=== PATIENT | female | born 1950 | race Caucasian/White ===

== ENCOUNTER 2023-03-03 12:52 | Emergency (ER) | payer MEDICARE, MEDICAID, SELFPAY ==
[2023-03-03] VITALS (8 sets, daily range): BP systolic 105–122; BP diastolic 54–79; PULSE 85–100; RESP 14–18; TEMP 37.1–38.8; O2SAT 89–98; BMI 22.4
--- NOTE | 2023-03-03 14:30 | ED_ITS ---
HPI - Female Genitourinary General: Chief complaint: Urogenital-Female Stated complaint: uti, back pain, headache Time Seen by Provider: 03/03/23 14:21 History of Present Illness: Presents to the ER for complaints of UTI and allover pain. Patient finished a round of Bactrim for UTI that was resistant to Bactrim and by the time she was notified of this approximately 4-5 more days past she has been on the Macrobid which it was sensitive to only for 24 hours. Patient is complaining of stomachache, headache, back and bladder pain, she went to the doctor yesterday and got a shot of Toradol but she is having more pain today than yesterday. Review of Systems General: Reports: 10 or more systems reviewed and unremarkable except in HPI and below PFSH ED PFSH: Medical History (Updated 03/03/23 @ 17:03 by Venu Gaitan DO) Psychiatric care Social History Smoking and tobacco status: never smoked Physical Exam Const: COMMON NORMALS: no acute distress, average body habitus, patient oriented x3, no limitations, healthy appearing, alert and well nourished HENMT: COMMON NORMALS: normocephalic, atraumatic, hearing grossly normal bilaterally, external ears normal, Normal external nose present and moist oral mucous membranes HEAD & SCALP: normocephalic and atraumatic NOSE: Normal external nose present EXTERNAL EAR: Yes external ears normal Neck/C-Spine: COMMON NORMALS: full ROM, no lymphadenopathy, supple, no meningeal signs, no JVD and Thyroid normal THYROID: Thyroid normal Chest: COMMONS NORMALS: normal inspection of the chest and normal palpation of entire chest wall Resp: COMMON NORMALS: normal respiratory effort, No retractions, No use of accessory muscles and clear to auscultation bilaterally AUSCULTATION: clear to auscultation bilaterally Cardio: COMMON NORMALS: no JVD, regular rate, regular rhythm, S1 normal heart sound present, S2 normal heart sound present, No gallops present (Cardio), No clicks present (Cardio), No murmurs present (Cardio) and No rub (Cardio) RATE: regular rate RHYTHM: regular rhythm HEART SOUNDS: S1 normal heart sound present and S2 normal heart sound present GI: COMMON NORMALS: Normal to inspection, nondistended, normoactive bowel sounds present, Soft to palpation, non-tender, No hepatosplenomegaly present and no masses PALPATION: Yes Soft to palpation and Yes No hepatosplenomegaly present : COMMON NORMALS: Yes no CVA tenderness BLADDER/KIDNEY EXAM: Yes no CVA tenderness Back/Pelvis: COMMON NORMALS: no CVA tenderness Neuro: COMMON NORMALS: patient oriented x3 SENSORIUM/ORIENTATION: Yes alert MENINGEAL SIGNS: Yes no meningeal signs Course Vital Signs: Vital signs: Vital Signs Temperature 101.8 F H 03/03/23 14:43 Pulse Rate 100 03/03/23 14:43 Respiratory Rate 18 03/03/23 14:43 Blood Pressure 105/58 03/03/23 16:30 Pulse Oximetry 91 03/03/23 16:00 Oxygen Delivery Me thod Room Air 03/03/23 14:43 MDM - Female Medical Decision Making Patient presents to the ER with complaints of general malaise headache back pain bladder pain. Patient is currently on antibiotic for urinary tract infection was only been on it for 24 hours. Physical exam was performed lab work was obtained which revealed patient's liver enzymes elevated with the AST of 252 and ALT of 138, CT scan with contrast was obtained of the abdomen pelvis which carole wed nonspecific colonic edema otherwise negative. Patient was instructed of these findings and told to continue on her antibiotics as these were the right antibiotics from the culture and sensitivity of her urine from her doctor's office. And she was instructed to follow-up with her doctor in approximately 7 to 10 days for recheck of her liver enzymes. Differential Diagnosis Unlikely abdominal pain, acute appendicitis, calculus of kidney, constipation, diverticulitis, endometriosis, gastroenteritis, pancreatitis or small bowel obstruction Medical Records I reviewed the patient's medical records. Lab Data I reviewed the patient's lab results. 03/03/23 14:38 03/03/23 14:38 Radiology Impressions Abdomen/Pelvis CT 03/03/23 15:35 IMPRESSION: 1. Suggestion of small renal cortical cysts. 2. Mild colonic diverticulosis. Moderate stool content. 3. Suggestion of mild submucosal edema involving the proximal half colon and some mild small bowel thickening. Findings are nonspecific. Consider inflammation. No focal mesenteric stranding. No bowel obstruction. 4. No acute findings otherwise. COMMENTS: Consistent with the [employer]'s Incidental Findings Committee white paper (J Am Patti Radiol 2018): Any incidental renal lesion less than 1 cm or classified as too small to characterize, or any incidental cystic renal lesion characterized as simple-appearing, is likely benign. No follow-up imaging is recommended for these lesions per consensus recommendations based on imaging criteria. Laboratory Results WBC 2.6 10^3/uL (4.0-10.0) L 03/03/23 14:38 RBC 4.93 10^6/uL (4.1-5.3) 03/03/23 14:38 Hgb 14.0 g/dL (11.5-15.3) 03/03/23 14:38 Hct 41.9 % (37.0-47.0) 03/03/23 14:38 MCV 85.0 fl (81-99) 03/03/23 14:38 MCH 28.4 pg (28.0-34.0) 03/03/23 14:38 MCHC 33.4 g/dL (30.0-36.0) 03/03/23 14:38 RDW 12.7 % (12.1-15.1) 03/03/23 14:38 Plt Count 151 10^3/cmm (130-400) 03/03/23 14:38 MPV 9.3 fL (7.4-10.4) 03/03/23 14:38 Neut % (Auto) 80.5 % 03/03/23 14:38 Lymph % (Auto) 14.4 % 03/03/23 14:38 [place] % (Auto) 3.9 % 03/03/23 14:38 Eos % (Auto) 0.0 % 03/03/23 14:38 Baso % (Auto) 0.8 % 03/03/23 14:38 Neut # (Auto) 2.07 10^3/uL (1.8-7.7) 03/03/23 14:38 Lymph # (Auto) 0.4 10^3/uL (0.8-4.8) L 03/03/23 14:38 [place] # (Auto) 0.1 10^3/uL (0.2-0.9) L 03/03/23 14:38 Eos # (Auto) 0.0 10^3/uL (0.0-0.8) 03/03/23 14:38 Baso # (Auto) 0.0 10^3/uL (0.0-0.1) 03/03/23 14:38 Nucleated RBC % (auto) 0 % 03/03/23 14:38 Nucleated RBCs # 0.0 /100WBC 03/03/23 14:38 Sodium 130 mmol/L (136-145) L 03/03/23 14:38 Potassium 4.4 mmol/L (3.5-5.1) 03/03/23 14:38 Chloride 93 mmol/L (98-107) L 03/03/23 14:38 Carbon Dioxide 27 mmol/L (22-29) 03/03/23 14:38 Anion Gap 14.4 (5-19) 03/03/23 14:38 BUN 17 mg/dL (-23) 03/03/23 14:38 Creatinine 0.9 mg/dL (0.5-0.9) 03/03/23 14:38 GFR Calculation 61.9 mL/min (90-130) L 03/03/23 14:38 Glucose 116 mg/dL (65-115) H 03/03/23 14:38 Calculated Osmolality 273 mOsm/kg (285-295) L 03/03/23 14:38 Calcium 9.1 mg/dL (8.5-10.5) 03/03/23 14:38 Total Bilirubin 0.3 mg/dL (0.15-1.2) 03/03/23 14:38 AST 252 U/L (0-32) H 03/03/23 14:38 ALT 138 U/L (0-33) H 03/03/23 14:38 Alkaline Phosphatase 192 U/L (35-105) H 03/03/23 14:38 Total Protein 6.9 g/dL (6.6-8.7) 03/03/23 14:38 Albumin 3.7 g/dL (3.5-5.2) 03/03/23 14:38 Globulin 3.2 g/dL (1.3-4.6) 03/03/23 14:38 Urine Color [place] (Yellow) 03/03/23 15:44 Urine Appearance Cloudy (CLEAR) A 03/03/23 15:44 Urine pH 5 (5-7) 03/03/23 15:44 Ur Specific [place] 1.020 (1.005-1.030) 03/03/23 15:44 Urine Protein 3+ (Negative) H 03/03/23 15:44 Urine Glucose (UA) Norm (Normal) 03/03/23 15:44 Urine Ketones Negative (Negative) 03/03/23 15:44 Urine Blood Neg (Negative) 03/03/23 15:44 Urine Nitrate Positive (Negative) H 03/03/23 15:44 Urine Bilirubin 2+ (Negative) H 03/03/23 15:44 Urine Urobilinogen 8 mg/dL (Negative) H 03/03/23 15:44 Ur Leukocyte Esterase Negative (Negative) 03/03/23 15:44 Urine RBC 0-4 /hpf (0-2) H 03/03/23 15:44 Urine WBC 5-10 /hpf (0-5) H 03/03/23 15:44 Ur Squamous Epith Cells 0-4 /hpf (0-5) H 03/03/23 15:44 Amorphous Sediment 2+ /hpf 03/03/23 15:44 Urine Bacteria Trace /hpf (NONE) 03/03/23 15:44 Hyaline Casts 0-4 /lpf H 03/03/23 15:44 Urine Mucus 1+ /hpf 03/03/23 15:44 Discharge Plan Discharge Patient Disposition: Home Clinical Impression: Colitis, nonspecific, Elevated liver enzymes Urinary tract infection Qualifiers: Urinary tract infection type: acute cystitis Hematuria presence: without hematuria Qualified Code(s): N30.00 - Acute cystitis without hematuria Condition: Stable Prescriptions: No Action clonazepam 1 mg tablet 1 - 2 mg PO BEDTIME PRN (Reason: Sleep) venlafaxine 75 mg capsule,extended release 24hr 75 mg PO QAM sumatriptan succinate 50 mg Tablet 50 mg PO Q2H PRN (Reason: Migraine Headache) Rx Instructions: do not exceed 4 doses per 24 hrs Vitamin B-12 1,000 mcg Tablet 1,000 mcg PO DAILY ginkgo biloba 40 mg Tablet 40 mg PO DAILY Rx Instructions: give with meal/snack nitrofurantoin macrocrystal 100 mg capsule 100 mg PO BID Rx Instructions: for 5 days (rx filled 03/01/23) ondansetron 4 mg tablet,disintegrating 4 mg PO TID PRN (Reason: Nausea) melatonin 5 mg Tablet 10 mg PO BEDTIME ashwagandha root extract 500 mg Capsule 500 mg PO DAILY Discharge Orders: Discharge ED (Routine); Ordered 03/03/23 Ordered By: Venu Gaitan Referrals: Omid Pak DO [Primary Care Provider] - 7-10 days Patient Instructions: Abdominal Pain (ED), Urinary Tract Infection - Women Activity Restrictions/Additional Instructions: Please take all your antibiotics as previously prescribed for your urinary tract infection. Please push plenty of fluids. Please follow-up with your family practice physician in approximately 7 to 10 days or sooner as needed for follow- up for your elevated liver enzymes. Coding Level of Care Code ED Legal Services Professional for Stefany Raza
[2023-03-03] MEDS: ketorolac 30 mg/mL INJ IVP (14:53)
[2023-03-03] MEDS: sodium chloride 0.9% 1,000 ML 999 ML IV (14:54)
[2023-03-03 14:55] LABS: Basophils % 0.8 %; Hematocrit 41.9 % (37.0-47.0); Lymphocytes # 0.4 10^3/uL (0.8-4.8); Lymphocytes % 14.4 %; Mean Corpuscular HGB Conc 33.4 g/dL (30.0-36.0); Mean Corpuscular Hemoglobin 28.4 pg (28.0-34.0); Mean Platelet Volume 9.3 fL (7.4-10.4); Monocytes # 0.1 10^3/uL (0.2-0.9); Monocytes % 3.9 %; Neutrophils # 2.07 10^3/uL (1.8-7.7); Neutrophils % 80.5 %; Nucleated Red Blood Cells % 0 %; Platelet Count 151 10^3/cmm (130-400); Red Blood Count 4.93 10^6/uL (4.1-5.3); Red Cell Distribution Width 12.7 % (12.1-15.1); White Blood Count 2.6 10^3/uL (4.0-10.0)
--- NOTE | 2023-03-03 15:10 | PC.PHAR ---
pt states she takes care of her own medications-pt states she is only taking effexor er 75mg daily filled 02/09/23 90d/s ext also shows er 150mg daily filled 02/09/23 90d/s pt states only taking 75mg qam-pt states she finished her bactrim ds 1 tab q12h for 7 days filled 02/20/23 7d/s-ext shows abilify 2mg daily filled 02/11/23 30d/s pt states she has side effects from abilify pt states only took a few days-pt states she is not taking viibryd 20mg daily fillled 01/07/23 30d/s-pepcid 20mg daily filled 12/12/22 90d/s or protonix 20mg take 40mg daily filled 12/08/22 90d/s-notes are made in the pharmacy comment
[2023-03-03 15:12] LABS: Alanine Aminotransferase 138 U/L (0-33); Albumin Level 3.7 g/dL (3.5-5.2); Alkaline Phosphatase 192 U/L (35-105); Anion Gap 14.4 (5-19); Aspartate Amino Transferase 252 U/L (0-32); Blood Urea Nitrogen 17 mg/dL (8-23); Calcium 9.1 mg/dL (8.5-10.5); Carbon Dioxide 27 mmol/L (22-29); Chloride 93 mmol/L (98-107); Globulin 3.2 g/dL (1.3-4.6); Glomerular Filtration Rate 61.9 mL/min (90-130); Glucose 116 mg/dL (65-115); Osmolality Calculated 273 mOsm/kg (285-295); Potassium 4.4 mmol/L (3.5-5.1); Sodium 130 mmol/L (136-145); Total Bilirubin 0.3 mg/dL (0.15-1.2); Total Protein 6.9 g/dL (6.6-8.7)
--- NOTE | 2023-03-03 15:35 | CTR_ITS ---
PROCEDURE INFORMATION: Exam: CT Abdomen And Pelvis With Contrast Exam date and time: 03/03/2023 4:11 PM Age: 72 years old Clinical indication: Abdominal pain; Generalized; Additional info: Abd pain, n/v, elevated lfts TECHNIQUE: Imaging protocol: Computed tomography of the abdomen and pelvis with contrast. Radiation optimization: All CT scans at this facility use at least one of these dose optimization techniques: automated exposure control; mA and/or kV adjustment per patient size (includes targeted exams where dose is matched to clinical indication); or iterative reconstruction. Contrast material: OMNI 350; Contrast volume: 100 ml; Contrast route: INTRAVENOUS (IV); REPORTING DATA: Count of CT and Cardiac NM exams in prior 12 months: This patient has received 0 known CTs and 0 known cardiac nuclear medicine studies in the 12 months prior to the current study. COMPARISON: CR XR abdomen 1V* [id number] 04/08/2019 8:58 AM RADIATION DOSE METRICS: Total DLP (mGy-cm): 370.43 FINDINGS: Lungs: Mild vascular crowding and/or atelectasis within the dependent portion of the lung bases on the lung windows. No significant infiltrate or effusion. Coronary arteries: Partially visualized coronary artery calcification. Liver: Normal. No mass. Gallbladder and bile ducts: Normal. No calcified stones. No ductal dilation. Pancreas: Normal. No ductal dilation. Spleen: Normal. No splenomegaly. Adrenal glands: Normal. No mass. Kidneys and ureters: Several too small to characterize rounded hypodense foci within the cortex of the kidneys likely small renal cysts. Kidneys appear otherwise. Stomach and bowel: Mild colonic diverticulosis. Moderate stool content. Suggestion of mild submucosal edema and particularly involving proximal half colon. Some mild small bowel wall thickening. Findings are nonspecific and consider inflammation. No focal mesenteric stranding. No bowel obstruction. Appendix: No evidence of appendicitis. Intraperitoneal space: Unremarkable. No free air. No significant fluid collection. Vasculature: Small amount of vascular calcification with unremarkable caliber of the abdominal aorta. Lymph nodes: Unremarkable. No enlarged lymph nodes. Urinary bladder: Unremarkable as visualized. Reproductive: Unremarkable as visualized. Bones/joints: Degenerative changes within the spine. Soft tissues: Unremarkable. CT/CT abdomen pelvis w con* [id number] IMPRESSION: 1. Suggestion of small renal cortical cysts. 2. Mild colonic diverticulosis. Moderate stool content. 3. Suggestion of mild submucosal edema involving the proximal half colon and some mild small bowel thickening. Findings are nonspecific. Consider inflammation. No focal mesenteric stranding. No bowel obstruction. 4. No acute findings otherwise. COMMENTS: Consistent with the [employer]'s Incidental Findings Committee white paper (J Am Patti Radiol 2018): Any incidental renal lesion less than 1 cm or classified as too small to characterize, or any incidental cystic renal lesion characterized as simple-appearing, is likely benign. No follow-up imaging is recommended for these lesions per consensus recommendations based on imaging criteria.
[2023-03-03] MEDS: iohexol 350 mg/mL 500 mL Btl (per mL) IV (16:17)
[2023-03-03] MEDS: acetaminophen 1,000 MG/100 ML PIGGYBACK 400 MG IV (16:22)
[2023-03-03 16:30] LABS: Add Urine Microscopic? YES; Bilirubin Urine 2+ (Negative); Blood Urine Neg (Negative); Glucose Urine UA Norm (Normal); Ketones Urine Negative (Negative); Leukocyte Esterase Urine Negative (Negative); Protein Urine 3+ (Negative); Urine Appearance Cloudy (CLEAR); Urine Color Orange (Yellow); Urobilinogen Urine 8 mg/dL (Negative); pH Urine 5 (5-7)
[2023-03-03 16:31] LABS: Amorphous Sediment Urine 2+ /hpf; Bacteria Urine TRACE /hpf; Hyaline Casts Urine 0-4 /lpf; Mucus Urine 1+ /hpf; RBC Urine 0-4 /hpf (0-2); Squamous Epithelial Cell Urine 0-4 /hpf (0-5)
[2023-03-03 16:32] LABS: Add Urine Culture? Yes; Nitrate Urine Positive (Negative)
== END 2023-03-03 17:29 | disposition home or self-care (01) ==
PROVIDERS: Emergency Provider Emergency Medicine; PCP Internal Medicine
DX: K52.9 Noninfective gastroenteritis and colitis, unspecified (principal); R74.8 Abnormal levels of other serum enzymes; N30.00 Acute cystitis without hematuria
CPT/HCPCS: 36415; 74177; 80053; 81001; 85025; 87040; 87086; 96361; 96374; 96375; 99285; J0131; J1885; J7030; Q9967

== ENCOUNTER 2023-03-05 11:15 | Inpatient (IN) | payer MEDICARE, MEDICAID, SELFPAY ==
[2023-03-05 11:22] VITALS: BP 114/65; PULSE 87; RESP 16; TEMP 37.3; O2SAT 95
--- NOTE | 2023-03-05 11:41 | W.ED.FEMALGU ---
HPI - Female Genitourinary General: Chief complaint: Urogenital-Female Stated complaint: abd N/V/D Time Seen by Provider: 03/05/23 11:25 Source: patient Mode of arrival: ambulatory Limitations: no limitations History of Present Illness: 72-year-old female states she has been having generalized weakness over the last week she is currently on antibiotics for UTI she states she started the new antibiotic on Thursday. She states that she just feels very fatigued so a hard time walking due to her fatigue she denies any pain anywhere denies any fever states she has not had any improvement with her antibiotics no vomiting no diarrhea. Associated symptoms: Deny abdominal pain, headache(s) or nausea Review of Systems Const: Reports: fatigue and malaise; Denies: fever(s) or chills Eyes: Denies: blurry vision or eye discomfort ENMT: Denies: throat pain or dental pain Card: Denies: chest pain Resp: Denies: dyspnea GI: Denies: abdominal pain, nausea, vomiting or diarrhea : Reports: urinary frequency Musc: Denies: neck pain or back pain Skin/Breast: Denies: rash Neuro: Denies: headache(s) PFSH ED PFSH: Medical History Psychiatric care Social History Smoking and tobacco status: never smoked Physical Exam Const: COMMON NORMALS: no acute distress, patient oriented x3 and healthy appearing HENMT: COMMON NORMALS: normocephalic and atraumatic HEAD & SCALP: normocephalic and atraumatic Eye: COMMON NORMALS: Equal, round and reactive pupils present and EOMs intact bilaterally PUPIL: Yes Equal, round and reactive pupils present Neck/C-Spine: COMMON NORMALS: full ROM and supple Chest: COMMONS NORMALS: normal inspection of the chest and normal palpation of entire chest wall Resp: COMMON NORMALS: normal respiratory effort, No retractions, No use of accessory muscles and clear to auscultation bilaterally AUSCULTATION: clear to auscultation bilaterally Cardio: COMMON NORMALS: regular rate, regular rhythm and No murmurs present (Cardio) RATE: regular rate RHYTHM: regular rhythm GI: COMMON NORMALS: Normal to inspection, nondistended, normoactive bowel sounds present, Soft to palpation, non-tender and no masses PALPATION: Yes Soft to palpation Extremity: COMMON NORMALS: normal to inspection and full ROM Neuro: COMMON NORMALS: patient oriented x3, moves all extremities and no focal motor deficits Psych: COMMON NORMALS: mental status grossly normal, Normal thought process present and cooperative THOUGHT PROCESS: Normal thought process present Skin: COMMON NORMALS: no rashes or lesions noted and no wounds GENERAL SKIN EXAM: no rashes or lesions noted Course Vital Signs: Vital signs: Vital Signs Temperature 99.1 F 03/05/23 11:22 Pulse Rate 84 03/05/23 12:37 Respiratory Rate 16 03/05/23 11:22 Blood Pressure 111/67 03/05/23 12:37 Pulse Oximetry 90 03/05/23 12:37 Oxygen Delivery Me thod Room Air 03/05/23 12:37 MDM - Female Medical Decision Making Patient presents with generalized weakness she is recently diagnosed UTI patient is hyponatremic here sodium is 124 she also has a slight pancytopenia we will send off a tick panel we will start her on doxycycline I spoke to the hospitalist who is going to admit for her hyponatremia and weakness. Lab Data 03/05/23 11:49 03/05/23 11:49 Laboratory Results WBC 2.8 10^3/uL (4.0-10.0) L 03/05/23 11:49 RBC 3.68 10^6/uL (4.1-5.3) L 03/05/23 11:49 Hgb 10.5 g/dL (11.5-15.3) L 03/05/23 11:49 Hct 31.9 % (37.0-47.0) L 03/05/23 11:49 MCV 86.7 fl (81-99) 03/05/23 11:49 MCH 28.5 pg (28.0-34.0) 03/05/23 11:49 MCHC 32.9 g/dL (30.0-36.0) 03/05/23 11:49 RDW 12.7 % (12.1-15.1) 03/05/23 11:49 Plt Count 74 10^3/cmm (130-400) L 03/05/23 11:49 MPV 10.7 fL (7.4-10.4) H 03/05/23 11:49 Neut % (Auto) 77.9 % 03/05/23 11:49 Lymph % (Auto) 13.9 % 03/05/23 11:49 [place] % (Auto) 7.8 % 03/05/23 11:49 Eos % (Auto) 0.0 % 03/05/23 11:49 Baso % (Auto) 0.4 % 03/05/23 11:49 Neut # (Auto) 2.19 10^3/uL (1.8-7.7) 03/05/23 11:49 Lymph # (Auto) 0.4 10^3/uL (0.8-4.8) L 03/05/23 11:49 [place] # (Auto) 0.2 10^3/uL (0.2-0.9) 03/05/23 11:49 Eos # (Auto) 0.0 10^3/uL (0.0-0.8) 03/05/23 11:49 Baso # (Auto) 0.0 10^3/uL (0.0-0.1) 03/05/23 11:49 Nucleated RBC % (auto) 0 % 03/05/23 11:49 Nucleated RBCs # 0.0 /100WBC 03/05/23 11:49 Sodium 124 mmol/L (136-145) L 03/05/23 11:49 Potassium 3.7 mmol/L (3.5-5.1) 03/05/23 11:49 Chloride 91 mmol/L (98-107) L 03/05/23 11:49 Carbon Dioxide 23 mmol/L (22-29) 03/05/23 11:49 Anion Gap 13.7 (5-19) 03/05/23 11:49 BUN 14 mg/dL (8-23) 03/05/23 11:49 Creatinine 0.9 mg/dL (0.5-0.9) 03/05/23 11:49 GFR Calculation 61.9 mL/min (90-130) L 03/05/23 11:49 Glucose 125 mg/dL (65-115) H 03/05/23 11:49 Calculated Osmolality 260 mOsm/kg (285-295) L 03/05/23 11:49 Calcium 7.4 mg/dL (8.5-10.5) L 03/05/23 11:49 Total Bilirubin 0.4 mg/dL (0.15-1.2) 03/05/23 11:49 AST 129 U/L (0-32) H 03/05/23 11:49 ALT 102 U/L (0-33) H 03/05/23 11:49 Alkaline Phosphatase 232 U/L (35-105) H 03/05/23 11:49 Total Protein 5.4 g/dL (6.6-8.7) L 03/05/23 11:49 Albumin 2.9 g/dL (3.5-5.2) L 03/05/23 11:49 Globulin 2.5 g/dL (1.3-4.6) 03/05/23 11:49 Lipase 28 U/L (13-60) 03/05/23 11:49 Discharge Plan Discharge Patient Disposition: Admitted As Inpatient Clinical Impression: Urinary tract infection, Hyponatremia, Weakness Condition: Stable Prescriptions: No Action clonazepam 1 mg tablet 1 - 2 mg PO BEDTIME PRN (Reason: Sleep) venlafaxine 75 mg capsule,extended release 24hr 75 mg PO QAM sumatriptan succinate 50 mg Tablet 50 mg PO Q2H PRN (Reason: Migraine Headache) Rx Instructions: do not exceed 4 doses per 24 hrs cyanocobalamin (vitamin B-12) [Vitamin B-12] 1,000 mcg Tablet 1,000 mcg PO DAILY ginkgo biloba 40 mg Tablet 40 mg PO DAILY Rx Instructions: give with meal/snack melatonin 5 mg Tablet 10 mg PO BEDTIME famotidine 20 mg tablet 20 mg PO DAILY betamethasone valerate 0.1 % cream 1 applic TOPICAL BID Referrals: Omid Pak DO [Primary Care Provider] - Coding Level of Care Code ED Support Group Manager for [facility]
[2023-03-05 12:00] LABS: Basophils % 0.4 %; Hematocrit 31.9 % (37.0-47.0); Hemoglobin 10.5 g/dL (11.5-15.3); Lymphocytes # 0.4 10^3/uL (0.8-4.8); Lymphocytes % 13.9 %; Mean Corpuscular HGB Conc 32.9 g/dL (30.0-36.0); Mean Corpuscular Hemoglobin 28.5 pg (28.0-34.0); Mean Corpuscular Volume 86.7 fl (81-99); Mean Platelet Volume 10.7 fL (7.4-10.4); Monocytes # 0.2 10^3/uL (0.2-0.9); Monocytes % 7.8 %; Neutrophils # 2.19 10^3/uL (1.8-7.7); Neutrophils % 77.9 %; Nucleated Red Blood Cells % 0 %; Platelet Count 74 10^3/cmm (130-400); Red Blood Count 3.68 10^6/uL (4.1-5.3); Red Cell Distribution Width 12.7 % (12.1-15.1); White Blood Count 2.8 10^3/uL (4.0-10.0)
[2023-03-05 12:17] LABS: Slide Review Slide Review Perform
[2023-03-05 12:25] LABS: Alanine Aminotransferase 102 U/L (0-33); Albumin Level 2.9 g/dL (3.5-5.2); Alkaline Phosphatase 232 U/L (35-105); Anion Gap 13.7 (5-19); Aspartate Amino Transferase 129 U/L (0-32); Blood Urea Nitrogen 14 mg/dL (8-23); Calcium 7.4 mg/dL (8.5-10.5); Carbon Dioxide 23 mmol/L (22-29); Chloride 91 mmol/L (98-107); Globulin 2.5 g/dL (1.3-4.6); Glomerular Filtration Rate 61.9 mL/min (90-130); Glucose 125 mg/dL (65-115); Lipase 28 U/L (13-60); Osmolality Calculated 260 mOsm/kg (285-295); Potassium 3.7 mmol/L (3.5-5.1); Sodium 124 mmol/L (136-145); Total Bilirubin 0.4 mg/dL (0.15-1.2); Total Protein 5.4 g/dL (6.6-8.7)
[2023-03-05] MEDS: meclizine 25 mg tablet PO (12:33)
[2023-03-05] MEDS: sodium chloride 0.9% 1,000 ML 999 ML IV (12:33)
[2023-03-05 12:37] VITALS: BP 111/67; PULSE 84; O2SAT 90
[2023-03-05 14:34] LABS: Lactate Dehydrogenase 442 U/L (135-214)
[2023-03-05 14:36] LABS: Reticulocyte % 0.5 % (0.5-2.0)
--- NOTE | 2023-03-05 14:38 | PC.NURSE ---
Patient arrived to med/surg 271, pt appears to be very weak when transfering from wheelchair to bed. Patient is alert and oriented x4.
[2023-03-05 14:46] LABS: Hepatitis A Antibody IgM Non-Reactive (Nonreactive); Hepatitis B Core IgM Non-Reactive (Nonreactive); Hepatitis B Surface Antigen Non-Reactive (Nonreactive); Hepatitis C Virus Antibody Non-Reactive (Nonreactive)
--- NOTE | 2023-03-05 14:48 | PM.HP ---
Providers/Chief Complaint Admitting Physician: Brandon Monroy Primary Care Provider: Omid Pak DO Chief Complaint: abd N/V/D History of Present Illness 72-year-old lady has had generalized weakness for close to about a week, prior to that additionally complains of UTI, pain all over, completed a course of Bactrim, although reportedly organism was resistant to Bactrim, was started additionally on Macrobid, states has 2 pills left. Received short of Toradol for her aches. On assessment in ER on 03/03 noted with transaminitis, AST 252, ALT 138, contrast CT with nonspecific colonic edema otherwise unremarkable. She was continued on antibiotic and requested to follow-up for reassessment. She returns to ER today due to continued generalized weakness, also has had few episodes of diarrhea, mild headache. Temp noted 99.1. Noted pancytopenia, WBC 2.8, hemoglobin 10.5, platelets 74. Also noted acute hyponatremia, sodium 124. Received a bolus of fluid 1000 mL. Still transaminitis, although slightly better, AST 129, ALT 102. Alk phos 232. T. bili normal. Tick panel is requested, received a dose of doxycycline. She has not noticed a tick bite, but has been going outdoors. Review of Systems Const: Reports: fatigue and malaise ENMT: Denies: throat pain Card: Denies: chest pain, edema, pre-syncope or dyspnea on exertion Resp: Denies: dyspnea, productive cough, change in phlegm color or hemoptysis GI: Reports: diarrhea; Denies: abdominal pain, nausea, vomiting, constipation, hematochezia or melena : Denies: flank pain, urinary frequency or hematuria Musc: Denies: back pain, joint swelling or joint redness Skin/Breast: Denies: rash or new lesions Neuro: Reports: headache(s) (Mild); Denies: numbness in extremities, weakness in extremities, dizziness, confusion or seizure-like activity Medications/Allergies Home Medications Medication Instructions Recorded Confirmed Last Taken Type clonazepam 1 mg tablet 1 - 2 mg PO BEDTIME PRN Sleep 03/10/20 03/05/23 Unknown History cyanocobalamin (vitamin B-12) 1,000 mcg PO DAILY 03/03/23 03/05/23 Unknown History 1,000 mcg tablet (Vitamin B-12) ginkgo biloba 40 mg tablet 40 mg PO DAILY 03/03/23 03/05/23 03/03/23 History melatonin 5 mg tablet 10 mg PO BEDTIME 03/03/23 03/05/23 03/04/23 History sumatriptan succinate 50 mg tablet 50 mg PO Q2H PRN Migraine Headache 03/03/23 03/05/23 Unknown History venlafaxine 75 mg capsule,extended 75 mg PO QAM 03/03/23 03/05/23 03/05/23 History release 24 hr betamethasone valerate 0.1 % 1 applic topical BID 03/05/23 03/05/23 Unknown History topical cream famotidine 20 mg tablet 20 mg PO DAILY 03/05/23 03/05/23 03/05/23 History Allergies Allergy/AdvReac Type Severity Reaction Status Date / Time aripiprazole [From Abilify] Allergy ADR-Irritab Verified 03/05/23 11:28 le lithium Allergy Unknown Verified 03/05/23 11:28 vilazodone [From Viibryd] Allergy Unknown Verified 03/05/23 11:28 PFSH Acute PFSH: Medical History Psychiatric care Social History Smoking and tobacco status: never smoked Alcohol intake: never Substance/Drug Use: never Lives independently: Yes Household members: significant other Vitals/I&O/Wt Last Vital Signs Temp 99.1 F 03/05/23 11:22 Pulse 84 03/05/23 12:37 Resp 16 03/05/23 11:22 BP 111/67 03/05/23 12:37 Pulse Ox 90 03/05/23 12:37 O2 Del Method Room Air 03/05/23 12:37 Weight last 48 hrs Weight 53.524 kg Physical Exam Const: COMMON NORMALS: patient oriented x3 and alert GENERAL APPEARANCE: cooperative ORIENTATION/CONSCIOUSNESS: Yes awake OTHER: Appears uncomfortable. HENMT: COMMON NORMALS: oropharynx normal OTHER: Dentures. Neck/C-Spine: COMMON NORMALS: no JVD Resp: COMMON NORMALS: normal respiratory effort and clear to auscultation bilaterally AUSCULTATION: clear to auscultation bilaterally Cardio: COMMON NORMALS: no JVD, regular rhythm, S1 normal heart sound present, S2 normal heart sound present and No murmurs present (Cardio) RHYTHM: regular rhythm HEART SOUNDS: S1 normal heart sound present and S2 normal heart sound present GI: COMMON NORMALS: Normal to inspection, nondistended, normoactive bowel sounds present, Soft to palpation and non-tender PALPATION: Yes Soft to palpation Extremity: COMMON NORMALS: no joint enlargement and no pedal edema Neuro: COMMON NORMALS: patient oriented x3 and moves all extremities SENSORIUM/ORIENTATION: Yes alert Skin: COMMON NORMALS: no rashes or lesions noted GENERAL SKIN EXAM: no rashes or lesions noted Data 03/05/23 11:49 03/05/23 11:49 A&P Assessment and plan (1) Hyponatremia: Acute hyponatremia, sodium at 124, on 03/03 was 130. Generalized weakness. Possibly symptomatic hyponatremia. Received a fluid challenge in ER, 1 L NS. Recheck sodium. Continue gentle hydration with LR. Possibly related to Bactrim. Function appears intact. Recheck chemistry. Check urine sodium, osmolality. (2) Generalized weakness: Discussed with her, unclear etiology. Some nonspecific symptoms with generalized weakness, mild headache, for episodes of nonbloody, nonmelanotic diarrhea, noted hyponatremia, transaminitis, pancytopenia, has been going outdoors. Discussed with her possible tickborne illness. Check tick panel, empiric doxycycline started in ER. Continue. Other etiologies possible. Recently UTI. Has been taking Macrobid. Hold further Macrobid. Prior to that completed a course of Bactrim. Hyponatremia possibly contributing. Check COVID PCR, possible COVID. Isolation for now. TSH noted normal. Check stool studies including C. difficile with recent antibiotics, bacterial panel, WBC. Gentle IV rehydration for dehydration. Check B12. Additional blood tests including LDH, haptoglobin, peripheral smear. Check CK (3) Pancytopenia: Not a clear cause, but does have several possibilities, including Bactrim, ginkgo, possible tickborne illness given recent fever, with pancytopenia, thrombocytopenia, transaminitis. Has been going outdoors. Tick panel requested. Started empirically and doxycycline, continue. (4) Elevated liver enzymes: Hold Macrobid. Hold ginkgo. Possibly related to Bactrim. Improving. Possibly tickborne illness as above. Noted recent CT unremarkable hepatobiliary system. Recheck liver parameters. Check viral hepatitis panel, discussed with her. (5) Diarrhea: Check stool studies as above. Plan Recent UTI: No suggestion of obstructive uropathy or pyelonephritis on CT. Request records from PCPs office with regards to her resistant urine organism. We will recheck UA. Attestations Medical Necessity Statement*: Place in observation for additional assessment management of generalized weakness, possibly symptomatic hyponatremia, pancytopenia, transaminitis, unresponsive to outpatient treatment. Diagnoses Hyponatremia E87.1 Generalized weakness R53.1 Pancytopenia D61.818 Elevated liver enzymes R74.8 Diarrhea R19.7
[2023-03-05] MEDS: doxycycline 100 MG in sodium chloride 0.9% (plus) 100 ML IV (15:30)
[2023-03-05 15:46] LABS: Vitamin B12 > 2000 pg/mL (232-1245)
[2023-03-05 15:54] LABS: Creatine Phosphokinase 106 U/L (26-192); LAB Peripheral Smear Sent for Review
[2023-03-05 16:19] VITALS: BP 125/68; PULSE 91; RESP 15; TEMP 36.6; O2SAT 92
[2023-03-05] MEDS: acetaminophen 325 mg Tablet 650 MG PO (17:50)
[2023-03-05] MEDS: lactated ringers 1,000 ML 75 ML IV (17:52)
[2023-03-05 19:04] VITALS: BP 101/53; PULSE 106; RESP 20; TEMP 39.2; O2SAT 87
--- NOTE | 2023-03-05 20:00 | PC.NURSE ---
WASTE EXAMINER reported pt having temp of 102.5 orally, pt had tylenol @ 1750, pt washed down, covers removed and cool compress applied to head and neck, pt no s/s of distress at this time
[2023-03-05 20:20] VITALS: O2SAT 91
[2023-03-05 20:30] VITALS: TEMP 36.7
[2023-03-05 21:29] LABS: Adenovirus Not Detected (NOT DETECT); Chlamydia Pneumoniae Not Detected (NOT DETECT); Coronavirus 229E,HKU1,NL63,OC4 Not Detected (NOT DETECT); Human Metapneumovirus Not Detected (NOT DETECT); Human Rhinovirus/Enterovirus Not Detected (NOT DETECT); Influenza A Not Detected (NOT DETECT); Influenza A H1 Not Detected (NOT DETECT); Influenza A H1-2009 Not Detected (NOT DETECT); Influenza A H3 Not Detected (NOT DETECT); Influenza B Not Detected (NOT DETECT); Mycoplasma Pneumoniae Not Detected (NOT DETECT); Parainfluenza Virus Type 1 Not Detected (NOT DETECT); Parainfluenza Virus Type 2 Not Detected (NOT DETECT); Parainfluenza Virus Type 3 Not Detected (NOT DETECT); Parainfluenza Virus Type 4 Not Detected (NOT DETECT); Respiratory Syncytial Virus A Not Detected (NOT DETECT); Respiratory Syncytial Virus B Not Detected (NOT DETECT); SARS-COV-2 Not Detected (NOT DETECT)
[2023-03-06] VITALS (8 sets, daily range): BP systolic 95–137; BP diastolic 57–73; PULSE 77–99; RESP 14–20; TEMP 36.7–38.6; O2SAT 88–92
[2023-03-06 01:03] LABS: Bilirubin Urine Neg (Negative); Blood Urine Neg (Negative); Glucose Urine UA Norm (Normal); Ketones Urine Negative (Negative); Nitrate Urine Negative (Negative); Protein Urine 1+ (Negative); Specific Gravity, Urine 1.015 (1.005-1.030); Urine Appearance Clear (CLEAR); Urine Color Yellow (Yellow); pH Urine 6 (5-7)
[2023-03-06 01:04] LABS: Add Urine Culture? No; Add Urine Microscopic? YES; Amorphous Sediment Urine 1+ /hpf; Bacteria Urine 1+ /hpf; Leukocyte Esterase Urine Negative (Negative); Mucus Urine 2+ /hpf; Squamous Epithelial Cell Urine 0-4 /hpf (0-5); Urobilinogen Urine Neg (Negative)
[2023-03-06 01:08] LABS: Urine Random Sodium 14 mmol/L
[2023-03-06] MEDS: doxycycline 100 MG in sodium chloride 0.9% (plus) 100 ML IV ×2 (02:31→15:21)
[2023-03-06] MEDS: acetaminophen 325 mg Tablet 650 MG PO (02:32)
[2023-03-06] MEDS: venlafaxine ER (24HR) 75 mg Capsule PO (05:07)
[2023-03-06 05:08] LABS: Hematocrit 28.7 % (37.0-47.0); Hemoglobin 9.8 g/dL (11.5-15.3); Lymphocytes # 0.2 10^3/uL (0.8-4.8); Mean Corpuscular HGB Conc 34.1 g/dL (30.0-36.0); Mean Corpuscular Hemoglobin 28.7 pg (28.0-34.0); Mean Corpuscular Volume 84.2 fl (81-99); Mean Platelet Volume 10.6 fL (7.4-10.4); Monocytes # 0.1 10^3/uL (0.2-0.9); Monocytes % 3.8 %; Neutrophils # 1.79 10^3/uL (1.8-7.7); Neutrophils % 85.7 %; Nucleated Red Blood Cells % 0 %; Platelet Count 68 10^3/cmm (130-400); Red Blood Count 3.41 10^6/uL (4.1-5.3); White Blood Count 2.1 10^3/uL (4.0-10.0)
[2023-03-06 05:27] LABS: Alanine Aminotransferase 105 U/L (0-33); Albumin Level 2.7 g/dL (3.5-5.2); Alkaline Phosphatase 213 U/L (35-105); Anion Gap 12.1 (5-19); Aspartate Amino Transferase 155 U/L (0-32); Blood Urea Nitrogen 12 mg/dL (8-23); Carbon Dioxide 21 mmol/L (22-29); Chloride 95 mmol/L (98-107); Glomerular Filtration Rate 70.9 mL/min (90-130); Glucose 142 mg/dL (65-115); Osmolality Calculated 262 mOsm/kg (285-295); Potassium 3.1 mmol/L (3.5-5.1); Sodium 125 mmol/L (136-145); Total Bilirubin 0.3 mg/dL (0.15-1.2); Total Protein 4.7 g/dL (6.6-8.7)
[2023-03-06 05:31] LABS: Slide Review Slide Review Perform
[2023-03-06] MEDS: lactated ringers 1,000 ML 75 ML IV ×2 (07:09→22:14)
[2023-03-06] MEDS: cyanocobalamin 1,000 mcg Tablet 1000 MCG PO (07:50)
--- NOTE | 2023-03-06 09:23 | PC.CHAP ---
Pastoral Care Encounter/Spiritual Assessment Type of Contact [] Declined materials scientist visit [] Patient/Family/Request visit [] Outpatient visit [] Follow-up visit [] Physician referral [] Code/Alert [] Routine visit [] Staff referral [] Actively dying [x] Patient sleeping [] Family support [] [] Out of room [] Palliative care [] [] Receiving care in room [] Pre-surgical visit [] Trauma [] Long length of stay [] ICU visit [] Other: Relational/Emotional Strength [] Patient feels connected with others/family/visitors/staff [] Distress [] Loneliness/isolation [] Abandonment Spirituality of Patient [] Person of Jada [] Attends Holiness of their Jada [] Believes in Prayer [] Reads Bible or Judaism materials [] There are Spiritual issues to be addressed Blocker Hand Interventions [] Prayer [] Active listening [] Non-anxious presence [] Spiritual/emotional support [] Crisis/trauma care [] Spiritual counseling [] Bereavement support [] Provided bereavement packet [] Provided Bible/devotional materials [] Provided toy/stuffed animal, coloring book to patient or family member [] Provided Communion [] Anointing/[place] [] Salvation [] Completed spiritual assessment [] Other: Impact on Illness or Injury [] Angry [] Fearful [] Anxious [] Often cries [] Exhaustion [] Unable to work [] Unable to attend scientology [] Unable to walk/stand [] Unable to read [] Unable to drive [] Unable to eat/drink [] Unable to sleep [] Unable to be with family [] Patient intubated [] Other: Summary Time spent with patient
[2023-03-06] MEDS: potassium chloride ER 20 mEq Tablet 40 MEQ PO (11:13)
[2023-03-06] MEDS: ciprofloxacin 400 MG/200 ML PREMIX 200 MG IV ×2 (11:14→22:14)
[2023-03-06] MEDS: metroNIDAZOLE IV 500 MG/100 ML PREMIX 100 MG IV ×2 (12:13→17:50)
[2023-03-06] MEDS: SUMAtriptan 25 mg Tablet 50 MG PO (12:19)
[2023-03-06] MEDS: ondansetron 2 mg/ML SDV 2 mL 4 MG IVP (12:49)
[2023-03-06] MEDS: ALPRAZolam 0.5 mg Tablet PO (15:21)
[2023-03-06 17:55] LABS: Lyme AB Screen <0.90 index
--- NOTE | 2023-03-06 20:30 | PM.PN ---
Subjective Subjective: Earlier this morning some tenderness in the abdomen reported by her nurse. Diarrhea appears slightly better. No vomiting. Still malaise. Poor appetite. Vitals/I&O/Wt Last Vital Signs Temp 98.7 F 03/06/23 16:00 Pulse 94 03/06/23 16:00 Resp 16 03/06/23 16:00 BP 137/73 03/06/23 16:00 Pulse Ox 90 03/06/23 16:00 O2 Del Method Nasal Cannula 03/06/23 16:00 O2 Flow Rate 2 03/05/23 20:20 03/06/23 03/06/23 03/06/23 06:59 14:59 22:59 Intake Total 100 / 1300 1536.25 / 1536.25 1040 / 2576.25 Balance 100 / 1300 1536.25 / 1536.25 1040 / 2576.25 Weight last 48 hrs Weight 53.524 kg Physical Exam Const: COMMON NORMALS: patient oriented x3 and alert GENERAL APPEARANCE: cooperative ORIENTATION/CONSCIOUSNESS: Yes awake OTHER: Malaise, but does not appear as uncomfortable as yesterday. HENMT: COMMON NORMALS: oropharynx normal OTHER: Dentures. Neck/C-Spine: COMMON NORMALS: no JVD Resp: COMMON NORMALS: normal respiratory effort and clear to auscultation bilaterally AUSCULTATION: clear to auscultation bilaterally Cardio: COMMON NORMALS: no JVD, regular rhythm, S1 normal heart sound present, S2 normal heart sound present and No murmurs present (Cardio) RHYTHM: regular rhythm HEART SOUNDS: S1 normal heart sound present and S2 normal heart sound present GI: COMMON NORMALS: Normal to inspection, nondistended, normoactive bowel sounds present, Soft to palpation and non-tender PALPATION: Yes Soft to palpation Extremity: COMMON NORMALS: no joint enlargement and no pedal edema Neuro: COMMON NORMALS: patient oriented x3 and moves all extremities SENSORIUM/ORIENTATION: Yes alert Skin: COMMON NORMALS: no rashes or lesions noted GENERAL SKIN EXAM: no rashes or lesions noted Data 03/06/23 04:20 03/06/23 04:20 Micro: Microbiology 03/06/23 03:15 Enteric Pathogens (PCR) - Final Stool Routine Collection 03/06/23 03:15 C.difficile Toxin B Gene (PCR) - Final Stool Routine Collection 03/06/23 03:15 Occult Blood (FIT) - Final Stool Routine Collection 03/06/23 03:15 Stool Lactoferrin - Final Stool A&P Assessment and plan (1) Fever: Pancytopenia, but ANCneutrophils 1790. recent UTI, but does not appear to have residual UTI, although appears with possible colitis with some abdominal tenderness, diarrhea, suggestion of possible colitis on recent abdominal CT. discussed with her broadening antibiotic coverage with ciprofloxacin and Flagyl. Started. Reassess condition. Concerned that she is progressing to neutropenic fever with severe neutropenia. With pancytopenia, at risk of severe life-threatening deterioration, sepsis. Possible tickborne illness suspected. She does state that she likes to walk out in the grass Although has not specifically found a tick. Continue doxycycline. Follow-up tick panel. (2) Hyponatremia: sodium only minimally better up to 125. Has had poor appetite. We will add some nutritional supplements, otherwise continue urea. Recheck sodium level.?Continue with gentle hydration with LR for now as well With poor oral intake at risk of dehydration. Continue treatment of possible tickborne illness. Possibly related to Bactrim. RenalFunction appears intact. Recheck chemistry. Urine sodium noted 14. Pending osmolality. UA unremarkable. (3) Generalized weakness: Assessed by PT. Ambulated with a walker with some minimal assistance to the restroom and back. Discussed with physical therapy. Continue treatment of suspected underlying conditions. Mobilize as tolerating.Add protein shakes. COVID PCR noted negative. Discussed with her, unclear etiology. Some nonspecific symptoms with generalized weakness, mild headache, for episodes of nonbloody, nonmelanotic diarrhea, noted hyponatremia, transaminitis, pancytopenia, has been going outdoors. Discussed with her possible tickborne illness. Check tick panel, empiric doxycycline started in ER. Continue. Other etiologies possible. Recently UTI. Has been taking Macrobid. Hold further Macrobid. Prior to that completed a course of Bactrim. Hyponatremia possibly contributing. TSH noted normal. Noted normal CK (4) Pancytopenia: Again noted WBC 2.1, hemoglobin 9.8, platelet 68. ANC 1790, lymphopenia 0.2, monocytopenia, 0.1. B12 noted not low. Discontinue supplement. TSH WNL. Peripheral smear pending. Haptoglobin not low. LDH with some elevation up to 442. Reticulocyte index with some hypoproliferation. We will Check ferritin. Check TIBC. Not a clear cause, but does have several possibilities, including Bactrim, ginkgo, possible tickborne illness given recent fever, with pancytopenia, thrombocytopenia, transaminitis. Has been going outdoors. Tick panel requested. Started empirically and doxycycline, continue. (5) Elevated liver enzymes: Noted AST 155, ALT 105, alk phos 213. T. bili is normal. Hold Macrobid. Hold ginkgo. Possibly related to Bactrim. Improving. Possibly tickborne illness as above. Noted recent CT unremarkable hepatobiliary system. Recheck liver parameters. Check viral hepatitis panel, discussed with her. (6) Diarrhea: Check stool studies as above. Plan Hypokalemia: given additional replacement. Recheck potassium. Recent UTI: No suggestion of obstructive uropathy or pyelonephritis on CT. Request records from PCPs office with regards to her resistant urine organism. We will recheck UA. Case management note reviewed. Attestations Medical Necessity Statement*: Continue admission for assessment and management of possible tickborne illness, with fever, pancytopenia, transaminitis, hyponatremia, Generalized weakness, recent UTI, possible colitis. Diagnoses Fever R50.9 Hyponatremia E87.1 Generalized weakness R53.1 Pancytopenia D61.818 Elevated liver enzymes R74.8 Diarrhea R19.7
[2023-03-06] MEDS: CLONazepam 1 mg Tablet PO (23:48)
[2023-03-07] VITALS (8 sets, daily range): BP systolic 99–127; BP diastolic 55–71; PULSE 59–85; RESP 15–20; TEMP 36.6–38.6; O2SAT 85–92
[2023-03-07] MEDS: metroNIDAZOLE IV 500 MG/100 ML PREMIX 100 MG IV ×3 (01:55→17:49)
[2023-03-07] MEDS: doxycycline 100 MG in sodium chloride 0.9% (plus) 100 ML IV ×2 (02:58→14:44)
[2023-03-07] MEDS: acetaminophen 325 mg Tablet 650 MG PO ×2 (03:54→21:11)
[2023-03-07] MEDS: venlafaxine ER (24HR) 75 mg Capsule PO (05:08)
[2023-03-07 05:43] LABS: Basophils % 0.4 %; Hemoglobin 10.2 g/dL (11.5-15.3); Lymphocytes # 0.6 10^3/uL (0.8-4.8); Lymphocytes % 24.4 %; Mean Corpuscular Hemoglobin 28.6 pg (28.0-34.0); Mean Platelet Volume 11.3 fL (7.4-10.4); Monocytes # 0.2 10^3/uL (0.2-0.9); Monocytes % 8.8 %; Neutrophils # 1.64 10^3/uL (1.8-7.7); Neutrophils % 65.6 %; Nucleated Red Blood Cells % 0 %; Platelet Count 78 10^3/cmm (130-400); Red Blood Count 3.57 10^6/uL (4.1-5.3); Red Cell Distribution Width 13.1 % (12.1-15.1); White Blood Count 2.5 10^3/uL (4.0-10.0)
[2023-03-07 06:02] LABS: Alanine Aminotransferase 71 U/L (0-33); Albumin Level 2.6 g/dL (3.5-5.2); Alkaline Phosphatase 192 U/L (35-105); Anion Gap 12.5 (5-19); Aspartate Amino Transferase 109 U/L (0-32); Blood Urea Nitrogen 8 mg/dL (8-23); Calcium 6.9 mg/dL (8.5-10.5); Carbon Dioxide 22 mmol/L (22-29); Chloride 96 mmol/L (98-107); Glomerular Filtration Rate 82.7 mL/min (90-130); Glucose 101 mg/dL (65-115); Osmolality Calculated 262 mOsm/kg (285-295); Potassium 3.5 mmol/L (3.5-5.1); Sodium 127 mmol/L (136-145); Total Bilirubin 0.3 mg/dL (0.15-1.2); Total Protein 4.6 g/dL (6.6-8.7)
[2023-03-07 06:07] LABS: Iron 19 ug/dL (37-145); Percent Saturation 13.7 % (20-50); Total Iron Binding Capacity 138 mcg/dl; Unsaturated Iron Binding 119 ug/dL (112-347)
[2023-03-07 06:20] LABS: Slide Review Slide Review Perform
[2023-03-07] MEDS: ciprofloxacin 400 MG/200 ML PREMIX 200 MG IV ×2 (09:45→21:06)
[2023-03-07] MEDS: lactated ringers 1,000 ML 75 ML IV (11:51)
[2023-03-07] MEDS: SUMAtriptan 25 mg Tablet 50 MG PO (14:19)
--- NOTE | 2023-03-07 20:55 | P.PN_ITS ---
Subjective Subjective: She is feeling slightly better today. Diarrhea perhaps a touch better. Vitals/I&O/Wt Last Vital Signs Temp 98.7 F 03/07/23 20:00 Pulse 69 03/07/23 20:00 Resp 17 03/07/23 20:00 BP 102/55 03/07/23 20:00 Pulse Ox 85 L 03/07/23 20:00 O2 Del Method Room Air 03/07/23 20:00 O2 Flow Rate 2 03/06/23 20:00 03/07/23 03/07/23 03/07/23 06:59 14:59 22:59 Intake Total 900 / 3976.25 1757.5 / 1757.5 200 / 1957.5 Output Total 1400 / 1401 Balance -500 / 2575.25 1757.5 / 1757.5 200 / 1957.5 Physical Exam Const: COMMON NORMALS: patient oriented x3 and alert GENERAL APPEARANCE: cooperative ORIENTATION/CONSCIOUSNESS: Yes awake OTHER: Appears more comfortable. HENMT: COMMON NORMALS: oropharynx normal OTHER: Dentures. Neck/C-Spine: COMMON NORMALS: no JVD Resp: COMMON NORMALS: normal respiratory effort and clear to auscultation bilaterally AUSCULTATION: clear to auscultation bilaterally Cardio: COMMON NORMALS: no JVD, regular rhythm, S1 normal heart sound present, S2 normal heart sound present and No murmurs present (Cardio) RHYTHM: regular rhythm HEART SOUNDS: S1 normal heart sound present and S2 normal heart sound present GI: COMMON NORMALS: Normal to inspection, nondistended, normoactive bowel sounds present, Soft to palpation and non-tender PALPATION: Yes Soft to palpation Extremity: COMMON NORMALS: no joint enlargement and no pedal edema Neuro: COMMON NORMALS: patient oriented x3 and moves all extremities SENSORIUM/ORIENTATION: Yes alert Skin: COMMON NORMALS: no rashes or lesions noted GENERAL SKIN EXAM: no rashes or lesions noted Data 03/07/23 04:52 03/07/23 04:52 A&P Assessment and plan (1) Fever: So far fevers subsided since early this morning. She is feeling somewhat better subjectively. Mild improvement in pancytopenia, WBC 2.5, neutrophils 1640, 6, lymphocytes, hemoglobin 10.2, platelet count 78. Noted iron deficiency. Very high ferritin, 9251. Cell counts do not otherwise suggest HLH. No hepatosplenomegaly. But will check triglycerides. Liver not appearing cirrhotic on recent CT abdomen pelvis. Does not drink alcohol. Continue treatment of suspected tickborne illness in the meantime, continue empiric coverage for possible colitis. Noted stool studies, negative C. difficile, negative enteric bacterial panel. Negative stool WBC and Hemoccult. Concerned that she is progressing to neutropenic fever with severe neutropenia. With pancytopenia, at risk of severe life-threatening deterioration, sepsis. Possible tickborne illness suspected. She does state that she likes to walk out in the grass Although has not specifically found a tick. Continue doxycycline. Follow-up tick panel. (2) Hyponatremia: Slightly better today, 127. Chloride 96. Continue urea. Continue regular diet. Has not had a very good appetite. Add nutritional supplements. Reassess sodium. Continue treatment of possible tickborne illness. Possibly related to Bactrim. RenalFunction appears intact. Recheck chemistry. Urine sodium noted 14. Pending osmolality. UA unremarkable. (3) Generalized weakness: Slight improvement. Assessed by PT. Ambulated with a walker with some minimal assistance to the restroom and back. Discussed with physical therapy. Continue treatment of suspected underlying conditions. Mobilize as tolerating.Add protein shakes. COVID PCR noted negative. Discussed with her, unclear etiology. Some nonspecific symptoms with generalized weakness, mild headache, for episodes of nonbloody, nonmelanotic diarrhea, noted hyponatremia, transaminitis, pancytopenia, has been going outdoors. Discussed with her possible tickborne illness. Check tick panel, empiric doxycycline started in ER. Continue. Other etiologies possible. Recently UTI. Has been taking Macrobid. Hold further Macrobid. Prior to that completed a course of Bactrim. Hyponatremia possibly contributing. TSH noted normal. Noted normal CK (4) Pancytopenia: Slightly better cell counts as above. Reassess blood counts. B12 noted not low. Discontinue supplement. TSH WNL. Peripheral smear pending. Haptoglobin not low. LDH with some elevation up to 442. Reticulocyte index with some hypoproliferation. We will Check ferritin. Check TIBC. Not a clear cause, but does have several possibilities, including Bactrim, ginkgo, possible tickborne illness given recent fever, with pancytopenia, thrombocytopenia, transaminitis. Has been going outdoors. Tick panel requested. Started empirically and doxycycline, continue. (5) Elevated liver enzymes: Noted improving. AST down to 109, ALT down to 71. Alk phos down to 192. T. bili normal. Hold Macrobid. Hold ginkgo. Possibly related to Bactrim. Improving. Possibly tickborne illness as above. Noted recent CT unremarkable hepatobiliary system. Recheck liver parameters. Check viral hepatitis panel, discussed with her. (6) Diarrhea: Noted stool studies as above. Plan Hypokalemia: Potassium noted 3.5. Recheck chemistry. Iron deficiency anemia: Noted negative Hemoccult. Recent UTI: No suggestion of obstructive uropathy or pyelonephritis on CT. Req uest records from PCPs office with regards to her resistant urine organism. We will recheck UA. Discussed with case management. Attestations Medical Necessity Statement*: Continue admission for assessment management of pancytopenia, hyponatremia, transaminitis, suspected tickborne illness, suspected colitis, and assessment for possible additional causes of generalized weakness. Diagnoses Fever R50.9 Hyponatremia E87.1 Generalized weakness R53.1 Pancytopenia D61.818 Elevated liver enzymes R74.8 Diarrhea R19.7
[2023-03-07] MEDS: ALPRAZolam 0.5 mg Tablet PO (22:24)
[2023-03-08] MEDS: lactated ringers 1,000 ML 75 ML IV (01:09)
[2023-03-08] MEDS: metroNIDAZOLE IV 500 MG/100 ML PREMIX 100 MG IV ×3 (01:09→17:16)
[2023-03-08] MEDS: doxycycline 100 MG in sodium chloride 0.9% (plus) 100 ML IV ×2 (03:00→15:07)
[2023-03-08 04:00] VITALS: BP 114/70; PULSE 53; RESP 17; TEMP 36.2; O2SAT 90
[2023-03-08 05:15] LABS: Basophils % 0.7 %; Eosinophils % 0.3 %; Hematocrit 31.7 % (37.0-47.0); Hemoglobin 10.6 g/dL (11.5-15.3); Lymphocytes # 1.5 10^3/uL (0.8-4.8); Lymphocytes % 48.5 %; Mean Corpuscular HGB Conc 33.4 g/dL (30.0-36.0); Mean Corpuscular Volume 83.9 fl (81-99); Mean Platelet Volume 11.3 fL (7.4-10.4); Monocytes # 0.3 10^3/uL (0.2-0.9); Monocytes % 10.5 %; Neutrophils # 1.21 10^3/uL (1.8-7.7); Neutrophils % 39.7 %; Nucleated Red Blood Cells % 0 %; Platelet Count 102 10^3/cmm (130-400); Red Blood Count 3.78 10^6/uL (4.1-5.3); Red Cell Distribution Width 13.4 % (12.1-15.1); White Blood Count 3.1 10^3/uL (4.0-10.0)
[2023-03-08 05:31] LABS: Alanine Aminotransferase 58 U/L (0-33); Albumin Level 2.5 g/dL (3.5-5.2); Alkaline Phosphatase 175 U/L (35-105); Anion Gap 10.5 (5-19); Aspartate Amino Transferase 83 U/L (0-32); Blood Urea Nitrogen 6 mg/dL (8-23); Calcium 7.3 mg/dL (8.5-10.5); Carbon Dioxide 24 mmol/L (22-29); Chloride 104 mmol/L (98-107); Globulin 2.1 g/dL (1.3-4.6); Glomerular Filtration Rate 82.7 mL/min (90-130); Glucose 109 mg/dL (65-115); Osmolality Calculated 278 mOsm/kg (285-295); Potassium 3.5 mmol/L (3.5-5.1); Sodium 135 mmol/L (136-145); Total Bilirubin 0.3 mg/dL (0.15-1.2); Total Protein 4.6 g/dL (6.6-8.7)
[2023-03-08 05:51] LABS: Slide Review Slide Review Perform
[2023-03-08] MEDS: venlafaxine ER (24HR) 75 mg Capsule PO (06:00)
[2023-03-08 07:41] VITALS: BP 130/73; PULSE 61; RESP 16; TEMP 36.9; O2SAT 90
[2023-03-08 08:02] LABS: Chol HDL Ratio 9.07 mg/dL (0.0-4.40); Cholesterol 136 mg/dL (0-200); HDL Cholesterol 15 mg/dL (60-100); LDL Cholesterol Calculated 56 mg/dL (50-129); LDL HDL Ratio 3.73 RATIO (0.00-3.22); Triglycerides 325 mg/dL (0-150)
[2023-03-08] MEDS: ciprofloxacin 400 MG/200 ML PREMIX 200 MG IV ×2 (10:34→22:13)
[2023-03-08 11:16] VITALS: BP 112/68; PULSE 57; RESP 16; TEMP 36.8; O2SAT 94
[2023-03-08 16:00] VITALS: BP 153/90; PULSE 70; RESP 16; TEMP 36.4; O2SAT 95
--- NOTE | 2023-03-08 16:14 | P.PN_ITS ---
Subjective Subjective: She is feeling better today. She has been ambulating more. So far no further diarrhea. So far fever has subsided. When she was standing in the shower, felt that her feet got somewhat swollen and appeared slightly purplish, but neither me or her nurse could appreciate that when she was lying in her bed afterward. Vitals/I&O/Wt Last Vital Signs Temp 98.2 F 03/08/23 11:16 Pulse 57 L 03/08/23 11:16 Resp 16 03/08/23 11:16 BP 112/68 03/08/23 11:16 Pulse Ox 94 03/08/23 11:16 O2 Del Method Room Air 03/08/23 11:16 O2 Flow Rate 2 03/06/23 20:00 03/08/23 03/08/23 03/08/23 06:59 14:59 22:59 Intake Total 1097.5 / 3175.0 838.75 / 838.75 Output Total 2 / 2 Balance 1095.5 / 3173.0 838.75 / 838.75 Physical Exam Const: COMMON NORMALS: patient oriented x3 and alert GENERAL APPEARANCE: cooperative ORIENTATION/CONSCIOUSNESS: Yes awake OTHER: Appears more comfortable. HENMT: COMMON NORMALS: oropharynx normal OTHER: Dentures. Neck/C-Spine: COMMON NORMALS: no JVD Resp: COMMON NORMALS: normal respiratory effort and clear to auscultation bilaterally AUSCULTATION: clear to auscultation bilaterally Cardio: COMMON NORMALS: no JVD, regular rhythm, S1 normal heart sound present, S2 normal heart sound present and No murmurs present (Cardio) RHYTHM: regular rhythm HEART SOUNDS: S1 normal heart sound present and S2 normal heart sound present GI: COMMON NORMALS: Normal to inspection, nondistended, normoactive bowel sounds present, Soft to palpation and non-tender PALPATION: Yes Soft to palpation Extremity: COMMON NORMALS: no joint enlargement and no pedal edema Neuro: COMMON NORMALS: patient oriented x3 and moves all extremities SENSORIUM/ORIENTATION: Yes alert Skin: COMMON NORMALS: no rashes or lesions noted GENERAL SKIN EXAM: no rashes or lesions noted Data 03/08/23 04:50 03/08/23 04:50 A&P Assessment and plan (1) Fever: So far has resolved. Subjectively she is feeling better. Blood counts noted to be improving. Still unidentified source of pancytopenia and fever. Possible tickborne illness. However, also noted very high ferritin. Triglycerides checked and elevated as well. Some possibility of HLH may have to be considered, although she is improving, no hepatosplenomegaly, cell counts not suggestive of HLH, but very high ferritin is unexplained. Reassess condition, consider follow-up with tertiary care center, in case of worsening condition discussed with her consideration of transfer. Otherwise consider still follow-up on the outpatient side as she does state that she gets similar episodes yearly. I do see some prior episodes of neutropenia mostly, not so much anemia or thrombocytopenia going back in 2014, additional episodes around 2005 and 2006. Consider follow- up with hematology. Noted iron deficiency. Very high ferritin, 9251. Noted elevated triglycerides. Liver not appearing cirrhotic on recent CT abdomen pelvis. Does not drink alcohol. Peripheral smear pending. Continue treatment of suspected tickborne illness in the meantime, continue empiric coverage for possible colitis. Noted stool studies, negative C. difficile, negative enteric bacterial panel. Negative stool WBC and Hemoccult. Noted lower neutrophils at 1200. Concern of possible improving neutropenic fever. Possible tickborne illness suspected. She does state that she likes to walk out in the grass Although has not specifically found a tick. Continue doxycycline. Follow-up tick panel. (2) Pancytopenia: Noted now gradually improving, WBC up to 3.1, but neutrophils are still lower at 1200. We will add neutropenic precautions. Neutropenic diet. Reassess blood counts and condition, consider if may need transfer to higher level care facility. Peripheral smear pending. Slightly better cell counts as above. Reassess blood counts. B12 noted not low. Discontinue supplement. TSH WNL. Peripheral smear pending. Haptoglobin not low. LDH with some elevation up to 442. Reticulocyte index with some hypoproliferation. We will Check ferritin. Check TIBC. Not a clear cause, but does have several possibilities, including Bactrim, ginkgo, possible tickborne illness given recent fever, with pancytopenia, thrombocytopenia, transaminitis. Has been going outdoors. Tick panel r equested. Started empirically and doxycycline, continue. (3) Hyponatremia: Hyponatremia better, 135. Diarrhea resolving. Stop LR, stop urea to avoid sodium rising too quickly, reassess chemistry. Chloride 104. Continue regular diet. Nutritional supplements. Reassess sodium. Continue treatment of possible tickborne illness. Possibly related to Bactrim. RenalFunction appears intact. Recheck chemistry. Urine sodium noted 14. Pending osmolality. UA unremarkable. (4) Generalized weakness: Gradually improving. Continue treatment of suspected underlying conditions. Mobilize as tolerating. Add protein shakes. COVID PCR noted negative. Discussed with her, unclear etiology. Some nonspecific symptoms with generalized weakness, mild headache, for episodes of nonbloody, nonmelanotic diarrhea, noted hyponatremia, transaminitis, pancytopenia, has been going outdoors. Discussed with her possible tickborne illness. Check tick panel, empiric doxycycline started in ER. Continue. Other etiologies possible. Recently UTI. Has been taking Macrobid. Hold further Macrobid. Prior to that completed a course of Bactrim. Hyponatremia possibly contributing. TSH noted normal. Noted normal CK (5) Elevated liver enzymes: Noted continue to improve. AST down to 83, ALT down to 58, alk phos down to 175. T. bili is normal. Hold Macrobid. Hold ginkgo. Possibly related to Bactrim. Improving. Possibly tickborne illness as above. Noted recent CT unremarkable hepatobiliary system. Recheck liver parameters. Check viral hepatitis panel, discussed with her. (6) Diarrhea: Noted stool studies as above. Plan Hypokalemia: Potassium noted 3.5. Recheck chemistry. Iron deficiency anemia: Noted negative Hemoccult. Recent UTI: No suggestion of obstructive uropathy or pyelonephritis on CT. Request records from PCPs office with regards to her resistant urine organism. We will recheck UA. Subjective foot swelling: Reports that her feet are swollen and purple, however, both myself and one of the nurses at bedside could not appreciate any swelling or purple discoloration. Feet appear normal, however, she noticed that earlier in the shower, possibly due to standing up, warm shower, could be some venous stasis, discussed with her to monitor, let us know in case there is any persistence. Discussed consideration of venous insufficiency, consideration of compression stockings, although cannot exactly at this time tell the etiology. She will let us know in case she notices changes again. Discussed with discharge planning. Attestations Medical Necessity Statement*: Continue admission for assessment management of fever, pancytopenia, neutropenia, possible tickborne illness, consideration of additional etiologies, improving hyponatremia, generalized weakness, transaminitis, possible colitis. Diagnoses Fever R50.9 Pancytopenia D61.818 Hyponatremia E87.1 Generalized weakness R53.1 Elevated liver enzymes R74.8 Diarrhea R19.7
[2023-03-08 20:00] VITALS: BP 136/69; PULSE 72; RESP 18; TEMP 36.4; O2SAT 93
[2023-03-08] MEDS: CLONazepam 1 mg Tablet PO (20:05)
[2023-03-08] MEDS: ALPRAZolam 0.5 mg Tablet PO (22:13)
[2023-03-08 23:20] VITALS: BP 144/76; PULSE 57; RESP 16; TEMP 36.9; O2SAT 92
[2023-03-08] MEDS: acetaminophen 325 mg Tablet 650 MG PO (23:20)
[2023-03-09] MEDS: metroNIDAZOLE IV 500 MG/100 ML PREMIX 100 MG IV ×2 (02:03→11:16)
[2023-03-09] MEDS: doxycycline 100 MG in sodium chloride 0.9% (plus) 100 ML IV (03:08)
[2023-03-09 04:00] VITALS: BP 130/70; PULSE 55; RESP 16; TEMP 36.8; O2SAT 90
[2023-03-09] MEDS: venlafaxine ER (24HR) 75 mg Capsule PO (05:25)
[2023-03-09 05:44] LABS: Basophils # 0.1 10^3/uL (0.0-0.1); Eosinophils % 0.5 %; Hematocrit 33.9 % (37.0-47.0); Hemoglobin 11.2 g/dL (11.5-15.3); Lymphocytes # 4.5 10^3/uL (0.8-4.8); Lymphocytes % 73.7 %; Mean Corpuscular Hemoglobin 27.9 pg (28.0-34.0); Mean Corpuscular Volume 84.3 fl (81-99); Monocytes # 0.6 10^3/uL (0.2-0.9); Monocytes % 9.3 %; Neutrophils % 14.5 %; Nucleated Red Blood Cells % 0 %; Platelet Count 135 10^3/cmm (130-400); Red Blood Count 4.02 10^6/uL (4.1-5.3); Red Cell Distribution Width 13.7 % (12.1-15.1); White Blood Count 6.2 10^3/uL (4.0-10.0)
[2023-03-09 06:00] LABS: Alanine Aminotransferase 52 U/L (0-33); Albumin Level 2.6 g/dL (3.5-5.2); Alkaline Phosphatase 162 U/L (35-105); Anion Gap 12.4 (5-19); Aspartate Amino Transferase 78 U/L (0-32); Blood Urea Nitrogen 4 mg/dL (8-23); Calcium 7.6 mg/dL (8.5-10.5); Carbon Dioxide 24 mmol/L (22-29); Chloride 103 mmol/L (98-107); Globulin 2.3 g/dL (1.3-4.6); Glomerular Filtration Rate 98.8 mL/min (90-130); Glucose 106 mg/dL (65-115); Osmolality Calculated 279 mOsm/kg (285-295); Potassium 3.4 mmol/L (3.5-5.1); Sodium 136 mmol/L (136-145); Total Bilirubin 0.3 mg/dL (0.15-1.2); Total Protein 4.9 g/dL (6.6-8.7)
[2023-03-09 06:19] LABS: Slide Review Slide Review Perform
[2023-03-09 07:08] VITALS: BP 134/74; PULSE 59; RESP 16; TEMP 36.7; O2SAT 91
[2023-03-09 11:23] VITALS: BP 156/81; PULSE 68; RESP 15; TEMP 36.6; O2SAT 92
[2023-03-09] MEDS: ciprofloxacin 400 MG/200 ML PREMIX 200 MG IV (12:57)
--- NOTE | 2023-03-09 15:13 | PM.PN ---
Subjective Subjective: WBC count improved to 6.3 today. ANC is 0.9. Diarrhea has resolved. States that she is feeling better. Remains hemodynamically stable and afebrile. Medications: Reviewed: Yes Vitals/I&O/Wt Last Vital Signs Temp 97.8 F 03/09/23 11:23 Pulse 68 03/09/23 11:23 Resp 15 03/09/23 11:23 BP 156/81 03/09/23 11:23 Pulse Ox 92 03/09/23 11:23 O2 Del Method Room Air 03/09/23 11:23 O2 Flow Rate 2 03/09/23 08:00 03/09/23 03/09/23 03/09/23 06:59 14:59 22:59 Intake Total 1000 / 8.75 580 / 580 Balance 999 / 2087.75 580 / 580 Physical Exam Narrative: General: No acute distress, AO x3 HEENT: PERRLA, pupils bilaterally equal and reactive, pallors not present Chest: Normal vesicular breath sounds, no added sounds, equal good air entry bilaterally CVS: S1-S2 regular, no murmurs, no tachycardia, no gallops, no rubs Abdomen: Soft, nontender, no organomegaly, bowel sounds present Neuro: No focal deficits, no facial deformity, AO x3, power 5/5 in all limbs Data 03/09/23 05:03 03/09/23 05:03 A&P Assessment and plan (1) Fever: So far has resolved. Subjectively she is feeling much better. Blood counts noted to be improving. D/c neutropenic precautions at ANC at 900. We will resume only if ANC drops to less than 500. Cause of her symptoms currently unknown possible tickborne illness. Noted high ferritin, likely to be acute phase reactant. Less likely HLH given that patient is nontoxic-appearing, improved without any directed treatment for HLH with antibiotics. Discussed with her that would be appropriate to check ferritin approximately a month after interval resolution of acute illness. If persistently elevated may consider undergoing bone marrow aspiration and evaluation for other underlying inflammatory or autoimmune conditions. No evidence of splenomegaly. Fever has resolved. Peripheral smear remains pending. Continue treatment of suspected tickborne illness with doxycycline Negative Lyme serology. Pending ehrlichia serology. (2) Pancytopenia: Noted now gradually improving, d/c isolation precautions ANC 900 (3) Hyponatremia: Hyponatremia better, 135. Diarrhea resolving. D/c iv cipro and flagyl- change to augmentin (4) Generalized weakness: Improving COVID PCR noted negative. (5) Elevated liver enzymes: Likely tick borne illness No liver or bilairy abnormalities on CT (6) Diarrhea: Noted stool studies as above. Attestations Medical Necessity Statement*: D/c iv abx monitor counts in 24 hrs, anticipate discharge if continued improving trend Coding Level of Care Code Acute Code for [facility] Fwd Diagnoses Fever R50.9 Pancytopenia D61.818 Hyponatremia E87.1 Generalized weakness R53.1 Elevated liver enzymes R74.8 Diarrhea R19.7
[2023-03-09 15:47] VITALS: BP 163/80; PULSE 57; RESP 15; TEMP 36.4; O2SAT 93
[2023-03-09 16:09] LABS: Osmolality Urine 390 mOsm/kg (50-1200)
[2023-03-09] MEDS: doxycycline 100 mg Tablet PO (17:25)
[2023-03-09] MEDS: amoxicillin-clav 875-125 mg Tablet 1 TAB PO (17:26)
[2023-03-09] MEDS: ondansetron 2 mg/ML SDV 2 mL 4 MG IVP (18:31)
[2023-03-09 20:00] VITALS: BP 154/74; PULSE 60; RESP 17; TEMP 36.2; O2SAT 93
[2023-03-10] VITALS: BP 158/79; PULSE 58; RESP 17; TEMP 36.4; O2SAT 93
[2023-03-10] MEDS: CLONazepam 1 mg Tablet PO (02:59)
[2023-03-10] MEDS: acetaminophen 325 mg Tablet 650 MG PO (03:03)
[2023-03-10 04:00] VITALS: BP 151/66; PULSE 55; RESP 17; TEMP 36.1; O2SAT 93
[2023-03-10] MEDS: venlafaxine ER (24HR) 75 mg Capsule PO (05:19)
[2023-03-10 05:22] LABS: Basophils # 0.1 10^3/uL (0.0-0.1); Basophils % 0.8 %; Eosinophils # 0.1 10^3/uL (0.0-0.8); Eosinophils % 0.6 %; Hemoglobin 11.4 g/dL (11.5-15.3); Lymphocytes % 81.3 %; Mean Corpuscular HGB Conc 33.5 g/dL (30.0-36.0); Mean Corpuscular Hemoglobin 28.1 pg (28.0-34.0); Mean Corpuscular Volume 83.7 fl (81-99); Monocytes % 8.4 %; Neutrophils % 7.8 %; Nucleated Red Blood Cells % 0 %; Platelet Count 182 10^3/cmm (130-400); Red Blood Count 4.06 10^6/uL (4.1-5.3); Red Cell Distribution Width 13.9 % (12.1-15.1); White Blood Count 12.3 10^3/uL (4.0-10.0)
[2023-03-10 05:42] LABS: Alanine Aminotransferase 61 U/L (0-33); Albumin Level 2.9 g/dL (3.5-5.2); Alkaline Phosphatase 168 U/L (35-105); Anion Gap 12.3 (5-19); Aspartate Amino Transferase 114 U/L (0-32); Blood Urea Nitrogen 5 mg/dL (8-23); Calcium 7.5 mg/dL (8.5-10.5); Carbon Dioxide 25 mmol/L (22-29); Chloride 101 mmol/L (98-107); Globulin 2.3 g/dL (1.3-4.6); Glomerular Filtration Rate 98.8 mL/min (90-130); Glucose 104 mg/dL (65-115); Osmolality Calculated 278 mOsm/kg (285-295); Potassium 3.3 mmol/L (3.5-5.1); Sodium 135 mmol/L (136-145); Total Bilirubin 0.3 mg/dL (0.15-1.2); Total Protein 5.2 g/dL (6.6-8.7)
[2023-03-10 05:54] LABS: Slide Review Slide Review Perform
[2023-03-10 05:55] LABS: Neutrophils # 0.95 10^3/uL (1.8-7.7)
[2023-03-10 07:23] VITALS: BP 156/76; PULSE 56; RESP 20; TEMP 36.7; O2SAT 91
[2023-03-10] MEDS: amoxicillin-clav 875-125 mg Tablet 1 TAB PO (08:20)
[2023-03-10] MEDS: doxycycline 100 mg Tablet PO (08:20)
--- NOTE | 2023-03-10 10:07 | PC.CHAP ---
Pastoral Care Encounter/Spiritual Assessment Type of Contact [] Declined battery installer visit [] Patient/Family/Request visit [] Outpatient visit [] Follow-up visit [] Physician referral [] Code/Alert [x] Routine visit [] Staff referral [] Actively dying [] Patient sleeping [] Family support [] [] Out of room [] Palliative care [] [] Receiving care in room [] Pre-surgical visit [] Trauma [] Long length of stay [] ICU visit [] Other: Relational/Emotional Strength [x] Patient feels connected with others/family/visitors/staff [] Distress [] Loneliness/isolation [] Abandonment Spirituality of Patient [x] Person of Jada [x] Attends Nondenominational of their Jada [x] Believes in Prayer [x] Reads Bible or Zoroastrian materials [] There are Spiritual issues to be addressed Fitness Centre Manager Interventions [x] Prayer [x] Active listening [] Non-anxious presence [x] Spiritual/emotional support [] Crisis/trauma care [] Spiritual counseling [] Bereavement support [] Provided bereavement packet [] Provided Bible/devotional materials [] Provided toy/stuffed animal, coloring book to patient or family member [] Provided Communion [] Anointing/Winger [] Salvation [x] Completed spiritual assessment [] Other: Impact on Illness or Injury [] Angry [] Fearful [] Anxious [] Often cries [] Exhaustion [] Unable to work [] Unable to attend scientology [] Unable to walk/stand [] Unable to read [] Unable to drive [] Unable to eat/drink [] Unable to sleep [] Unable to be with family [] Patient intubated [] Other: Summary Time spent with patient 10 min
--- NOTE | 2023-03-10 10:26 | PC.SOCIAL ---
Imm update Imm updated with patient at bedside. Copy of page 2 provided, patient verbalized understanding. Copy of chart initialed, dated and timed.
[2023-03-10 11:22] VITALS: BP 166/70; PULSE 48; RESP 19; TEMP 36.7; O2SAT 96
--- NOTE | 2023-03-10 11:40 | ECG_ITS ---
[facility] Test Date: 2023-03-10 Pat Name: Kisha Villalobos Department: Room: 271 Gender: Female Supervisor Machining: : 1950 Requested By: Temi Reza Order Number: [id number] Marybel MD: Sandie Martínez M.D. Measurements Intervals [place] Rate: 53 P: 58 PA: 153 QRS: -3 QRSD: 128 T: 32 QT: 470 QTc: 441 Interpretive Statements SINUS BRADYCARDIA RIGHT BUNDLE BRANCH BLOCK [120+ ms QRS DURATION, UPRIGHT V1, 40+ ms S IN I/aVL/V4/V5/V6] No previous ECG available for comparison Electronically Signed On 03-11-2023 19:57:04 CDT by Sandie Martínez M.D. [id number]
--- NOTE | 2023-03-10 12:12 | P.DS_ITS ---
Discharge Providers Date of Admission: 03/07/23 09:22 Date of Discharge: March 10, 2023 Attending Provider at Admission: Brandon Monroy Attending Provider at Discharge: Temi Reza MD Primary Care Provider: Omid Pak DO Diagnoses at Discharge Discharge Diagnosis (1) Fever: Status: Acute (2) Pancytopenia: Status: Acute (3) Hyponatremia: Status: Acute (4) Generalized weakness: Status: Acute (5) Elevated liver enzymes: Status: Acute (6) Diarrhea: Status: Acute Reason for Visit Reason for Visit: abd N/V/D Hospital Course Hospital Course 72-year-old lady has had generalized weakness for close to about a week, On assessment in ER on 03/03 noted with transaminitis, AST 252, ALT 138, contrast CT with nonspecific colonic edema otherwise unremarkable. She returned to ER today due to continued generalized weakness, also has had few episodes of diarrhea, mild headache.? Temp noted 99.1.? Noted pancytopenia, WBC 2.8, hemoglobin 10.5, platelets 74.? Also noted acute hyponatremia, sodium 124.? Received a bolus of fluid 1000 mL.? Still transaminitis, although slightly better, AST 129, ALT 102.? Alk phos 232.? T. bili normal.?? Hospital course as follows: (1) Fever Resolved since 03/07 .? Subjectively she is feeling much better.? Blood counts noted to be improving. WBC improved from 2.6 to 12.3 at discharge. ANC continues to be at 950, Hb stabilized at 11.4 Platelets improved from 68 to 182 Cause of her symptoms currently not precisly known but suspected to be possible tickborne illness.? She received empiric treatment with doxycycline 100mg BID Noted high ferritin ~9000, unknown chronicity, likely to be acute phase reactant. Less likely HLH given that patient is nontoxic-appearing, improved without any directed treatment for HLH with antibiotics. Discussed with her that would be appropriate to check ferritin approximately a month after interval resolution of acute illness.? If persistently elevated may consider undergoing bone marrow aspiration and evaluation for other underlying inflammatory or autoimmune conditions. No evidence of splenomegaly.? Fever has resolved. Peripheral smear as follows: Mild to moderate pancytopenia with normochromic, normocytic red blood cell indices.? No tear drop cells, schistocytes or nucleated red blood cells seen.? No overt dyspoietic or megaloblastic features.? No organisms seen.? Blasts are not present.? No platelet clumping is seen.? Drug effect, infection, or other reactive/secondary etiology is favored Continued treatment of suspected tickborne illness with doxycycline at discharge Negative Lyme serology.? Pending ehrlichia serology. follow up in 2 days with repeat CMP and CBC (2) Pancytopenia: Noted now gradually improving (3) Hyponatremia: resolved (4) Suggestion of mild submucosal edema involving the proximal half colon and some mild small bowel thickening.? Findings are nonspecific.? Received empiric ciprofloxacin and metronidazole in the hospital, transition to oral Augmentin at the time of discharge COVID PCR noted negative. Physical Exam Narrative: General: No acute distress, AO x3 HEENT: PERRLA, pupils bilaterally equal and reactive, pallors not present Chest: Normal vesicular breath sounds, no added sounds, equal good air entry bilaterally CVS: S1-S2 regular, no murmurs, no tachycardia, no gallops, no rubs Abdomen: Soft, nontender, no organomegaly, bowel sounds present Neuro: No focal deficits, no facial deformity, AO x3, power 5/5 in all limbs Discharge Data Studies Completed and Pending Pending at discharge Category Date Time Status Complete Blood Count w/Auto AM LABS Lab 03/11/23 04:00 Ordered Comprehensive Metabolic Panel AM LABS Lab 03/11/23 04:00 Ordered Tick Panel Stat Lab 03/05/23 11:49 Results Laboratory Results WBC 12.3 10^3/uL (4.0-10.0) H 03/10/23 04:35 RBC 4.06 10^6/uL (4.1-5.3) L 03/10/23 04:35 Hgb 11.4 g/dL (11.5-15.3) L 03/10/23 04:35 Hct 34.0 % (37.0-47.0) L 03/10/23 04:35 MCV 83.7 fl (81-99) 03/10/23 04:35 MCH 28.1 pg (28.0-34.0) 03/10/23 04:35 MCHC 33.5 g/dL (30.0-36.0) 03/10/23 04:35 RDW 13.9 % (12.1-15.1) 03/10/23 04:35 Plt Count 182 10^3/cmm (130-400) D 03/10/23 04:35 MPV 11.0 fL (7.4-10.4) H 03/10/23 04:35 Neut % (Auto) 7.8 % 03/10/23 04:35 Lymph % (Auto) 81.3 % 03/10/23 04:35 [place] % (Auto) 8.4 % 03/10/23 04:35 Eos % (Auto) 0.6 % 03/10/23 04:35 Baso % (Auto) 0.8 % 03/10/23 04:35 Reticulocyte % (Auto) 0.5 % (0.5-2.0) 03/05/23 11:49 Neut # (Auto) 0.95 10^3/uL (1.8-7.7) L* 03/10/23 04:35 Lymph # (Auto) 10.0 10^3/uL (0.8-4.8) H 03/10/23 04:35 [place] # (Auto) 1.0 10^3/uL (0.2-0.9) H 03/10/23 04:35 Eos # (Auto) 0.1 10^3/uL (0.0-0.8) 03/10/23 04:35 Baso # (Auto) 0.1 10^3/uL (0.0-0.1) 03/10/23 04:35 Nucleated RBC % (auto) 0 % 03/10/23 04:35 Nucleated RBCs # 0.0 /100WBC 03/10/23 04:35 Peripher Smr Path Cons Sent for review 03/05/23 11:49 Retic Production Index 0.40 03/05/23 11:49 Haptoglobin 123.0 mg/L (30-200) 03/05/23 11:49 Sodium 135 mmol/L (136-145) L 03/10/23 04:35 Potassium 3.3 mmol/L (3.5-5.1) L 03/10/23 04:35 Chloride 101 mmol/L (98-107) 03/10/23 04:35 Carbon Dioxide 25 mmol/L (22-29) 03/10/23 04:35 Anion Gap 12.3 (5-19) 03/10/23 04:35 BUN 5 mg/dL (8-23) L 03/10/23 04:35 Creatinine 0.6 mg/dL (0.5-0.9) 03/10/23 04:35 GFR Calculation 98.8 mL/min (90-130) 03/10/23 04:35 Glucose 104 mg/dL (65-115) 03/10/23 04:35 Calculated Osmolality 278 mOsm/kg (285-295) L 03/10/23 04:35 Calcium 7.5 mg/dL (8.5-10.5) L 03/10/23 04:35 Iron 19 ug/dL (37-145) L 03/07/23 04:52 Iron Cancelled 03/07/23 04:52 TIBC 138 mcg/dl 03/07/23 04:52 TIBC Cancelled 03/07/23 04:52 % Saturation 13.7 % (20-50) L 03/07/23 04:52 % Saturation Cancelled 03/07/23 04:52 Unsat Iron Binding 119 ug/dL (112-347) 03/07/23 04:52 Unsat Iron Binding Cancelled 03/07/23 04:52 Ferritin > 9251 ng/mL (15-150) H 03/07/23 04:52 Total Bilirubin 0.3 mg/dL (0.15-1.2) 03/10/23 04:35 AST 114 U/L (0-32) H 03/10/23 04:35 ALT 61 U/L (0-33) H 03/10/23 04:35 Alkaline Phosphatase 168 U/L (35-105) H 03/10/23 04:35 Lactate Dehydrogenase 442 U/L (135-214) H 03/05/23 11:49 Creatine Kinase 106 U/L (26-192) 03/05/23 11:49 Total Protein 5.2 g/dL (6.6-8.7) L 03/10/23 04:35 Albumin 2.9 g/dL (3.5-5.2) L 03/10/23 04:35 Globulin 2.3 g/dL (1.3-4.6) 03/10/23 04:35 Triglycerides 325 mg/dL (0-150) H 03/08/23 04:50 Triglycerides Cancelled 03/08/23 04:50 Cholesterol 136 mg/dL (0-200) 03/08/23 04:50 Cholesterol Cancelled 03/08/23 04:50 LDL Cholesterol, Calc 56 mg/dL (50-129) 03/08/23 04:50 LDL Cholesterol, Calc Cancelled 03/08/23 04:50 Total VLDL Cholesterol Cancelled 03/08/23 04:50 HDL Cholesterol 15 mg/dL (60-100) L 03/08/23 04:50 HDL Cholesterol Cancelled 03/08/23 04:50 LDL/HDL Ratio 3.73 RATIO (0.00-3.22) H 03/08/23 04:50 Cholesterol/HDL Ratio 9.07 mg/dL (0.0-4.40) H 03/08/23 04:50 Cholesterol/HDL Ratio Cancelled 03/08/23 04:50 Lipase 28 U/L (13-60) 03/05/23 11:49 Vitamin B12 > 2000 pg/mL (232-1245) H 03/05/23 11:49 Urine Color Yellow (Yellow) 03/06/23 00:04 Urine Appearance Clear (CLEAR) 03/06/23 00:04 Urine pH 6 (5-7) 03/06/23 00:04 Ur Specific [place] 1.015 (1.005-1.030) 03/06/23 00:04 Urine Protein 1+ (Negative) H 03/06/23 00:04 Urine Glucose (UA) Norm (Normal) 03/06/23 00:04 Urine Ketones Negative (Negative) 03/06/23 00:04 Urine Blood Neg (Negative) 03/06/23 00:04 Urine Nitrate Negative (Negative) 03/06/23 00:04 Urine Bilirubin Neg (Negative) 03/06/23 00:04 Urine Urobilinogen Neg mg/dL (Negative) 03/06/23 00:04 Ur Leukocyte Esterase Negative (Negative) 03/06/23 00:04 Urine RBC None /hpf (0-2) 03/06/23 00:04 Urine WBC None /hpf (0-5) 03/06/23 00:04 Ur Squamous Epith Cells 0-4 /hpf (0-5) H 03/06/23 00:04 Amorphous Sediment 1+ /hpf 03/06/23 00:04 Urine Bacteria 1+ /hpf (NONE) H 03/06/23 00:04 Urine Mucus 2+ /hpf 03/06/23 00:04 Urine Osmolality 390 mOsm/kg (50-1200) 03/06/23 00:04 Ur Random Sodium 14 mmol/L 03/06/23 00:04 Lyme Ab (Western Blot) <0.90 index 03/05/23 11:49 Coronavirus 229E (PCR) Not detected (NOT DETECT) 03/05/23 14:04 Hepatitis A IgM Ab Non-reactive (Nonreactive) 03/05/23 11:49 Hep Bs Antigen Non-reactive (Nonreactive) 03/05/23 11:49 Hep B Core IgM Ab Non-reactive (Nonreactive) 03/05/23 11:49 Hepatitis C Antibody Non-reactive (Nonreactive) 03/05/23 11:49 SARS-CoV-2 (PCR) Not detected (NOT DETECT) 03/05/23 14:04 Vitals Last Vital Signs Temp 98.0 F 03/10/23 11:22 Pulse 48 L 03/10/23 11:22 Resp 19 H 03/10/23 11:22 BP 166/70 03/10/23 11:22 Pulse Ox 96 03/10/23 11:22 O2 Del Method Room Air 03/10/23 11:22 O2 Flow Rate 2 03/09/23 20:00 Discharge Plan Discharge Patient Disposition: Home Condition: Stable Prescriptions: New doxycycline monohydrate 100 mg Tablet 100 mg PO BID 5 Days Qty: 10 0RF amoxicillin-pot clavulanate 875-125 mg Tablet 1 tab PO BID 5 Days Qty: 10 0RF Continued clonazepam 1 mg tablet 1 - 2 mg PO BEDTIME PRN (Reason: Sleep) venlafaxine 75 mg capsule,extended release 24hr 75 mg PO QAM sumatriptan succinate 50 mg Tablet 50 mg PO Q2H PRN (Reason: Migraine Headache) Rx Instructions: do not exceed 4 doses per 24 hrs cyanocobalamin (vitamin B-12) [Vitamin B-12] 1,000 mcg Tablet 1,000 mcg PO DAILY melatonin 5 mg Tablet 10 mg PO BEDTIME famotidine 20 mg tablet 20 mg PO DAILY betamethasone valerate 0.1 % cream 1 applic TOPICAL BID Discontinued ginkgo biloba 40 mg Tablet 40 mg PO DAILY Rx Instructions: give with meal/snack Discharge Orders: Discharge Order (Routine); Ordered 03/10/23 Ordered By: Temi Reza Other Ambulatory Orders: Complete Blood Count w/Auto (Routine) Timeframe: 2 Days Location: Determined by Patient Ordered By: Temi Reza Comprehensive Metabolic Panel (Routine) Timeframe: 2 Days Facility: [facility] - Location: Lab - Main Lab Ordered By: Temi Reza Referrals: Omid Pak DO [Primary Care Provider] - 03/16/23 8:10 am () Discharge Diet: Usual diet Discharge Activity: Resume usual activity Patient Instructions: Doxycycline (By mouth), Amoxicillin/Clavulanate Potassium (By mouth) (Augmentin, Augmentin..., Urinary Tract Infection in Women (DC), Colitis (ED), Pancytopenia (DC), Opioid Safety Discharge Attestations Time Spent in Discharge Care*: greater than 30 min Quality Metrics Clinical Quality Measures [ No reported AMI, CVA or VTE this stay] Coding Level of Care Code Acute Code for [facility] Fwd Diagnoses Fever R50.9 Pancytopenia D61.818 Hyponatremia E87.1 Generalized weakness R53.1 Elevated liver enzymes R74.8 Diarrhea R19.7
[2023-03-10 17:03] LABS: E. Chaffeensis AB IGG <1:64; E. Chaffeensis AB IGM <1:20
[2023-03-11 16:10] LABS: RMSF IGG DETECTED; RMSF IGM NOT DETECTED
== END 2023-03-10 13:04 | disposition home or self-care (01) | DRG 809 ==
LOC: ER 13:34 → MEDSURG 13:39
PROVIDERS: Admitting Provider Internal Medicine; Emergency Provider Emergency Medicine; PCP Internal Medicine; Visit Provider Student in an Organized Health Care Education/Training Program
DX: D61.818 Other pancytopenia (principal); E87.1 Hypo-osmolality and hyponatremia; R19.7 Diarrhea, unspecified; Z87.440 Personal history of urinary (tract) infections; R74.01 Elevation of levels of liver transaminase levels; E87.6 Hypokalemia; D50.9 Iron deficiency anemia, unspecified; D70.9 Neutropenia, unspecified
CPT/HCPCS: 36415; 80053; 80061; 80074; 80503; 81001; 82274; 82550; 82607; 82728; 83010; 83540; 83550; 83615; 83630; 83690; 83935; 84300; 85014; 85025; 85045; 86618; 86666; 86757; 87493; 87506; 87635; 93005; 96365; 97110; 97116; 97161; 99285; G0378; J0744; J2405; J3490; J7030; J7120; J8597

== ENCOUNTER 2023-03-12 11:30 | Outpatient (CLI) | payer MEDICARE, MEDICAID, SELFPAY ==
[2023-03-12 12:51] LABS: Basophils # 0.1 10^3/uL (0.0-0.1); Basophils % 0.6 %; Eosinophils # 0.1 10^3/uL (0.0-0.8); Eosinophils % 0.8 %; Hematocrit 39.5 % (36-47); Lymphocytes # 9.4 10^3/uL (0.8-4.8); Lymphocytes % 66.4 %; Mean Corpuscular HGB Conc 32.4 g/dL (30-55); Mean Corpuscular Hemoglobin 28.3 pg (27-33); Mean Corpuscular Volume 87.4 fl (85-98); Mean Platelet Volume 9.8 fL (7.4-10.4); Monocytes # 1.7 10^3/uL (0.2-0.9); Monocytes % 11.9 %; Neutrophils % 18.3 %; Nucleated Red Blood Cells % 0 %; Platelet Count 363 10^3/cmm (157-399); Red Blood Count 4.52 10^6/uL (3.85-5.65); Red Cell Distribution Width 14.6 % (12.1-15.1); White Blood Count 14.18 10^3/uL (3.29-11.43)
[2023-03-12 13:12] LABS: Alanine Aminotransferase 50 U/L (0-33); Albumin Level 3.5 g/dL (3.5-5.2); Alkaline Phosphatase 165 U/L (35-105); Anion Gap 11.8 (5-19); Aspartate Amino Transferase 59 U/L (0-32); Blood Urea Nitrogen 6 mg/dL (8-23); Calcium 8.2 mg/dL (8.5-10.5); Carbon Dioxide 30 mmol/L (22-29); Chloride 102 mmol/L (98-107); Globulin 2.7 g/dL (1.3-4.6); Glomerular Filtration Rate 98.8 mL/min (90-130); Glucose 103 mg/dL (65-115); Osmolality Calculated 288 mOsm/kg (285-295); Potassium 3.8 mmol/L (3.5-5.1); Sodium 140 mmol/L (136-145); Total Bilirubin 0.4 mg/dL (0.15-1.2); Total Protein 6.2 g/dL (6.6-8.7)
[2023-03-12 13:21] LABS: Slide Review Slide Review Perform
== END 2023-03-12 11:31 | disposition home or self-care (01) ==
LOC: LAB 11:39
PROVIDERS: PCP Internal Medicine; Visit Provider Student in an Organized Health Care Education/Training Program
DX: D61.818 Other pancytopenia (principal); R50.9 Fever, unspecified
CPT/HCPCS: 80053; 85025

== ENCOUNTER 2023-06-09 12:15 | Emergency (ER) | payer MEDICARE, MEDICAID, SELFPAY ==
[2023-06-09] VITALS (15 sets, daily range): BP systolic 98–179; BP diastolic 58–108; PULSE 81–105; RESP 16–29; O2SAT 93–99
--- NOTE | 2023-06-09 12:18 | CTR_ITS ---
PROCEDURE INFORMATION: Exam: CT Head Without Contrast Exam date and time: 06/09/2023 12:17 PM Age: 73 years old Clinical indication: Stroke-like symptoms; Altered mental status/memory loss and other: RT side weakness; Additional info: Symptoms of acute stroke TECHNIQUE: Imaging protocol: Computed tomography of the head without contrast. Radiation optimization: All CT scans at this facility use at least one of these dose optimization techniques: automated exposure control; mA and/or kV adjustment per patient size (includes targeted exams where dose is matched to clinical indication); or iterative reconstruction. Other technique: STROKE PROTOCOL was implemented. REPORTING DATA: Count of CT and Cardiac NM exams in prior 12 months: This patient has received [address] and 0 known cardiac nuclear medicine studies in the 12 months prior to the current study. COMPARISON: No relevant prior studies available. RADIATION DOSE METRICS: Total DLP (mGy-cm): 1074 FINDINGS: Brain: 4.2 cm by 3.5 cm by 4.7 cm acute hemorrhage near the frontoparietal junction of the left cerebral hemisphere. Small amount of surrounding edema. This is causing local mass effect with effacement of adjacent cerebral sulci. Mass effect is causing 4 mm midline shift to the right. No other intracranial hemorrhage. No other acute infarct. Moderate atrophy of the remainder of the brain.There is ill-defined, fairly symmetric low-density within the cerebral deep white matter bilaterally which is likely the sequela of chronic ischemic change due to small vessel disease. Cerebral ventricles: Mild ventriculomegaly due to brain atrophy. Paranasal sinuses: Visualized sinuses are unremarkable. No fluid levels. Mastoid air cells: Visualized mastoid air cells are well aerated. Bones/joints: Unremarkable. No acute fracture. Soft tissues: Unremarkable. CT/CT head thrombolytic [id number] IMPRESSION: 4.2 cm x 3.5 cm x 4.7 cm acute hemorrhage in the left frontoparietal region with associated mass effect as above. ASSESSMENT: ASPECTS (Marcie Stroke Program Early CT Score) is 10.
--- NOTE | 2023-06-09 12:20 | W.ED.NEUROSD ---
HPI - Neuro Symptoms/Deficit General: Chief Complaint: Neuro Symptoms/Deficit Stated Complaint: Stroke Time Seen by Provider: 06/09/23 12:15 Source: patient, family and EMS Mode of arrival: EMS History of Present Illness: 73-year-old female presents emergency room via EMS she was in her usual state of health morning doing her routine normal activities when suddenly she was unable to stand she was completely flaccid on her right side with a forced left deviated gaze. She is not on any anticoagulants no recent head trauma she is significantly hypertensive in the field of blood pressures in the 250 systolic range. I escorted the patient from the ambulance bay to the CT suite of their did a brief NIH scale which showed significant deficits total stroke score came to 26. CT shows a left frontotemporal bleed patient return to the emergency room confirmed last known well time of 1015 with family which correlated to what EMS had reported. Time: 12:15 Last Observed Normal: 10:15 Associated symptoms: Deny chest pain Review of Systems Const: Denies: fever(s) or chills Card: Denies: chest pain Resp: Denies: dyspnea GI: Denies: abdominal pain : Denies: dysuria, urinary frequency or urinary urgency PFSH ED PFSH: Medical History Psychiatric care Family History Mother Heart disease Stroke Hypertension Hyperlipidemia Denies family history of Colon cancer Ovarian cancer Breast cancer Uterine cancer Thyroid condition Social History Smoking and tobacco/nicotine status: never used tobacco/nicotine Alcohol intake: never Substance/Drug Use: never Lives independently: Yes Household members: significant other NIH stroke score NIHSS: Level Of Consciousness - 1a: 2 Level Of Consciousness Questions - 1b: Neither Correct Level Of Consciousness Commands - 1c: Neither Correct Best Gaze - 2: Forced Deviation Visual [place] - 3: Complete Hemianopia Facial Palsy - 4: Partial Paralysis Motor Arm Right - 5: No Effort Against [place] Motor Arm Left - 5: No Drift Motor Leg Right - 6: No Effort Against [place] Motor Leg Left - 6: No Drift Limb Ataxia - 7: Present In Two Limbs Sensory - 8: Mild To Moderate Loss Best Language - 9: Mild/Moderate Aphasia Dysarthia - 10: Severe Dysarthia Extinction And Inattention - 11: 2 Score: Total Score: 26 Physical Exam Const: COMMON NORMALS: no acute distress GENERAL APPEARANCE: cooperative and comfortable ORIENTATION/CONSCIOUSNESS: Yes awake HENMT: COMMON NORMALS: normocephalic, atraumatic and hearing grossly normal bilaterally HEAD & SCALP: normocephalic and atraumatic Resp: COMMON NORMALS: normal respiratory effort, No retractions, No use of accessory muscles and clear to auscultation bilaterally AUSCULTATION: clear to auscultation bilaterally Cardio: COMMON NORMALS: regular rate, regular rhythm and No murmurs present (Cardio) RATE: regular rate RHYTHM: regular rhythm GI: COMMON NORMALS: Soft to palpation and No hepatosplenomegaly present AUSCULTATION: Yes normoactive bowel sounds PALPATION: Yes Soft to palpation, No Tenderness to palpation present (GI), No Guarding due to palpation present (GI) and Yes No hepatosplenomegaly present Extremity: COMMON NORMALS: normal to inspection, capillary refill normal, no clubbing, cyanosis or edema, no calf tenderness and no pedal edema Course Vital Signs: Vital signs: Vital Signs Pulse Rate 94 06/09/23 14:05 Respiratory Rate 26 H 06/09/23 14:05 Blood Pressure 105/62 06/09/23 14:10 Pulse Oximetry 93 06/09/23 14:05 Oxygen Delivery Me thod Room Air 06/09/23 13:30 MDM - Neuro Symptoms/Deficit Medical Decision Making NIH score of [address] shows acute i patient given labetalol and titrated up on nicardipine Intraparenchymal bleed. To control blood pressure. Discussed with neurology in [place] they will except on any ER to ER transfer Dr. Naidu at [facility] ER will accept on transfer transferred via [facility] ambulance patient stable with blood pressure well controlled on nicardipine. He is also given TXA in the emergency room. Differential Diagnosis Likely subarachnoid hemorrhage and cerebrovascular accident Medical Records I reviewed the patient's medical records. Lab Data I reviewed the patient's lab results. 06/09/23 12:25 06/09/23 12:[address] 06/09/23 12:18 IMPRESSION: 4.2 cm x 3.5 cm x 4.7 cm acute hemorrhage in the left frontoparietal region with associated mass effect as above. ASSESSMENT: ASPECTS (Marcie Stroke Program Early CT Score) is 10. ADDENDUM: 06/09/23 3434 ADDENDUM: Dr. Jack has read this report according to the [facility] operations center, so is aware of the critical findings, and does not desire to have a conversation with me at this time (12:40 p.m. on June 09, 2023). Laboratory Results WBC 8.63 10^3/uL (3.29-11.43) 06/09/23 12:25 RBC 5.28 10^6/uL (3.85-5.65) 06/09/23 12:25 Hgb 14.90 g/dL (11.27-16.99) 06/09/23 12:25 Hct 45.6 % (36-47) 06/09/23 12:25 MCV 86.4 fl (85-98) 06/09/23 12:25 MCH 28.2 pg (27-33) 06/09/23 12:25 MCHC 32.7 g/dL (30-55) 06/09/23 12:25 RDW 13.7 % (12.1-15.1) 06/09/23 12:25 Plt Count 277 10^3/cmm (157-399) 06/09/23 12:25 MPV 10.0 fL (7.4-10.4) 06/09/23 12:25 Neut % (Auto) 27.5 % 06/09/23 12:25 Lymph % (Auto) 66.3 % 06/09/23 12:25 Citrus % (Auto) 4.9 % 06/09/23 12:25 Eos % (Auto) 0.6 % 06/09/23 12:25 Baso % (Auto) 0.6 % 06/09/23 12:25 Neut # (Auto) 2.38 10^3/uL (1.8-7.7) 06/09/23 12:25 Lymph # (Auto) 5.7 10^3/uL (0.8-4.8) H 06/09/23 12:25 Citrus # (Auto) 0.4 10^3/uL (0.2-0.9) 06/09/23 12:25 Eos # (Auto) 0.1 10^3/uL (0.0-0.8) 06/09/23 12:25 Baso # (Auto) 0.1 10^3/uL (0.0-0.1) 06/09/23 12:25 Nucleated RBC % (auto) 0 % 06/09/23 12:25 Nucleated RBCs # 0.0 /100WBC 06/09/23 12:25 PT 12.10 SECONDS (12.1-14.9) 06/09/23 12:25 INR 0.87 (0.8-1.2) 06/09/23 12:25 APTT 23.2 SECONDS (23.9-36.7) L 06/09/23 12:25 Sodium 141 mmol/L (136-145) 06/09/23 12:25 Potassium 4.1 mmol/L (3.5-5.1) 06/09/23 12:25 Chloride 103 mmol/L (98-107) 06/09/23 12:25 Carbon Dioxide 22 mmol/L (22-29) 06/09/23 12:25 Anion Gap 20.1 (5-19) H 06/09/23 12:25 BUN 11 mg/dL (8-23) 06/09/23 12:25 Creatinine 0.7 mg/dL (0.5-0.9) 06/09/23 12:25 GFR Calculation Not Reportable 06/09/23 12:25 Glucose 173 mg/dL (65-115) H 06/09/23 12:25 POC Glucose 152 mg/dL (70-110) H 06/09/23 12:23 Calculated Osmolality 296 mOsm/kg (285-295) H 06/09/23 12:25 Calcium 9.4 mg/dL (8.5-10.5) 06/09/23 12:25 Total Bilirubin 0.4 mg/dL (0.15-1.2) 06/09/23 12:25 AST 22 U/L (0-32) 06/09/23 12:25 ALT 16 U/L (0-33) 06/09/23 12:25 Alkaline Phosphatase 90 U/L (35-105) 06/09/23 12:25 Total Protein 8.0 g/dL (6.6-8.7) 06/09/23 12:25 Albumin 4.5 g/dL (3.5-5.2) 06/09/23 12:25 Globulin 3.5 g/dL (1.3-4.6) 06/09/23 12:25 Urine Color Light yellow (Yellow) 06/09/23 13:26 Urine Appearance Sl hazy (CLEAR) A 06/09/23 13:26 Urine pH 8 (5-7) H 06/09/23 13:26 Ur Specific Colton 1.020 (1.005-1.030) 06/09/23 13:26 Urine Protein Neg (Negative) 06/09/23 13:26 Urine Glucose (UA) Norm (Normal) 06/09/23 13:26 Urine Ketones 1+ (Negative) H 06/09/23 13:26 Urine Blood Neg (Negative) 06/09/23 13:26 Urine Nitrate Negative (Negative) 06/09/23 13:26 Urine Bilirubin Neg (Negative) 06/09/23 13:26 Prot Sulfosalicylic Acd Positive (Negative) 06/09/23 13:26 Urine Urobilinogen Norm mg/dL (Negative) 06/09/23 13:26 Ur Leukocyte Esterase Negative (Negative) 06/09/23 13:26 Urine Opiates Screen Negative ng/mL (Negative) 06/09/23 13:26 Ur Barbiturates Screen Negative ng/mL (Negative) 06/09/23 13:26 Ur Phencyclidine Scrn Negative ng/mL (Negative) 06/09/23 13:26 Ur Amphetamines Screen Negative ng/mL (Negative) 06/09/23 13:26 U Benzodiazepines Scrn Negative ng/mL (Negative) 06/09/23 13:26 Urine Cocaine Screen Negative ng/mL (Negative) 06/09/23 13:26 U Marijuana (THC) Screen Negative ng/mL (Negative) 06/09/23 13:26 All radiology interpretation(s) finalized by discharge Discharge Plan Discharge Patient Disposition: Transfer to ED Clinical Impression: Hemorrhagic stroke, Accelerated hypertension Condition: Stable Prescriptions: No Action magnesium 250 mg tablet 250 mg PO DAILY venlafaxine 150 mg capsule,extended release 24hr 150 mg PO DAILY Qty: 30 1RF Rexulti 2 mg tablet 2 mg PO DAILY Qty: 30 1RF sumatriptan succinate 50 mg Tablet 50 mg PO Q2H PRN (Reason: Migraine Headache) Rx Instructions: do not exceed 4 doses per 24 hrs melatonin 5 mg tablet 5 mg PO BEDTIME clonazepam 1 mg tablet 1 mg PO BID PRN (Reason: Anxiety) famotidine 20 mg tablet 20 mg PO DAILY betamethasone valerate 0.1 % cream 1 applic TOPICAL BID PRN (Reason: rash) Referrals: Omid Pak DO [Primary Care Provider] - Coding Level of Care Code ED Unix Administrator for Stefany Raza
--- NOTE | 2023-06-09 12:24 | ECG_ITS ---
[facility] Test Date: 2023-06-09 Pat Name: Kisha Villalobos Department: Room: Gender: Female Makeup Editor: : 1950 Requested By: Ras Adame Order Number: [id number] Marybel MD: Judson Martinez M.D. Measurements Intervals [place] Rate: 95 P: 74 AK: 146 QRS: 58 QRSD: 113 T: 53 QT: 396 QTc: 498 Interpretive Statements SINUS RHYTHM POSSIBLE LEFT ATRIAL ENLARGEMENT [-0.1mV P-WAVE IN V1/V2] INCOMPLETE RIGHT BUNDLE BRANCH BLOCK [90+ ms QRS DURATION, TERMINAL R IN V1/V2, 40+ ms Borderline ECG Electronically Signed On 06-09-2023 14:23:13 FINANCE MGR by Judson Martinez M.D. [id number]
[2023-06-09 12:30] LABS: Basophils # 0.1 10^3/uL (0.0-0.1); Basophils % 0.6 %; Eosinophils # 0.1 10^3/uL (0.0-0.8); Eosinophils % 0.6 %; Hematocrit 45.6 % (36-47); Lymphocytes # 5.7 10^3/uL (0.8-4.8); Lymphocytes % 66.3 %; Mean Corpuscular HGB Conc 32.7 g/dL (30-55); Mean Corpuscular Hemoglobin 28.2 pg (27-33); Mean Corpuscular Volume 86.4 fl (85-98); Monocytes # 0.4 10^3/uL (0.2-0.9); Monocytes % 4.9 %; Neutrophils # 2.38 10^3/uL (1.8-7.7); Neutrophils % 27.5 %; Nucleated Red Blood Cells % 0 %; Platelet Count 277 10^3/cmm (157-399); Red Blood Count 5.28 10^6/uL (3.85-5.65); Red Cell Distribution Width 13.7 % (12.1-15.1); White Blood Count 8.63 10^3/uL (3.29-11.43)
[2023-06-09] MEDS: labetalol 5 mg/mL SDV 20mL 10 MG IVP (12:32)
[2023-06-09] MEDS: nicardipine 20 MG/200 ML PREMIX 100 MG IV (12:32)
[2023-06-09 12:41] LABS: INR 0.87 (0.8-1.2)
[2023-06-09 12:42] LABS: Partial Thromboplastin Time 23.2 SECONDS (23.9-36.7)
--- NOTE | 2023-06-09 12:45 | PC.PHAR ---
medications entered are from what ext med history shows-waiting for family to verify meds
[2023-06-09 12:52] LABS: Alanine Aminotransferase 16 U/L (0-33); Albumin Level 4.5 g/dL (3.5-5.2); Alkaline Phosphatase 90 U/L (35-105); Anion Gap 20.1 (5-19); Aspartate Amino Transferase 22 U/L (0-32); Blood Urea Nitrogen 11 mg/dL (8-23); Calcium 9.4 mg/dL (8.5-10.5); Carbon Dioxide 22 mmol/L (22-29); Chloride 103 mmol/L (98-107); Creatinine Clr Calc Pharmacy 49.5246; Globulin 3.5 g/dL (1.3-4.6); Glucose 173 mg/dL (65-115); Osmolality Calculated 296 mOsm/kg (285-295); Potassium 4.1 mmol/L (3.5-5.1); Sodium 141 mmol/L (136-145); Total Bilirubin 0.4 mg/dL (0.15-1.2)
--- NOTE | 2023-06-09 12:52 | PC.NURSE ---
CARDENE STARTED AT 10MG/ML PER DR. THORNTON. NO FURTHER ORDERS AT THIS TIME
[2023-06-09] MEDS: tranexamic acid 1,000 MG/100 ML PREMIX 600 MG IV (13:03)
[2023-06-09 13:04] LABS: Slide Review Slide Review Perform
[2023-06-09] MEDS: LORazepam 2 mg/mL INJ 1 mL IVP (13:12)
[2023-06-09] MEDS: ondansetron 2 mg/ML SDV 2 mL 4 MG IVP (13:12)
[2023-06-09 13:35] LABS: Add Urine Microscopic? NO; Charge for UA Resulting for Rev
[2023-06-09 13:48] LABS: Amphetamines Screen Urine Negative (Negative); Barbiturates Screen Urine Negative (Negative); Benzodiazepines Screen Urine Negative (Negative); Cocaine Screen Urine Negative (Negative); Opiate Screen Urine Negative (Negative); PCP Screen Urine Negative (Negative); THC Screen Urine Negative (Negative)
[2023-06-09 14:03] LABS: Bilirubin Urine Neg (Negative); Blood Urine Neg (Negative); Glucose Urine UA Norm (Normal); Ketones Urine 1+ (Negative); Leukocyte Esterase Urine Negative (Negative); Nitrate Urine Negative (Negative); Protein Urine Neg (Negative); Sulfosalicylic Acid Urine Positive (Negative); Urine Appearance SL Hazy (CLEAR); Urine Color Light yellow (Yellow); Urobilinogen Urine Norm (Negative); pH Urine 8 (5-7)
[2023-06-09 14:15] LABS: Glucose Point of Care 152 mg/dL (70-110)
== END 2023-06-09 14:20 ==
PROVIDERS: Emergency Provider Family Medicine; PCP Internal Medicine
DX: I62.9 Nontraumatic intracranial hemorrhage, unspecified (principal); I10 Essential (primary) hypertension
CPT/HCPCS: 36416; 51702; 70450; 80053; 80306; 81003; 82962; 85025; 85610; 85730; 93005; 93010; 96365; 96375; 99291; J2060; J2405; J3490

== ENCOUNTER 2023-07-19 11:25 | Emergency (ER) | payer MEDICARE, MEDICAID, SELFPAY ==
[2023-07-19 12:04] VITALS: BP 150/88; PULSE 122; RESP 22; TEMP 36.4; O2SAT 94
[2023-07-19] MEDS: hyDROXYzine 25 mg Capsule PO (14:38)
--- NOTE | 2023-07-19 14:58 | W.ED.ANXIETY ---
HPI - Anxiety General: Chief Complaint: Anxiety Stated Complaint: stressed Time Seen by Provider: 07/19/23 13:26 History of Present Illness: Kisha morgan is a 73-year-old female that presents to the emergency department with reports of anxiety. Patient reports that she has had chronic anxiety and has been treated for 20 years with clonazepam. Patient recently had a hypertensive hemorrhagic stroke. Was treated at [facility] in [place] and transferred to a fdc facility/rehab for ongoing management. She was discharged yesterday from that facility without an updated clonazepam prescription. When she contacted that office today she tried to get a renewal but they did not have anybody in house that would/could write for it. Patient is also taking venlafaxine and Seroquel. Patient denies any thoughts of harming herself or others Patient denies any chest pain, shortness of breath, headache/migraine, fevers, chills. Review of Systems General: Reports: 10 or more systems reviewed and unremarkable except in HPI and below PFSH ED PFSH: Medical History Psychiatric care Family History Mother Heart disease Stroke Hypertension Hyperlipidemia Denies family history of Colon cancer Ovarian cancer Breast cancer Uterine cancer Thyroid condition Social History Smoking and tobacco/nicotine status: never used tobacco/nicotine Alcohol intake: never Substance/Drug Use: never Lives independently: Yes Household members: significant other Physical Exam Const: COMMON NORMALS: no acute distress and patient oriented x3 GENERAL APPEARANCE: cooperative and comfortable ORIENTATION/CONSCIOUSNESS: Yes awake HENMT: COMMON NORMALS: normocephalic, atraumatic and hearing grossly normal bilaterally HEAD & SCALP: normocephalic and atraumatic Resp: COMMON NORMALS: normal respiratory effort, No retractions, No use of accessory muscles and clear to auscultation bilaterally AUSCULTATION: clear to auscultation bilaterally Cardio: COMMON NORMALS: regular rate, regular rhythm and No murmurs present (Cardio) RATE: regular rate RHYTHM: regular rhythm GI: COMMON NORMALS: Soft to palpation and No hepatosplenomegaly present AUSCULTATION: Yes normoactive bowel sounds PALPATION: Yes Soft to palpation, No Tenderness to palpation present (GI), No Guarding due to palpation present (GI) and Yes No hepatosplenomegaly present Extremity: COMMON NORMALS: normal to inspection, capillary refill normal, no clubbing, cyanosis or edema, no calf tenderness and no pedal edema Neuro: COMMON NORMALS: patient oriented x3 and CN's II-XII intact bilaterally Course Vital Signs: Vital signs: Vital Signs Temperature 97.5 F L 07/19/23 12:04 Pulse Rate 122 H 07/19/23 12:04 Respiratory Rate 22 H 07/19/23 12:04 Blood Pressure 150/88 07/19/23 12:04 Pulse Oximetry 94 07/19/23 12:04 Oxygen Delivery Me thod Room Air 07/19/23 12:04 MDM - Anxiety Medical Decision Making Patient was evaluated in the emergency department for prescription refill. Patient is out of her clonazepam and was discharged without a prescription from the recent admission. We were able to confirm that she was to be discharged from [facility] on clonazepam, her home medication but was discharged without it. I have reviewed case with Dr. Gaitan who is agreed to write a short course prescription until she can make it to her follow-up appointment with a new PCP on August 05. All questions answered No radiology studies performed this visit Discharge Plan Discharge Patient Disposition: Home Clinical Impression: Anxiety Condition: Stable Prescriptions: New clonazepam 1 mg tablet 1 mg PO BID Qty: 35 0RF No Action venlafaxine 150 mg capsule,extended release 24hr 150 mg PO DAILY Qty: 30 1RF sumatriptan succinate 50 mg Tablet 50 mg PO Q2H PRN (Reason: Migraine Headache) Rx Instructions: do not exceed 4 doses per 24 hrs melatonin 5 mg tablet 5 mg PO BEDTIME clonazepam 1 mg tablet 1 mg PO BID PRN (Reason: Anxiety) quetiapine 25 mg tablet 37.5 mg PO DAILY tizanidine 2 mg tablet 2 mg PO TID amlodipine 10 mg tablet 10 mg PO DAILY lisinopril 40 mg tablet 40 mg PO DAILY betamethasone valerate 0.1 % cream 1 applic TOPICAL BID PRN (Reason: rash) Discharge Orders: Discharge ED (Routine); Ordered 07/19/23 Ordered By: Robby Browne Discharge Diet: Advance as tolerated Discharge Activity: Resume usual activity Patient Instructions: Opioid Safety, Anxiety (ED), Clonazepam (By mouth) Activity Restrictions/Additional Instructions: Please follow-up with your primary care doctor as planned Return to the emergency department for new concerning or worsening symptoms Coding Level of Care Code ED Lead Tank Mechanic for Stefany Raza
== END 2023-07-19 15:27 | disposition home or self-care (01) ==
PROVIDERS: Emergency Provider Nurse Practitioner
DX: F41.9 Anxiety disorder, unspecified (principal)
CPT/HCPCS: 99283

== ENCOUNTER 2023-09-18 12:36 | Outpatient (CLI) | payer MEDICARE, MEDICAID, SELFPAY ==
--- NOTE | 2023-09-18 12:44 | XR_ITS ---
WS: [id number] Exam: XR chest 2V* [id number] Date/Time of Exam: 09/18/2023 1:13 PM Reason For Exam: POSTVIRAL COUGH Comparison 09/17/2011. Lungs are clear and fully expanded. Normal cardiomediastinal silhouette and regional bony elements. N o pleural effusions. Mild spondylosis of the T-spine. IMPRESSION: 1. No acute cardiopulmonary finding.
== END 2023-09-18 12:37 | disposition home or self-care (01) ==
LOC: RAD 12:40
PROVIDERS: PCP Family Medicine; Visit Provider Nurse Practitioner Family
DX: R05.8 Other specified cough (principal)
CPT/HCPCS: 71046

== ENCOUNTER → 2023-10-14 15:07 | Outpatient (BNVA) | payer MEDICARE, MEDICAID, SELFPAY | PROVIDERS: PCP Family Medicine; Visit Provider Internal Medicine Cardiovascular Disease | DX: R07.9 Chest pain, unspecified (principal) | CPT/HCPCS: 93005; 99204 ==

== ENCOUNTER 2023-11-04 08:44 | Outpatient (CLI) | payer MEDICARE, MEDICAID, SELFPAY ==
[2023-11-04 09:26] VITALS: BMI 23.8
--- NOTE | 2023-11-04 09:27 | ECG_ITS ---
[facility] Test Date: 2023-11-04 Pat Name: Kisha Villalobos Department: Room: Gender: Female Acid Conditioning Worker: Myrna Saleem : 1950 Requested By: Sandei Martínez Order Number: [id number] Reading MD: Sandie Martínez M.D. Interpretive Statements NAME OF STUDY: LEXISCAN SESTAMIBI STRESS TEST INDICATION: Abnormal EKG , PROCEDURE: At the baseline, the EKG revealed normal sinus rhythm with a right bundle branch block pattern. Some nonspecific T wave changes.. The baseline heart was 120/68 bpm with a blood pressue of 80 mm of Hg Lexiscan was infused over a period of 20 seconds. A total of 0.4 milligrams of Lexiscan was infused. The stress phase was continued for a total of 5 minutes. Heart rate at the end of the stress phase was 105 bpm with a blood pressure 130/72 mm of Hg. The EKG at the peak infusion revealed no significant changes. Sestamibi was injected 20 seconds after the Lexiscan infusion. Heart rate at the end of the recovery phase was 96 bpm with a blood pressure of 119/80 mm of Hg. CONCLUSION: 1. No significant EKG changes with the LexiScan infusion 2. No LexiScan induced chest pain or cardiac arrhythmia 3. Normal blood pressure and heart rate response 4. Sestamibi/sestamibi perfusion scan pending; see separate report. Electronically Signed On 11-16-2023 13:26:59 CDT by Sandie Martínez M.D. [id number]
--- NOTE | 2023-11-04 09:27 | NMCV_ITS ---
NM robby perf SPECT r/s* [id number] Kisha Villalobos Age: 73 Gender: F : 1950 Exam Date: 11/04/2023 10:06 Ordering Phys: Sandie Martínez MD ([email or web address]) Technologist: DANDRE Monsivais Exam Location: [facility] Indications: CORONARY ANGIOPLASTY STATUS STRESS TEST Please see separate stress test report in [facility] for full findings IMAGE PROTOCOL Rest/Stress 1 Lexiscan Day Radiopharmaceutical Dose (mCi) Administration Site Administered by Rest: Tc-99m 10.3 IV DANDRE Wilkins Sestamibi Stress:Tc-99m 32.4 IV DANDRE Wilkins Sestamibi Rest: 04-Nov-2023 60 Discovery 630 Stress: 04-Nov-2023 30 Discovery 630 0.4mg Lexiscan. Images obtained in supine and prone position. SPECT RESULTS Technical Quality: Excellent Raw Data Analysis: Normal Image Corrections: No attenuation or motion correction applied Summed Stress Score: 2 Summed Rest Score: 3 Summed Difference Score: 1 PERFUSION FINDINGS Small area of slightly decreased tracer uptake was noted in the apical inferior and apical lateral regions. Subtle area of reversibility was noted of the apical lateral region FUNCTIONAL RESULTS (calculated via Gated SPECT) Stress Image LV EF (%): 85 Stress EDV (mL):54 TID: 0.84 Stress ESV (mL):8 FUNCTIONAL FINDINGS: LV wall motion analysis revealing no gross wall motion abnormalities. IMPRESSIONS 1. Myocardial perfusion imaging revealing small area of slightly decreased tracer uptake in the apical inferior and apical lateral region, with a subtle reversibility with the supine imaging. Because of the inconsistency with the prone imaging, most likely this is artifactual. 2. Normal LV ejection fraction of 85%. 3. LV wall motion analysis revealing no gross wall motion abnormalities. 4. Normal LV volume No similar previous studies are available for comparison Dr Sandie Martínez MD [facility] (Electronically Signed) Final Date: 04 November 2023 14:03 S
[2023-11-04] MEDS: regadenoson 0.4 Mg/5 ml Syringe 0.400000000000000022 MG IVP (10:58)
[2023-11-04 11:06] VITALS: BP 119/80; PULSE 96
== END 2023-11-04 08:45 | disposition home or self-care (01) ==
LOC: CDL 08:47
PROVIDERS: PCP Family Medicine; Visit Provider Internal Medicine Cardiovascular Disease
DX: R94.31 Abnormal electrocardiogram [ECG] [EKG] (principal)
CPT/HCPCS: 36415; 78452; 93017; 96374; A9500; J2785

== ENCOUNTER 2023-11-16 09:23 | Outpatient (CLI) | payer MEDICARE, MEDICAID, SELFPAY ==
--- NOTE | 2023-11-16 09:30 | MR_ITS ---
WS: [id number] MRI BRAIN WITH AND WITHOUT CONTRAST HISTORY: I63.9 - Cerebral infarction, unspecified COMPARISON: 05/07/2007, CT head 06/09/2023 TECHNIQUE: Multiplanar imaging performed through the brain with MultiHance 11 ml's IV. No acute diffusion abnormalities. Remote hemorrhagic infarct in the posterior LEFT frontal lobe is id entified. Acute infarct was described in 06/09/2023 in this location. There is extensive susceptibility artifact throughout the brain. Greatest involving the RIGHT brain i n a subcortical distribution. These findings are new since 2006. Otherwise moderate small vessel ischemic disease throughout the periventricular and supraventricular white matter. Mild prior ischemia LEFT marychuy. Clivus and pituitary gland are normal. Visualized posterior fossa and brainstem are also normal. Small amount of increased T1 signal in the region of the posterior LEFT frontal infarct. Questionable small amount of enhancement. There is slightly greater increased signal on the postcontrast images a s compared to the noncontrast T1 sequence. [id number] and probably related to the prior infarct. Dural venous sinuses are normal. Paranasal sinuses: Well aerated with no significant disease. Mastoid air cells: Normal. Calvarium and scalp: Normal. MR/MR head wo/w con [id number] IMPRESSION: 1. Resolving hemorrhagic infarct in the posterior LEFT frontal lobe as compare d to 06/09/2023. There is slight enhancement in the central infarct but non-mas s-like. Additional 3-month postcontrast CT follow-up of the brain with would be beneficial to exclude an underlying mass. Expect the subtle area of enhancemen t to continue to resolve. 2. Additional numerous susceptibility infarcts consistent with hemosiderin not ed bilaterally but greatest throughout the RIGHT brain. Consider amyloid angiop athy. 3. Moderate small vessel ischemic disease.
[2023-11-16] MEDS: gadobenate dimeglumine 20 mL vial IV (10:14)
== END 2023-11-16 09:24 | disposition home or self-care (01) ==
LOC: RAD 09:25
PROVIDERS: PCP Family Medicine; Visit Provider Psychiatry & Neurology Neurology
DX: I63.9 Cerebral infarction, unspecified (principal); I67.89 Other cerebrovascular disease
CPT/HCPCS: 70553; A9577

== ENCOUNTER 2023-11-19 12:49 | Outpatient (RCR) | payer MEDICARE, MEDICAID, SELFPAY | END 2023-12-18 23:59 | disposition home or self-care (01) | LOC: SOT 12:49 | PROVIDERS: PCP Family Medicine; Visit Provider Family Medicine | DX: I69.331 Monoplegia of upper limb following cerebral infarction affecting right dominant side (principal) | CPT/HCPCS: 97110; 97112; 97167; 97530 ==

== ENCOUNTER 2023-12-03 14:06 | Outpatient (CLI) | payer MEDICARE, MEDICAID, SELFPAY ==
[2023-12-03] MEDS: gadobenate dimeglumine 20 mL vial IV (15:29)
--- NOTE | 2023-12-03 16:00 | MR_ITS ---
WS: [id number] MRA CAROTID ARTERIES HISTORY: I63.9 - Cerebral infarction, unspecified COMPARISON: None available. TECHNIQUE: MRA is performed with intravenous gadolinium. MIP and source images are reviewed. Right: Normal caliber cervical carotid artery. No stenosis or significant plaque at the bifurcation. Left: Normal caliber cervical carotid artery. No plaque or significant stenosis at the bifurcation. B ovine arch. Subclavian Arteries: Normal caliber with no obstruction. Vertebral Arteries: Both vertebral arteries are patent. Very small caliber distal RIGHT vertebral art kimmy. MR/MR angio neck w con* [id number] IMPRESSION: No significant carotid atherosclerosis or occlusion.
--- NOTE | 2023-12-03 16:45 | MR_ITS ---
WS: [id number] MRA ANGIOGRAPHY [place] HISTORY: I63.9 - Cerebral infarction, unspecified COMPARISON: None available. TECHNIQUE: 3-D MR angiography is performed of the [place]. All images are reviewed including source images. Small caliber distal RIGHT vertebral artery. Both arteries are patent. Basilar artery is normal. Both posterior cerebral arteries are identified. Hypoplastic LEFT P1 segment. Dominant LEFT posterior com municating artery. Intracranial portion of the internal carotid arteries are normal course and caliber. No significant a therosclerosis, stenosis or aneurysm identified. Middle and anterior cerebral arteries are both paten t with no significant disease. Anterior communicating artery is also normal. MR/MR angio head wo con [id number] IMPRESSION: No significant stenosis within the [place]. No occlusions. No aneurysm in the [place]. Mildly hypoplastic distal RIGHT vertebral artery and the RIGHT P1 segment.
== END 2023-12-03 14:07 | disposition home or self-care (01) ==
LOC: RAD 14:06
PROVIDERS: PCP Family Medicine; Visit Provider Psychiatry & Neurology Neurology
DX: I63.9 Cerebral infarction, unspecified (principal); I61.9 Nontraumatic intracerebral hemorrhage, unspecified
CPT/HCPCS: 70544; 70548; A9577

== ENCOUNTER 2023-12-19 06:00 | Outpatient (RCR) | payer MEDICARE, MEDICAID, SELFPAY | END 2024-01-17 23:59 | disposition home or self-care (01) | LOC: SOT 06:00 | PROVIDERS: PCP Nurse Practitioner Family; Visit Provider Family Medicine | DX: I63.9 Cerebral infarction, unspecified (principal) | CPT/HCPCS: 97110; 97112; 97530; L3924 ==

== ENCOUNTER 2023-12-23 15:07 | Outpatient (CLI) | payer MEDICARE, OTHER, SELFPAY ==
--- NOTE | 2023-12-23 15:25 | XR_ITS ---
WS: [id number] XR knee RT 4V [id number] REASON FOR EXAM: R KNEE PAIN FINDINGS: No fracture or focal bone lesion. Medial and lateral knee joint space are intact and relatively well maintained. There is minimal subch ondral sclerosis in both medial and lateral joint spaces with small osteophytosis in the medial knee joint space. The patellofemoral joint space is well-maintained. There is mild subchondral sclerosis and minimal os teophytosis of the patella. XR/XR knee RT 4V 00620 IMPRESSION: Minimal change of osteoarthritis.
== END 2023-12-23 15:08 | disposition home or self-care (01) ==
LOC: RAD 15:09
PROVIDERS: PCP Nurse Practitioner Family; Visit Provider Nurse Practitioner Family
DX: M25.861 Other specified joint disorders, right knee (principal); M25.761 Osteophyte, right knee
CPT/HCPCS: 73564

== ENCOUNTER 2024-01-05 09:48 | Outpatient (RCR) | payer MEDICARE, MEDICAID, SELFPAY | END 2024-01-17 23:59 | disposition home or self-care (01) | LOC: SPT 09:48 | PROVIDERS: PCP Nurse Practitioner Family; Visit Provider Family Medicine | DX: I63.9 Cerebral infarction, unspecified (principal) | CPT/HCPCS: 97112; 97162 ==

== ENCOUNTER 2024-01-06 12:02 | Emergency (ER) | payer MEDICARE, MEDICAID, SELFPAY ==
[2024-01-06] VITALS (7 sets, daily range): BP systolic 104–129; BP diastolic 69–77; PULSE 70–97; RESP 16–22; TEMP 37.1; O2SAT 93–99
[2024-01-06 12:52] LABS: Basophils # 0.1 10^3/uL (0.0-0.1); Basophils % 0.9 %; Eosinophils # 0.1 10^3/uL (0.0-0.8); Eosinophils % 1.2 %; Hematocrit 40.9 % (36-47); Lymphocytes # 3.4 10^3/uL (0.8-4.8); Lymphocytes % 58.4 %; Mean Corpuscular Volume 87.8 fl (85-98); Mean Platelet Volume 9.3 fL (7.4-10.4); Monocytes # 0.4 10^3/uL (0.2-0.9); Neutrophils # 1.93 10^3/uL (1.8-7.7); Neutrophils % 33.3 %; Nucleated Red Blood Cells % 0 %; Platelet Count 287 10^3/cmm (157-399); Red Blood Count 4.66 10^6/uL (3.85-5.65); Red Cell Distribution Width 13.8 % (12.1-15.1)
[2024-01-06 13:07] LABS: Alanine Aminotransferase 19 U/L (0-33); Albumin Level 4.1 g/dL (3.5-5.2); Alkaline Phosphatase 94 U/L (35-105); Anion Gap 15.9 (5-19); Aspartate Amino Transferase 23 U/L (0-32); Blood Urea Nitrogen 12 mg/dL (8-23); Calcium 8.8 mg/dL (8.5-10.5); Carbon Dioxide 26 mmol/L (22-29); Chloride 102 mmol/L (98-107); Creatinine Clr Calc Pharmacy 53.0347; Glucose 126 mg/dL (65-115); Lipase 31 U/L (13-60); Osmolality Calculated 291 mOsm/kg (285-295); Potassium 3.9 mmol/L (3.5-5.1); Sodium 140 mmol/L (136-145); Total Bilirubin 0.3 mg/dL (0.15-1.2); Total Protein 7.1 g/dL (6.6-8.7)
--- NOTE | 2024-01-06 14:19 | W.ED.GENADLT ---
HPI - General Adult General: Chief complaint: Urogenital-Female Stated complaint: pelvic pain, weakness Time Seen by Provider: 01/06/24 13:58 Source: patient Mode of arrival: ambulatory Limitations: no limitations History of Present Illness: Patient is a 73-year-old female presents to ED today with 2 separate complaints. First of all she has a complaint of some minor lower pelvic discomfort that she has had over the past week or so. She states she was seen at [facility] and had a UA ran and was told it was slightly suspicious for infection but they were going to hold off on antibiotics and await culture. She states she has never heard from them. Patient is not having any dysuria, frequency, or urgency. She is not having any vaginal bleeding or vaginal discharge. She actually states that at time of arrival her pain has improved. Her other complaint is possible medication side effects. Patient states through [facility] she has recently tapered off of her venlafaxine and has been started on desvenlafaxine. She states since then she has had some intermittent dizziness. She is planning to talk to her [facility] provider in regards to this symptom. Dizziness seems to come and go. She is ambulatory here without difficulty or assistance. Onset (ago): day(s) Relieving factors: none Exacerbating factors: none Associated symptoms: Deny chest pain, confusion, dyspnea, headache(s), malaise, nausea, rash or vomiting Treatments prior to arrival: none Review of Systems Const: Denies: fever(s), chills, body aches, fatigue or malaise Card: Denies: chest pain Resp: Denies: dyspnea GI: Denies: nausea, vomiting, diarrhea, change in bowel habits, hematochezia or melena : Reports: pelvic pain; Denies: flank pain, difficulty voiding, dysuria, urinary frequency, urinary urgency, urinary hesitancy, hematuria, vaginal odor, vaginal bleeding or vaginal discharge Musc: Denies: neck pain, back pain, extremity pain or joint pain Skin/Breast: Denies: rash Neuro: Reports: dizziness; Denies: headache(s), numbness in extremities, weakness in extremities, sensory changes, lack of coordination, difficulty walking, frequent falls, confusion, behavioral changes, Slurred speech present, difficulty communicating thoughts or seizure-like activity [facility] ED PFSH: Medical History Psychiatric care Family History Mother Heart disease Stroke Hypertension Hyperlipidemia Denies family history of Colon cancer Ovarian cancer Breast cancer Uterine cancer Thyroid disease Social History Smoking and tobacco/nicotine status: never used tobacco/nicotine Alcohol intake: never Substance/Drug Use: never Lives independently: Yes Household members: significant other Physical Exam Const: COMMON NORMALS: no acute distress, average body habitus, patient oriented x3, no limitations, healthy appearing, alert and well nourished GENERAL APPEARANCE: cooperative ORIENTATION/CONSCIOUSNESS: Yes awake, Yes oriented to person, Yes oriented to place and Yes oriented to time HENMT: COMMON NORMALS: normocephalic, atraumatic and TM's normal bilaterally HEAD & SCALP: normal to inspection, normocephalic and atraumatic FACE & SINUS: normal facial exam and face symmetric TYMPANIC MEMBRANE: TM's normal bilaterally Eye: COMMON NORMALS: Equal, round and reactive pupils present and EOMs intact bilaterally GENERAL EYE: appearance normal, both eyes and all related structures and normal light reflex PUPIL: Yes Equal, round and reactive pupils present DIRECT OPHTHALMOSCOPY: Yes normal light reflex Neck/C-Spine: COMMON NORMALS: full ROM, no lymphadenopathy and no meningeal signs Resp: COMMON NORMALS: normal respiratory effort and clear to auscultation bilaterally AUSCULTATION: clear to auscultation bilaterally Cardio: COMMON NORMALS: regular rate and regular rhythm RATE: regular rate RHYTHM: regular rhythm GI: COMMON NORMALS: Normal to inspection, nondistended, normoactive bowel sounds present, Soft to palpation, non-tender, No hepatosplenomegaly present and no masses INSPECTION: Yes normal to inspection AUSCULTATION: Yes normoactive bowel sounds PALPATION: Yes Soft to palpation and Yes No hepatosplenomegaly present : COMMON NORMALS: Yes no CVA tenderness BLADDER/KIDNEY EXAM: Yes no CVA tenderness Back/Pelvis: COMMON NORMALS: no CVA tenderness Extremity: GENERAL: Yes normal exam except as noted Neuro: DRAGAN COMA SCALE: document GCS findings Dragan coma scale eye opening: Spontaneous Dragan coma scale verbal response: Orientated Dragan coma scale motor response: Obey commands [place] coma scale total score: 15 COMMON NORMALS: patient oriented x3, CN's II-XII intact bilaterally, moves all extremities, no focal motor deficits, no sensory deficits noted and gait normal SENSORIUM/ORIENTATION: Yes alert, Yes oriented to person, Yes oriented to place and Yes oriented to time MENINGEAL SIGNS: Yes no meningeal signs Skin: COMMON NORMALS: no rashes or lesions noted GENERAL SKIN EXAM: no rashes or lesions noted Course Vital Signs: Vital signs: Vital Signs Temperature 98.7 F 01/06/24 12:10 Pulse Rate 73 01/06/24 15:20 Respiratory Rate 16 01/06/24 15:20 Blood Pressure 108/73 01/06/24 15:20 Pulse Oximetry 94 01/06/24 15:20 Oxygen Delivery Me thod Room Air 01/06/24 15:20 MDM - General Adult Medical Decision Making Patient states at time of presentation her pelvic pain is pretty well subsided. She defers pelvic exam today. She states she will follow-up with her OB provider Dr. Lam through [facility]. Her blood work and UA today are completely unremarkable. Common side effects of desvenlafaxine is vertigo and dizziness. She has no focal deficits. Nothing to suggest posterior circulation involvement. Patient is cleared from an emergency standpoint. Medical Records I reviewed the patient's medical records. Lab Data I reviewed the patient's lab results. 01/06/24 12:42 01/06/24 12:42 Laboratory Results WBC 5.80 10^3/uL (3.29-11.43) 01/06/24 12:42 RBC 4.66 10^6/uL (3.85-5.65) 01/06/24 12:42 Hgb 13.50 g/dL (11.27-16.99) 01/06/24 12:42 Hct 40.9 % (36-47) 01/06/24 12:42 MCV 87.8 fl (85-98) 01/06/24 12:42 MCH 29.0 pg (27-33) 01/06/24 12:42 MCHC 33.0 g/dL (30-55) 01/06/24 12:42 RDW 13.8 % (12.1-15.1) 01/06/24 12:42 Plt Count 287 10^3/cmm (157-399) 01/06/24 12:42 MPV 9.3 fL (7.4-10.4) 01/06/24 12:42 Neut % (Auto) 33.3 % 01/06/24 12:42 Lymph % (Auto) 58.4 % 01/06/24 12:42 [place] % (Auto) 6.0 % 01/06/24 12:42 Eos % (Auto) 1.2 % 01/06/24 12:42 Baso % (Auto) 0.9 % 01/06/24 12:42 Neut # (Auto) 1.93 10^3/uL (1.8-7.7) 01/06/24 12:42 Lymph # (Auto) 3.4 10^3/uL (0.8-4.8) 01/06/24 12:42 [place] # (Auto) 0.4 10^3/uL (0.2-0.9) 01/06/24 12:42 Eos # (Auto) 0.1 10^3/uL (0.0-0.8) 01/06/24 12:42 Baso # (Auto) 0.1 10^3/uL (0.0-0.1) 01/06/24 12:42 Nucleated RBC % (auto) 0 % 01/06/24 12:42 Nucleated RBCs # 0.0 /100WBC 01/06/24 12:42 Sodium 140 mmol/L (136-145) 01/06/24 12:42 Potassium 3.9 mmol/L (3.5-5.1) 01/06/24 12:42 Chloride 102 mmol/L (98-107) 01/06/24 12:42 Carbon Dioxide 26 mmol/L (22-29) 01/06/24 12:42 Anion Gap 15.9 (5-19) 01/06/24 12:42 BUN 12 mg/dL (8-23) 01/06/24 12:42 Creatinine 0.6 mg/dL (0.5-0.9) 01/06/24 12:42 GFR Calculation Not Reportable 01/06/24 12:42 Glucose 126 mg/dL (65-115) H 01/06/24 12:42 Calculated Osmolality 291 mOsm/kg (285-295) 01/06/24 12:42 Calcium 8.8 mg/dL (8.5-10.5) 01/06/24 12:42 Total Bilirubin 0.3 mg/dL (0.15-1.2) 01/06/24 12:42 AST 23 U/L (0-32) 01/06/24 12:42 ALT 19 U/L (0-33) 01/06/24 12:42 Alkaline Phosphatase 94 U/L (35-105) 01/06/24 12:42 Total Protein 7.1 g/dL (6.6-8.7) 01/06/24 12:42 Albumin 4.1 g/dL (3.5-5.2) 01/06/24 12:42 Globulin 3.0 g/dL (1.3-4.6) 01/06/24 12:42 Lipase 31 U/L (13-60) 01/06/24 12:42 Urine Color Yellow (Yellow) 01/06/24 13:43 Urine Appearance Slightly cloudy (CLEAR) 01/06/24 13:43 Urine pH 6 (5-7) 01/06/24 13:43 Ur Specific [place] 1.010 (1.005-1.030) 01/06/24 13:43 Urine Protein Neg (Negative) 01/06/24 13:43 Urine Glucose (UA) Norm (Normal) 01/06/24 13:43 Urine Ketones Negative (Negative) 01/06/24 13:43 Urine Blood Neg (Negative) 01/06/24 13:43 Urine Nitrate Negative (Negative) 01/06/24 13:43 Urine Bilirubin Neg (Negative) 01/06/24 13:43 Urine Urobilinogen Norm mg/dL (Negative) 01/06/24 13:43 Ur Leukocyte Esterase Negative (Negative) 01/06/24 13:43 Urine RBC None /hpf (0-2) 01/06/24 13:43 Urine WBC None /hpf (0-5) 01/06/24 13:43 Ur Squamous Epith Cells 0-4 /hpf (0-5) H 01/06/24 13:43 Amorphous Sediment Not Reportable 01/06/24 13:43 Urine Bacteria Trace /hpf (NONE) 01/06/24 13:43 No radiology studies performed this visit Discharge Plan Discharge Patient Disposition: Home Clinical Impression: Pain pelvic Condition: Stable Prescriptions: No Action losartan 100 mg tablet 100 mg PO quetiapine 50 mg tablet 25 mg PO DAILY atorvastatin 40 mg tablet 40 mg PO DAILY Qty: 90 3RF venlafaxine [Effexor XR] 75 mg capsule,extended release 24hr 75 mg PO DAILY Qty: 10 0RF desvenlafaxine succinate [Pristiq] 25 mg tablet extended release 24 hr 25 mg PO DAILY Qty: 30 1RF tizanidine 2 mg tablet 2 mg PO TID amlodipine 10 mg tablet 10 mg PO DAILY clonazepam 1 mg tablet 1 mg PO BID Qty: 35 0RF betamethasone valerate 0.1 % cream 1 applic TOPICAL BID PRN (Reason: rash) Discharge Orders: Discharge ED (Routine); Ordered 01/06/24 Ordered By: Gila Tang Referrals: Shania Robledo, [facility] [Primary Care Provider] - Activity Restrictions/Additional Instructions: As we discussed your blood work today is unremarkable. Your UA does not show any evidence of infection. I would like you to follow-up with your primary care provider Dr. aLm later this week for re-evaluation. As we discussed if you have not had a well woman's exam/pelvic exam I would recommend you get one done through primary care. Coding Level of Care Code ED Camera Prototyping Engineer for Stefany Raza
[2024-01-06 14:52] LABS: Add Urine Microscopic? YES; Bacteria Urine TRACE /hpf; Bilirubin Urine Neg (Negative); Blood Urine Neg (Negative); Glucose Urine UA Norm (Normal); Ketones Urine Negative (Negative); Leukocyte Esterase Urine Negative (Negative); Nitrate Urine Negative (Negative); Protein Urine Neg (Negative); Squamous Epithelial Cell Urine 0-4 /hpf (0-5); Urine Appearance Slightly Cloudy (CLEAR); Urine Color Yellow (Yellow); Urobilinogen Urine Norm (Negative); pH Urine 6 (5-7)
== END 2024-01-06 15:30 | disposition home or self-care (01) ==
PROVIDERS: Emergency Medicine; Emergency Provider Physician Assistant; PCP Nurse Practitioner Family
DX: R10.2 Pelvic and perineal pain (principal)
CPT/HCPCS: 80053; 81001; 83690; 85025; 99283

== ENCOUNTER → 2024-01-13 09:00 | Outpatient (BNVA) | payer MEDICARE, MEDICAID, SELFPAY | PROVIDERS: PCP Nurse Practitioner Family; Visit Provider Nurse Practitioner Family | DX: I10 Essential (primary) hypertension (principal) | CPT/HCPCS: 99213 ==

== ENCOUNTER 2024-01-18 06:00 | Outpatient (RCR) | payer MEDICARE, MEDICAID, SELFPAY | END 2024-02-17 23:59 | disposition home or self-care (01) | LOC: SPT 06:00 | PROVIDERS: PCP Nurse Practitioner Family; Visit Provider Family Medicine | DX: I63.9 Cerebral infarction, unspecified (principal) | CPT/HCPCS: 97110; 97112 ==

== ENCOUNTER 2024-01-18 06:00 | Outpatient (RCR) | payer MEDICARE, MEDICAID, SELFPAY | END 2024-02-17 23:59 | disposition home or self-care (01) | LOC: SOT 06:00 | PROVIDERS: PCP Nurse Practitioner Family; Visit Provider Family Medicine | DX: I69.931 Monoplegia of upper limb following unspecified cerebrovascular disease affecting right dominant side (principal) | CPT/HCPCS: 97110; 97112 ==

== ENCOUNTER → 2024-03-22 14:26 | Outpatient (BNVA) | payer MEDICARE, MEDICAID, SELFPAY | PROVIDERS: PCP Nurse Practitioner Family; Visit Provider Nurse Practitioner Psychiatric/Mental Health | DX: Z79.899 Other long term (current) drug therapy (principal) | CPT/HCPCS: 80061; 83036 ==

== ENCOUNTER 2024-06-02 08:24 | Outpatient (CLI) | payer MEDICARE, MEDICAID, SELFPAY ==
--- NOTE | 2024-06-02 08:30 | CT_ITS ---
WS: [id number] CT HEAD WITH AND WITHOUT CONTRAST HISTORY: R58 - Hemorrhage, not elsewhere classified TECHNIQUE: Noncontrast 2.5 mm axial images obtained from the vertex to the skull base. Additional pierce ging performed at 2.5 mm axial images status post IV contrast. Bone and soft tissue windows are revie wed. All CT scans at [facility] use at least one of these dose optimization techniques: autom ated exposure control; mA and/or kV adjustment per patient size (includes targeted exams where dose i s matched to clinical indication); or iterative reconstruction. CONTRAST: Omnipaque 350; 100 mL IV. DLP: 1978.38 mGy.cm COMPARISON: CT head 06/09/2023, prior MRI brain 11/16/2023 Previously described intracranial LEFT frontoparietal hemorrhage has resolved. There is now an area o f encephalomalacia at the site of the prior infarct with volume loss and decreased density. On the po stcontrast imaging there is a linear area of enhancement measuring 10 x 3 mm in the central bed of th e previous hemorrhagic infarct. This should be reevaluated by MRI. This linear enhancement was also d escribed on the prior MRI from 11/16/2023. This may be of vascular malformation. Repeat MRI should be obtained. There does not appear to be a progression of the edema or the focus of enhancement. The remaining brain demonstrates very mild atrophy and small vessel disease. Posterior fossa is negat uriel. No additional areas of abnormal enhancement. No midline shift. Dural venous sinuses are negative. Paranasal sinuses as visualized: Clear. Mastoid air cells: Clear. Calvarium and scalp: Intact. CT/CT head wo/w con [id number] IMPRESSION: 1. Resolved intracranial hemorrhage involving the previously described LEFT fr ontal parietal infarct. 2. At the site of the prior intracranial hemorrhages volume loss. In the centr al remote infarct there is a linear area of enhancement measuring 10 x 3 mm. Th is was also described on the prior MRI. Does not appear to have increased in si ze since the prior MRI. 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 Suggest repeat MRI brain imaging with and without IV contrast at this time. Patient may be at risk for rehemorrhage. 3. No additional areas of abnormal enhancement.
[2024-06-02 09:02] LABS: Blood Urea Nitrogen 9 mg/dL (8-23)
[2024-06-02] MEDS: iohexol 350 mg/mL 500 mL Btl (per mL) IV (09:15)
== END 2024-06-02 08:25 | disposition home or self-care (01) ==
LOC: RAD 08:26
PROVIDERS: PCP Nurse Practitioner Family; Visit Provider Psychiatry & Neurology Neurology
DX: R58 Hemorrhage, not elsewhere classified (principal)
CPT/HCPCS: 70470; 82565; 84520

== ENCOUNTER 2024-06-24 09:50 | Emergency (ER) | payer MEDICARE, MEDICAID, SELFPAY ==
[2024-06-24 09:55] VITALS: BP 144/86; PULSE 75; RESP 23; TEMP 36.4; O2SAT 97; BMI 24.5
--- NOTE | 2024-06-24 10:06 | CT_ITS ---
WS: [id number] CT HEAD TECHNIQUE: Noncontrast CT of the head obtained from the skullbase to the vertex. CLINICAL INFORMATION: focal seizure? COMPARISON: 06/02/2024 DLP: 1058.[address] scans at [facility] use at least one of these dose optimization techniques: automated e xposure control; mA and/or kV adjustment per patient size (includes targeted exams where dose is matc hed to clinical indication); or iterative reconstruction. FINDINGS: No evidence of intracranial hemorrhage or mass effect. Ventricular system and basal cisterns are harris nt. Mild small vessel changes with mild parenchymal volume loss. No extra-axial fluid collections. No evidence of mass or mass effect. Chronic infarct LEFT frontal lobe with encephalomalacia. Paranasal sinuses and mastoid air cells are well aerated. .Normal visualized soft tissues. CT/CT head wo con* [id number] IMPRESSION: 1. No evidence of intracranial hemorrhage or mass effect. 2. Chronic LEFT frontal infarct with encephalomalacia. 3. No acute intracranial findings.
--- NOTE | 2024-06-24 10:08 | W.ED.SEIZURE ---
HPI - Seizure General: Chief Complaint: Seizure Stated Complaint: possible seizure Time Seen by Provider: 06/24/24 09:52 Source: patient and EMS Mode of arrival: EMS Limitations: no limitations History of Present Illness: HPI Narrative: Patient is a 74-year-old female presents to ED today via EMS for an episode of jerking/shaking involving her right arm and right leg earlier today. Patient states about an hour or so she was walking outside to go to the barn to grab food for an animal. She states she came back inside and began noticing that her right arm was shaking. She states this lasted for less than a minute and then her right leg began to jerk a little . This too was brief. Symptoms subsided and patient has been normal since. Upon arrival to the emergency department she does not seem concerned about the symptoms-she is asking me repeatedly for prescription for her Clonazepam. States she has been on this medication for 20 years and has been out for over a month and cannot find anybody to re-prescribe it to her. Patient has a history of left frontal/parietal hemorrhagic stroke in 2022 leaving her with right-sided deficits. Her left leg weakness has vastly improved since stroke and she can now walk well-did PT/OT. She has residual significant right arm weakness that is unchanged today. Neurology note does report spasticity in the right upper extremity. She states it is not uncommen for her right leg to jerk sometimes but the arm has not previously until today. She has no new focal deficits upon arrival to ED. No previous history of seizures. complaint: possible seizure Onset (ago): hour(s) Description of Episode: other ( jerking/shaking to R arm/leg) Duration of episode: 1 -: minutes(s) Witnessed: Yes - by Bystander (significant other) Trauma: No Seizure History: No Place: Home Possible Precipitating Event: stress Associated symptoms: Reports no associated symptoms; Deny chest pain, chills, confusion, fever(s), malaise or syncope Treatments prior to arrival: none Related Data Home Medications Medication Instructions Recorded Confirmed betamethasone valerate 0.1 % 1 applic topical BID PRN rash 04/30/23 03/22/24 topical cream amlodipine 10 mg tablet 10 mg PO DAILY 07/19/23 03/22/24 tizanidine 2 mg tablet 2 mg PO TID 07/19/23 03/22/24 losartan 100 mg tablet 100 mg PO 10/12/23 03/22/24 Previous Rx's Medication Instructions Recorded atorvastatin 40 mg tablet 40 mg PO DAILY #90 tabs 12/09/23 Allergies Allergy/AdvReac Type Severity Reaction Status Date / Time divalproex sodium Allergy Mild ADR-Confusi Verified 06/24/24 10:07 [From Depakote] on aripiprazole [From Abilify] Allergy ADR-Irritab Verified 06/24/24 10:07 le lithium Allergy Unknown Verified 06/24/24 10:07 vilazodone [From Viibryd] Allergy Unknown Verified 06/24/24 10:07 Review of Systems Const: Denies: fever(s), chills, body aches, fatigue or malaise Eyes: Denies: change in vision, blurry vision, floaters or seeing flashes Card: Denies: chest pain, palpitations, lightheadedness, syncope or pre-syncope Resp: Denies: dyspnea GI: Denies: abdominal pain, nausea or vomiting Musc: Denies: neck pain, back pain, extremity pain, extremity swelling, joint pain or joint swelling Skin/Breast: Denies: rash Neuro: Reports: weakness in extremities (R arm-chronic/unchanged); Denies: headache(s), lack of coordination, difficulty walking, dizziness, vertigo, confusion, behavioral changes or Slurred speech present Psych: Reports: anxiety PFSH ED PFSH: Medical History Bipolar 2 disorder Generalized anxiety disorder Psychiatric care Family History Mother Heart disease Stroke Hypertension Hyperlipidemia Denies family history of Colon cancer Ovarian cancer Breast cancer Uterine cancer Thyroid disease Social History Smoking and tobacco/nicotine status: never used tobacco/nicotine Alcohol intake: never Substance/Drug Use: never Lives independently: Yes Household members: significant other Physical Exam Const: COMMON NORMALS: no acute distress, average body habitus, patient oriented x3, no limitations, alert and well nourished GENERAL APPEARANCE: cooperative and anxious ORIENTATION/CONSCIOUSNESS: Yes awake, Yes oriented to person, Yes oriented to place and Yes oriented to time HENMT: FACE & SINUS: normal facial exam and face symmetric Eye: COMMON NORMALS: Equal, round and reactive pupils present and EOMs intact bilaterally GENERAL EYE: appearance normal, both eyes and all related structures and normal light reflex PUPIL: Yes Equal, round and reactive pupils present DIRECT OPHTHALMOSCOPY: Yes normal light reflex Neck/C-Spine: COMMON NORMALS: full ROM, no lymphadenopathy and no meningeal signs Resp: COMMON NORMALS: normal respiratory effort and clear to auscultation bilaterally AUSCULTATION: clear to auscultation bilaterally Cardio: COMMON NORMALS: regular rate and regular rhythm RATE: regular rate RHYTHM: regular rhythm Back/Pelvis: COMMON NORMALS: thoracic and lumbar spine normal to inspection Extremity: COMMON NORMALS: normal to inspection, capillary refill normal, no joint enlargement, no clubbing, cyanosis or edema, no calf tenderness and no pedal edema GENERAL: Yes normal exam except as noted Neuro: DRAGAN COMA SCALE: document GCS findings [place] coma scale eye opening: Spontaneous Dragan coma scale verbal response: Orientated [place] coma scale motor response: Obey commands Dragan coma scale total score: 15 COMMON NORMALS: patient oriented x3 and CN's II-XII intact bilaterally SENSORIUM/ORIENTATION: Yes alert, Yes oriented to person, Yes oriented to place and Yes oriented to time MENINGEAL SIGNS: Yes no meningeal signs COORDINATION/BALANCE: [id number] test normal SPEECH: speech normal COORDINATION: [id number] test normal OTHER: chronic R UE weakness that is unchanged from baseline; she has no new weakness or new focal deficits on today's exam Course Vital Signs: Vital signs: Vital Signs Temperature 97.5 F L 06/24/24 09:55 Pulse Rate 85 06/24/24 11:06 Respiratory Rate 23 H 06/24/24 09:55 Blood Pressure 134/78 06/24/24 11:06 Pulse Oximetry 95 06/24/24 11:06 Oxygen Delivery Me thod Room Air 06/24/24 09:55 MDM - Seizure MDM Narrative Medical decision making narrative: Patient here for brief episode of right arm and right leg jerking. She does have a history of jerking and spasticity to the right arm and leg following her hemorrhagic stroke last year. She has absolutely no acute focal neurologic deficits upon arrival. Just based on history, I would have a low suspicion for seizure. Recommend she follow-up with her neurologist. Her vital signs are unremarkable. Blood work here is nonactionable. Her head CT is unremarkable. UA did show positive nitrates with trace leuks. She has absolutely no UTI-like symptoms. Will culture and forego antibiotics until this returns. Lab Data 06/24/24 09:30 06/24/24 09:30 Labs: Radiology Impressions Head CT 06/24/24 10:06 IMPRESSION: 1. No evidence of intracranial hemorrhage or mass effect. 2. Chronic LEFT frontal infarct with encephalomalacia. 3. No acute intracranial findings. Laboratory Results WBC 5.33 10^3/uL (3.29-11.43) 06/24/24 09:30 RBC 4.72 10^6/uL (3.85-5.65) 06/24/24 09:30 Hgb 13.50 g/dL (11.27-16.99) 06/24/24 09:30 Hct 41.2 % (36-47) 06/24/24 09:30 MCV 87.3 fl (85-98) 06/24/24 09:30 MCH 28.6 pg (27-33) 06/24/24 09:30 MCHC 32.8 g/dL (30-55) 06/24/24 09:30 RDW 13.1 % (12.1-15.1) 06/24/24 09:30 Plt Count 195 10^3/cmm (157-399) 06/24/24 09:30 MPV 11.3 fL (7.4-10.4) H 06/24/24 09:30 Neut % (Auto) 23.7 % 06/24/24 09:30 Lymph % (Auto) 66.0 % 06/24/24 09:30 Lane % (Auto) 6.4 % 06/24/24 09:30 Eos % (Auto) 2.8 % 06/24/24 09:30 Baso % (Auto) 0.9 % 06/24/24 09:30 Neut # (Auto) 1.26 10^3/uL (1.8-7.7) L 06/24/24 09:30 Lymph # (Auto) 3.5 10^3/uL (0.8-4.8) 06/24/24 09:30 Lane # (Auto) 0.3 10^3/uL (0.2-0.9) 06/24/24 09:30 Eos # (Auto) 0.2 10^3/uL (0.0-0.8) 06/24/24 09:30 Baso # (Auto) 0.1 10^3/uL (0.0-0.1) 06/24/24 09:30 Nucleated RBC % (auto) 0 % 06/24/24 09:30 Nucleated RBCs # 0.0 /100WBC 06/24/24 09:30 Sodium 136 mmol/L (136-145) 06/24/24 09:30 Potassium 3.9 mmol/L (3.5-5.1) 06/24/24 09:30 Chloride 102 mmol/L (98-107) 06/24/24 09:30 Carbon Dioxide 21 mmol/L (22-29) L 06/24/24 09:30 Anion Gap 16.9 (5-19) 06/24/24 09:30 BUN 11 mg/dL (8-23) 06/24/24 09:30 Creatinine 0.6 mg/dL (0.5-0.9) 06/24/24 09:30 GFR Calculation Not Reportable 06/24/24 09:30 Glucose 110 mg/dL (65-115) 06/24/24 09:30 Calculated Osmolality 282 mOsm/kg (285-295) L 06/24/24 09:30 Calcium 9.2 mg/dL (8.5-10.5) 06/24/24 09:30 Total Bilirubin 0.5 mg/dL (0.15-1.2) 06/24/24 09:30 AST 30 U/L (0-32) 06/24/24 09:30 ALT 23 U/L (0-33) 06/24/24 09:30 Alkaline Phosphatase 97 U/L (35-105) 06/24/24 09:30 Total Protein 7.1 g/dL (6.6-8.7) 06/24/24 09:30 Albumin 4.1 g/dL (3.5-5.2) 06/24/24 09:30 Globulin 3.0 g/dL (1.3-4.6) 06/24/24 09:30 Urine Color Yellow (Yellow) 06/24/24 10:48 Urine Appearance Clear (CLEAR) 06/24/24 10:48 Urine pH 8.0 (5-7) A 06/24/24 10:48 Ur Specific [place] 1.004 (1.005-1.030) L 06/24/24 10:48 Urine Protein Negative (Negative) 06/24/24 10:48 Urine Glucose (UA) Negative (Normal) 06/24/24 10:48 Urine Ketones Negative (Negative) 06/24/24 10:48 Urine Blood Negative (Negative) 06/24/24 10:48 Urine Nitrate Positive (Negative) A 06/24/24 10:48 Urine Bilirubin Negative (Negative) 06/24/24 10:48 Urine Urobilinogen 0.2 mg/dL (Negative) 06/24/24 10:48 Ur Leukocyte Esterase Trace (Negative) A 06/24/24 10:48 Urine RBC 0-2 /hpf (0-2) 06/24/24 10:48 Urine WBC 0-5 /hpf (0-5) 06/24/24 10:48 Ur Squamous Epith Cells 0-5 /hpf (0-5) 06/24/24 10:48 Amorphous Sediment Not Reportable 06/24/24 10:48 Urine Bacteria 4+ /hpf (NONE) H 06/24/24 10:48 Hyaline Casts 0.40 /lpf 06/24/24 10:48 All radiology interpretation(s) finalized by discharge Discharge Plan Discharge Patient Disposition: Home Clinical Impression: Jerking movements of extremities Condition: Stable Prescriptions: No Action losartan 100 mg tablet 100 mg PO atorvastatin 40 mg tablet 40 mg PO DAILY Qty: 90 3RF tizanidine 2 mg tablet 2 mg PO TID amlodipine 10 mg tablet 10 mg PO DAILY betamethasone valerate 0.1 % cream 1 applic TOPICAL BID PRN (Reason: rash) Discharge Orders: Discharge ED (Routine); Ordered 06/24/24 Ordered By: Gila Tang Referrals: Shania Robledo, [employer] [Primary Care Provider] - Activity Restrictions/Additional Instructions: As we discussed, I would like you to follow-up with your neurologist for further evaluation of symptoms today. You need to return the emergency department for worsening or continued symptoms or any new weakness or loss of sensation to your extremities, facial droop, slurred speech, or any other concerns you may have. Coding Level of Care Code ED Health Information Assistant for Stefany Raza
[2024-06-24 10:17] LABS: Basophils # 0.1 10^3/uL (0.0-0.1); Basophils % 0.9 %; Eosinophils # 0.2 10^3/uL (0.0-0.8); Eosinophils % 2.8 %; Hematocrit 41.2 % (36-47); Lymphocytes # 3.5 10^3/uL (0.8-4.8); Mean Corpuscular HGB Conc 32.8 g/dL (30-55); Mean Corpuscular Hemoglobin 28.6 pg (27-33); Mean Corpuscular Volume 87.3 fl (85-98); Mean Platelet Volume 11.3 fL (7.4-10.4); Monocytes # 0.3 10^3/uL (0.2-0.9); Monocytes % 6.4 %; Neutrophils # 1.26 10^3/uL (1.8-7.7); Neutrophils % 23.7 %; Nucleated Red Blood Cells % 0 %; Platelet Count 195 10^3/cmm (157-399); Red Blood Count 4.72 10^6/uL (3.85-5.65); Red Cell Distribution Width 13.1 % (12.1-15.1); White Blood Count 5.33 10^3/uL (3.29-11.43)
[2024-06-24 10:38] LABS: Alanine Aminotransferase 23 U/L (0-33); Albumin Level 4.1 g/dL (3.5-5.2); Alkaline Phosphatase 97 U/L (35-105); Aspartate Amino Transferase 30 U/L (0-32); Blood Urea Nitrogen 11 mg/dL (8-23); Calcium 9.2 mg/dL (8.5-10.5); Carbon Dioxide 21 mmol/L (22-29); Chloride 102 mmol/L (98-107); Creatinine Clr Calc Pharmacy 52.4483; Glucose 110 mg/dL (65-115); Osmolality Calculated 282 mOsm/kg (285-295); Sodium 136 mmol/L (136-145); Total Bilirubin 0.5 mg/dL (0.15-1.2); Total Protein 7.1 g/dL (6.6-8.7)
[2024-06-24 10:39] LABS: Anion Gap 16.9 (5-19); Potassium 3.9 mmol/L (3.5-5.1)
[2024-06-24 10:57] VITALS: PULSE 87; O2SAT 93
[2024-06-24 11:06] VITALS: BP 134/78; PULSE 85; O2SAT 95
[2024-06-24 11:22] LABS: Bacteria Urine 4+ /hpf; RBC Urine 0-2 /hpf (0-2); Squamous Epithelial Cell Urine 0-5 /hpf (0-5); WBC Urine 0-5 /hpf (0-5)
[2024-06-24 11:24] LABS: Add Urine Microscopic? YES; Bilirubin Urine Negative (Negative); Blood Urine Negative (Negative); Glucose Urine UA Negative (Normal); Ketones Urine Negative (Negative); Leukocyte Esterase Urine Trace (Negative); Nitrate Urine Positive (Negative); Protein Urine Negative (Negative); Specific Gravity, Urine 1.004 (1.005-1.030); Urine Appearance Clear (CLEAR); Urine Color Yellow (Yellow); Urobilinogen Urine 0.2 mg/dL (Negative)
[2024-06-24 11:25] LABS: Add Urine Culture? Yes
[2024-06-24 11:32] VITALS: BP 134/78; PULSE 82; O2SAT 99
== END 2024-06-24 11:43 | disposition home or self-care (01) ==
PROVIDERS: Emergency Provider Physician Assistant; PCP Nurse Practitioner Family
DX: R25.3 Fasciculation (principal)
CPT/HCPCS: 70450; 80053; 81001; 85025; 87077; 87086; 87186; 99284

== ENCOUNTER 2024-07-07 10:58 | Outpatient (CLI) | payer MEDICARE, MEDICAID, SELFPAY ==
--- NOTE | 2024-07-07 11:00 | MR_ITS ---
WS: [id number] MRI BRAIN WITH AND WITHOUT CONTRAST HISTORY: R25.2 - Cramp and spasm COMPARISON: 11/16/2023, CT 06/24/2024 TECHNIQUE: Multiplanar imaging performed through the brain with MultiHance 11 ml's IV. No acute infarcts are seen. [place]-white matter differentiation is well preserved. Chronic remote hemor rhagic infarct LEFT frontal lobe is unchanged. T2 and FLAIR signal hyperintensities surrounding the ventricles and subcortical white matter similar to the prior exam without progression. Mild cerebral atrophy. Ventricles and extra-axial spaces are normal. Clivus and pituitary gland are normal. Visualized posterior fossa and brainstem are also normal. No enhancing mass. There is continued enhancement in the central LEFT frontal lobe infarct as seen on the prior study from 11/16/2023. 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 There parikh s been no progression in the nidus of enhancement appears slightly decreased in size. Dural venous sinuses are normal. Paranasal sinuses: Well aerated with no significant disease. Mastoid air cells: Normal. Calvarium and scalp: Normal. MR/MR head wo/w con [id number] IMPRESSION: 1. No acute infarct or hemorrhage. 2. Remote hemorrhagic infarct LEFT frontal lobe is stable. Focal area of enhan cement is also stable in the central infarct may be a vascular malformation. 3. Mild cerebral atrophy with mild to moderate small vessel ischemic changes w hich are stable.
[2024-07-07] MEDS: gadobenate dimeglumine 20 mL vial 11 ML IV (11:57)
== END 2024-07-07 10:59 | disposition home or self-care (01) ==
LOC: RAD 10:59
PROVIDERS: PCP Nurse Practitioner Family; Visit Provider Psychiatry & Neurology Neurology
DX: I61.1 Nontraumatic intracerebral hemorrhage in hemisphere, cortical (principal); I67.82 Cerebral ischemia; I10 Essential (primary) hypertension; E78.5 Hyperlipidemia, unspecified; I61.9 Nontraumatic intracerebral hemorrhage, unspecified; G81.91 Hemiplegia, unspecified affecting right dominant side; R25.2 Cramp and spasm
CPT/HCPCS: 70553

== ENCOUNTER → 2024-07-12 11:45 | Outpatient (BNVA) | payer MEDICARE, MEDICAID, SELFPAY | PROVIDERS: PCP Nurse Practitioner Family; Visit Provider Internal Medicine Cardiovascular Disease | DX: R94.31 Abnormal electrocardiogram [ECG] [EKG] (principal); I10 Essential (primary) hypertension; E78.5 Hyperlipidemia, unspecified; Z82.49 Family history of ischemic heart disease and other diseases of the circulatory system; F31.81 Bipolar II disorder | CPT/HCPCS: 99213 ==

== ENCOUNTER 2024-07-29 13:30 | Inpatient (IN) | payer MEDICARE, MEDICAID, SELFPAY ==
[2024-07-29] VITALS (9 sets, daily range): BP systolic 96–141; BP diastolic 56–70; PULSE 75–105; RESP 16–19; TEMP 36.9–38; O2SAT 91–100; BMI 23.2
--- NOTE | 2024-07-29 13:51 | CTR_ITS ---
PROCEDURE INFORMATION: Exam: CT Abdomen And Pelvis Without Contrast Exam date and time: 07/29/2024 2:24 PM Age: 74 years old Clinical indication: Abdominal pain; Additional info: Flank pain. No history of recent trauma or surgery is provided. TECHNIQUE: Imaging protocol: Computed tomography of the abdomen and pelvis without contrast. 484image(s) are provided. Radiation optimization: All CT scans at this facility use at least one of these dose optimization techniques: automated exposure control; mA and/or kV adjustment per patient size (includes targeted exams where dose is matched to clinical indication); or iterative reconstruction. Other technique: Axial images are available with sagittal and coronal reconstruction views. Automated dose exposure control is utilized. The DLP is 378.71. COMPARISON: CT abdomen pelvis w con* [id number] 03/03/2023 4:11 PM RADIATION DOSE METRICS: Total DLP (mGy-cm): 378.71 FINDINGS: Lungs: No lobar consolidation is appreciated.There is slight asymmetric right hemidiaphragm elevation. Heart: No significant interval pericardial fluid collection is appreciated. Liver: There appears to be slightly low, heterogeneous appearance of the hepatic parenchyma. Gallbladder and biliary ducts: There appears to be some trace gallbladder sludge. Consider hepatobiliary laboratory profile studies. Pancreas: No pancreatic ductal dilatation or calculus is currently appreciated. Spleen: Unremarkable. Adrenal glands: There appears to be some subtle adrenal hypertrophy. Kidneys and ureters: No radiopaque obstructive calculus or hydronephrosis appreciated. There is however significant asymmetric right perinephric stranding demonstrated. Stomach and bowel: Some aspects of the colon are undistended. This may also be peristaltic related.There is some stool present limiting mucosal detail evaluation.The bowel gas pattern appears nonobstructive. There is a small sliding-type hiatal hernia demonstrated with slight gastroesophageal fold thickening. There is some ingested, bowel content present. There is some colonic diverticulosis present. Appendix: No evidence of appendicitis. Intraperitoneal space: No free air or significant free fluid collections are otherwise currently appreciated. Vasculature: No abdominal aortic saccular aneurysmal dilatation is appreciated with some chronic atherosclerotic related changes. Lymph nodes: There are subcentimeter predominant para-aortic and mesenteric lymph nodes overall present. Urinary bladder: Unremarkable as visualized. Reproductive: There appears to be some heterogeneous, calcific related change of the uterus and could be seen with some ill-defined myomatous related change. Bones/joints: No interval displaced fracture or dislocation is appreciated.There are some degenerative changes of the hips and spine overall present. There is slightly heterogeneous, decreased bone mineralization overall. Soft tissues: No radiopaque foreign body or subcutaneous emphysema is appreciated. No subcutaneous fluid collections are appreciated. Other findings: There is some motion artifact present. No other significant interval changes are appreciated. CT/CT kidney stone [id number] IMPRESSION: There is significant asymmetric right perinephric stranding with no interval radiopaque obstructive calculus or hydronephrosis suggestive urinary tract inflammation, pyelonephritis.
--- NOTE | 2024-07-29 13:52 | ED_ITS ---
HPI - General Adult 2 General: Chief complaint: General Medical Stated complaint: UTI Cant keep anything down Time Seen by Provider: 07/29/24 13:34 History of Present Illness: 74-year-old presents emergency room with nausea and vomiting. Generalized bodyaches. She states she checked a UTI home kit and it was positive. She describes feeling full and have a difficult time urinating. She denies any fevers. She has had nausea and vomiting the last couple of days a difficult time holding things down. She denies chest pain or shortness of breath. Associated symptoms: Reports nausea and vomiting; Deny chest pain, dyspnea or rash Related Data Home Medications Medication Instructions Recorded Confirmed amlodipine 10 mg tablet 10 mg PO DAILY 07/19/23 07/29/24 losartan 100 mg tablet 100 mg PO DAILY 10/12/23 07/29/24 clonazepam 1 mg tablet 1 mg PO BID 07/29/24 07/29/24 quetiapine 50 mg tablet 50 mg PO QPM 07/29/24 07/29/24 venlafaxine 37.5 mg 37.5 mg PO DAILY 07/29/24 07/29/24 capsule,extended release 24 hr Allergies Allergy/AdvReac Type Severity Reaction Status Date / Time divalproex sodium Allergy Mild ADR-Confusi Verified 07/29/24 12:39 [From Depakote] on aripiprazole [From Abilify] Allergy ADR-Irritab Verified 07/29/24 12:39 le lithium Allergy Unknown Verified 07/29/24 12:39 vilazodone [From Viibryd] Allergy Unknown Verified 07/29/24 12:39 Review of Systems 2 Const: Denies: fever(s) or chills Card: Denies: chest pain Resp: Denies: dyspnea GI: Reports: nausea and vomiting; Denies: abdominal pain : Denies: dysuria, urinary frequency or urinary urgency Musc: Denies: neck pain or back pain Skin/Breast: Denies: rash PFSH ED 2 PFSH: Medical History Bipolar 2 disorder Generalized anxiety disorder Psychiatric care Family History Mother Heart disease Stroke Hypertension Hyperlipidemia Denies family history of Colon cancer Ovarian cancer Breast cancer Uterine cancer Thyroid disease Social History Smoking and tobacco/nicotine status: never used tobacco/nicotine Alcohol intake: never Substance/Drug Use: never Lives independently: Yes Household members: significant other Physical Exam 2 Const: GENERAL APPEARANCE: cooperative ORIENTATION/CONSCIOUSNESS: Yes awake, Yes oriented to person, Yes oriented to place and Yes oriented to time HENMT: COMMON NORMALS: normocephalic, atraumatic and hearing grossly normal bilaterally HEAD & SCALP: normocephalic and atraumatic Resp: COMMON NORMALS: normal respiratory effort, No retractions, No use of accessory muscles and clear to auscultation bilaterally AUSCULTATION: clear to auscultation bilaterally Cardio: COMMON NORMALS: regular rate, regular rhythm and No murmurs present (Cardio) RATE: regular rate RHYTHM: regular rhythm GI: COMMON NORMALS: Soft to palpation and No hepatosplenomegaly present A USCULTATION: Yes normoactive bowel sounds PALPATION: Yes Soft to palpation, No Tenderness to palpation present (GI), No Guarding due to palpation present (GI) and Yes No hepatosplenomegaly present : BLADDER/KIDNEY EXAM: Yes CVA tenderness Back/Pelvis: GENERAL BACK: Yes CVA tenderness CVA tenderness: right Extremity: COMMON NORMALS: normal to inspection, capillary refill normal, no clubbing, cyanosis or edema, no calf tenderness and no pedal edema Neuro: SENSORIUM/ORIENTATION: Yes oriented to person, Yes oriented to place and Yes oriented to time Skin: COMMON NORMALS: no rashes or lesions noted GENERAL SKIN EXAM: no rashes or lesions noted Course 2 Vital Signs: Vital signs: Vital Signs Temperature 98.5 F 07/29/24 13:34 Pulse Rate 105 H 07/29/24 14:23 Respiratory Rate 16 07/29/24 13:34 Blood Pressure 135/70 07/29/24 14:23 Pulse Oximetry 95 07/29/24 14:23 Oxygen Delivery Me thod Room Air 07/29/24 13:34 MDM - General Adult Medical Decision Making Patient is a pyelonephritis white count of 13,000 with a left shift previous urine culture showed E. coli which was sensitive to quinolones. Mild hyponatremia as well. Initiate ceftriaxone. Will admit because of her persistent nausea and vomiting mild anion gap as well. Lactate was 1.3. Discussed Dr. Reza urine and blood cultures ordered. Admission orders written. Medical Records I reviewed the patient's medical records. Lab Data I reviewed the patient's lab results. 07/29/24 14:09 07/29/24 14:09 Radiology Impressions Abdomen/Pelvis CT 07/29/24 13:51 IMPRESSION: There is significant asymmetric right perinephric stranding with no interval radiopaque obstructive calculus or hydronephrosis suggestive urinary tract inflammation, pyelonephritis. Laboratory Results WBC 13.46 10^3/uL (3.29-11.43) H 07/29/24 14:09 RBC 3.96 10^6/uL (3.85-5.65) 07/29/24 14:09 Hgb 11.80 g/dL (11.27-16.99) 07/29/24 14:09 Hct 34.2 % (36-47) L 07/29/24 14:09 MCV 86.4 fl (85-98) 07/29/24 14:09 MCH 29.8 pg (27-33) 07/29/24 14:09 MCHC 34.5 g/dL (30-55) 07/29/24 14:09 RDW 13.5 % (12.1-15.1) 07/29/24 14:09 Plt Count 196 10^3/cmm (157-399) 07/29/24 14:09 MPV 9.0 fL (7.4-10.4) 07/29/24 14:09 Neut % (Auto) 82.8 % 07/29/24 14:09 Lymph % (Auto) 7.7 % 07/29/24 14:09 [place] % (Auto) 8.9 % 07/29/24 14:09 Eos % (Auto) 0.0 % 07/29/24 14:09 Baso % (Auto) 0.3 % 07/29/24 14:09 Neut # (Auto) 11.15 10^3/uL (1.8-7.7) H 07/29/24 14:09 Lymph # (Auto) 1.0 10^3/uL (0.8-4.8) 07/29/24 14:09 [place] # (Auto) 1.2 10^3/uL (0.2-0.9) H 07/29/24 14:09 Eos # (Auto) 0.0 10^3/uL (0.0-0.8) 07/29/24 14:09 Baso # (Auto) 0.0 10^3/uL (0.0-0.1) 07/29/24 14:09 Nucleated RBC % (auto) 0 % 07/29/24 14:09 Nucleated RBCs # 0.0 /100WBC 07/29/24 14:09 Sodium 128 mmol/L (136-145) L 07/29/24 14:09 Potassium 3.4 mmol/L (3.5-5.1) L 07/29/24 14:09 Chloride 92 mmol/L (98-107) L 07/29/24 14:09 Carbon Dioxide 19 mmol/L (22-29) L 07/29/24 14:09 Anion Gap 20.4 (5-19) H 07/29/24 14:09 BUN 12 mg/dL (8-23) 07/29/24 14:09 Creatinine 0.7 mg/dL (0.5-0.9) 07/29/24 14:09 GFR Calculation Not Reportable 07/29/24 14:09 Glucose 122 mg/dL (65-115) H 07/29/24 14:09 Calculated Osmolality 267 mOsm/kg (285-295) L 07/29/24 14:09 Lactic Acid 1.3 mmol/L (0.5-2.2) 07/29/24 14:09 Calcium 8.4 mg/dL (8.5-10.5) L 07/29/24 14:09 Total Bilirubin 0.6 mg/dL (0.15-1.2) 07/29/24 14:09 AST 29 U/L (0-32) 07/29/24 14:09 ALT 24 U/L (0-33) 07/29/24 14:09 Alkaline Phosphatase 91 U/L (35-105) 07/29/24 14:09 Total Protein 6.6 g/dL (6.6-8.7) 07/29/24 14:09 Albumin 3.5 g/dL (3.5-5.2) 07/29/24 14:09 Globulin 3.1 g/dL (1.3-4.6) 07/29/24 14:09 Urine Color Yellow (Yellow) 07/29/24 14:21 Urine Appearance Turbid (CLEAR) A 07/29/24 14:21 Urine pH 5.5 (5-7) 07/29/24 14:21 Ur Specific [place] 1.019 (1.005-1.030) 07/29/24 14:21 Urine Protein 2+ (Negative) A 07/29/24 14:21 Urine Glucose (UA) Negative (Normal) 07/29/24 14:21 Urine Ketones Negative (Negative) 07/29/24 14:21 Urine Blood 2+ (Negative) A 07/29/24 14:21 Urine Nitrate Positive (Negative) A 07/29/24 14:21 Urine Bilirubin Negative (Negative) 07/29/24 14: Urine Urobilinogen 0.2 mg/dL (Negative) 07/29/24 14:21 Ur Leukocyte Esterase 2+ (Negative) A 07/29/24 14:21 Urine RBC 6-10 /hpf (0-2) 07/29/24 14:21 Urine WBC >100 /hpf (0-5) H 07/29/24 14:21 Ur Squamous Epith Cells 0-5 /hpf (0-5) 07/29/24 14:21 Amorphous Sediment Not Reportable 07/29/24 14:21 Urine Bacteria Exceeds /hpf (NONE) 07/29/24 14:21 Hyaline Casts 31.43 /lpf 07/29/24 14:21 All radiology interpretation(s) finalized by discharge Discharge Plan Discharge Condition: Stable Prescriptions: No Action losartan 100 mg tablet 100 mg PO DAILY amlodipine 10 mg tablet 10 mg PO DAILY venlafaxine 37.5 mg capsule,extended release 24hr 37.5 mg PO DAILY clonazepam 1 mg tablet 1 mg PO BID quetiapine 50 mg tablet 50 mg PO QPM Referrals: Shania Robledo [employer]IP BOLTER [employer] WRAPPER [Primary Care Provider] - Coding Level of Care Code ED Chrome Tanning Drum Operator for Stefany Raza
[2024-07-29] MEDS: ondansetron 2 mg/ML SDV 2 mL 4 MG IVP (14:06)
[2024-07-29 14:20] LABS: Basophils % 0.3 %; Hematocrit 34.2 % (36-47); Lymphocytes % 7.7 %; Mean Corpuscular HGB Conc 34.5 g/dL (30-55); Mean Corpuscular Hemoglobin 29.8 pg (27-33); Mean Corpuscular Volume 86.4 fl (85-98); Monocytes # 1.2 10^3/uL (0.2-0.9); Monocytes % 8.9 %; Neutrophils # 11.15 10^3/uL (1.8-7.7); Neutrophils % 82.8 %; Nucleated Red Blood Cells % 0 %; Platelet Count 196 10^3/cmm (157-399); Red Blood Count 3.96 10^6/uL (3.85-5.65); Red Cell Distribution Width 13.5 % (12.1-15.1); White Blood Count 13.46 10^3/uL (3.29-11.43)
[2024-07-29 14:41] LABS: Bilirubin Urine Negative (Negative); Blood Urine 2+ (Negative); Glucose Urine UA Negative (Normal); Ketones Urine Negative (Negative); Leukocyte Esterase Urine 2+ (Negative); Nitrate Urine Positive (Negative); Protein Urine 2+ (Negative); Specific Gravity, Urine 1.019 (1.005-1.030); Urine Appearance Turbid (CLEAR); Urine Color Yellow (Yellow); Urobilinogen Urine 0.2 mg/dL (Negative); pH Urine 5.5 (5-7)
[2024-07-29 14:44] LABS: Alanine Aminotransferase 24 U/L (0-33); Albumin Level 3.5 g/dL (3.5-5.2); Alkaline Phosphatase 91 U/L (35-105); Anion Gap 20.4 (5-19); Aspartate Amino Transferase 29 U/L (0-32); Blood Urea Nitrogen 12 mg/dL (8-23); Calcium 8.4 mg/dL (8.5-10.5); Carbon Dioxide 19 mmol/L (22-29); Chloride 92 mmol/L (98-107); Creatinine Clr Calc Pharmacy 51.1739; Globulin 3.1 g/dL (1.3-4.6); Glucose 122 mg/dL (65-115); Osmolality Calculated 267 mOsm/kg (285-295); Potassium 3.4 mmol/L (3.5-5.1); Sodium 128 mmol/L (136-145); Total Bilirubin 0.6 mg/dL (0.15-1.2); Total Protein 6.6 g/dL (6.6-8.7)
[2024-07-29 14:44] LABS: Add Urine Microscopic? YES; Bacteria Urine EXCEEDS /hpf; Hyaline Casts Urine 31.43 /lpf; Squamous Epithelial Cell Urine 0-5 /hpf (0-5); WBC Urine >100 /hpf (0-5)
[2024-07-29 14:52] LABS: UA Slide Review UA Slide Review Perf
[2024-07-29 14:58] LABS: Add Urine Culture? Yes
[2024-07-29 15:14] LABS: Lactic Sepsis W/Reflex 1.3 mmol/L (0.5-2.2)
[2024-07-29] MEDS: cefTRIAXone 1,000 mg SDV 1000 MG IVP (15:39)
--- NOTE | 2024-07-29 17:11 | P.HP_ITS ---
Providers/Chief Complaint 2 Admitting Physician: Temi Reza MD Primary Care Provider: Shania Robledo Chief Complaint: UTI Cant keep anything down History of Present Illness Kisha Villalobos is a 74 year old female with past medical history of hypertension, recent hemorrhagic stroke, recurrent UTI presents to the ER today because of difficulty in passing urine, abdominal pain and nausea getting worse over last 3 days. In the ER there was a concern for UTI. Lab work showed a sodium of 128, chloride of 92, white count of 13.4, UA concerning for UTI with more than 100 WBC, CT abdomen pelvis concerning for pyelonephritis Review of Systems 2 General: Reports: 10 or more systems reviewed and unremarkable except in HPI and below Const: Denies: fever(s), chills or body aches Eyes: Denies: change in vision, blurry vision or photophobia ENMT: Reports: hoarseness; Denies: throat pain, enlarged tonsils, odynophagia or nasal congestion Card: Denies: chest pain, palpitations, irregular heart rhythm, edema, swelling of feet/ankles, lightheadedness, pre-syncope, dyspnea on exertion or orthopnea Resp: Denies: dyspnea, productive cough, non-productive cough, wheezing, stridor, pain on inspiration, change in phlegm color, hemoptysis or chest congestion GI: Denies: abdominal pain, nausea, vomiting, hematemesis, coffee ground emesis, dysphagia, heartburn, diarrhea, constipation, GI cramping, change in stool character, hematochezia or melena : Denies: flank pain, difficulty voiding, dysuria, urinary frequency, urinary urgency, urinary hesitancy or hematuria Musc: Denies: neck pain, back pain, extremity pain, joint swelling, joint warmth or deformity Neuro: Denies: headache(s), numbness in extremities, weakness in extremities, sensory changes, difficulty walking, frequent falls, dizziness, vertigo, behavioral changes, Slurred speech present or seizure-like activity Psych: Denies: anxiety, depression, suicidal ideation or homicidal ideation Endo: Denies: polyuria, polydipsia, tired all the time, cold intolerance or hot flashes Fercho/Lymph: Denies: easy bruising or easy bleeding Medications/Allergies Home Medications Medication Instructions Recorded Confirmed Last Taken Type amlodipine 10 mg tablet 10 mg PO DAILY 07/19/23 07/29/24 07/18/23 History losartan 100 mg tablet 100 mg PO DAILY 10/12/23 07/29/24 Unknown History clonazepam 1 mg tablet 1 mg PO BID 07/29/24 07/29/24 Unknown History quetiapine 50 mg tablet 50 mg PO QPM 07/29/24 07/29/24 Unknown History venlafaxine 37.5 mg 37.5 mg PO DAILY 07/29/24 07/29/24 Unknown History capsule,extended release 24 hr Allergies Allergy/AdvReac Type Severity Reaction Status Date / Time divalproex sodium Allergy Mild ADR-Confusi Verified 07/29/24 12:39 [From Depakote] on aripiprazole [From Abilify] Allergy ADR-Irritab Verified 07/29/24 12:39 le lithium Allergy Unknown Verified 07/29/24 12:39 vilazodone [From Viibryd] Allergy Unknown Verified 07/29/24 12:39 PFSH Acute 2 PFSH: Medical History (Updated 07/29/24 @ 18:29 by Temi Reza MD) Cataract (lens) fragments in eye following cataract surgery, bilateral Cerebral hemorrhage with hemiparesis Cystocele with third degree uterine prolapse Bipolar 2 disorder Generalized anxiety disorder Psychiatric care Family History Mother Heart disease Stroke Hypertension Hyperlipidemia Denies family history of Colon cancer Ovarian cancer Breast cancer Uterine cancer Thyroid disease Social History Smoking and tobacco/nicotine status: never used tobacco/nicotine Alcohol intake: never Substance/Drug Use: never Lives independently: Yes Household members: significant other Vitals/I&O/Wt Last Vital Signs Temp 98.5 F 07/29/24 13:34 Pulse 87 07/29/24 17:10 Resp 16 07/29/24 13:34 BP 118/68 07/29/24 17:10 Pulse Ox 100 07/29/24 17:10 O2 Del Method Room Air 07/29/24 13:34 07/29/24 07/29/24 07/29/24 06:59 14:59 22:59 Intake Total 0 / 0 Balance 0 / 0 Weight last 48 hrs Weight 55.792 kg Physical Exam 2 Narrative: General: AOx3, mild distress because of difficulty passing urine HEENT: PERRLA, pupils bilaterally equal and reactive, pallors not present Chest: Normal vesicular breath sounds, no added sounds, equal good air entry bilaterally CVS: S1-S2 regular, no murmurs, no tachycardia, no gallops, no rubs Abdomen: Soft, nontender, no organomegaly, bowel sounds present Neuro: No focal deficits, no facial deformity, AO x3, Data 07/29/24 14:09 07/29/24 14:09 Micro: Microbiology 07/29/24 14:39 Blood Culture - Preliminary Blood SPECIMEN COLLECTED 07/29/24 14:09 Blood Culture - Preliminary Blood SPECIMEN COLLECTED A&P Assessment and plan (1) Sepsis: Insetting of UTI/perinephritis. Present on admission. Ruled in with tachycardia, leukocytosis, fever. Associated with hyponatremia. Lactic acid normal limit. Patient did not require sepsis bolus. (2) Urinary tract infection: Check blood culture, follow-up urine culture. Continue with IV ceftriaxone. Appreciate past culture history of UTI with E. coli which was pansensitive. Bladder scan. If retaining will plan for Menendez catheterization. (3) Pyelonephritis: Seen on CT abdomen/pelvis. (4) Hyponatremia: Most likely in setting of poor oral intake. Start on normal saline at 75 cc/h. Monitor BMP daily. (5) Hypokalemia: Replete with 40 mg oral. Repeat BMP in AM. (6) Generalized anxiety disorder: Continue with home dose of Effexor, Seroquel, clonazepam as needed. (7) Bipolar 2 disorder: (8) Cerebral hemorrhage with hemiparesis: Past history. Follows up with neurology. SCD for DVT prophylaxis (9) Benign hypertension: Goal blood pressure less than 140/90 mmHg. Continue with home dose of losartan and amlodipine. Uptitrate for goal blood pressure. Plan Full code Cardiac diet SCD for DVT prophylaxis. Not on medical prophylaxis given history of recent hemorrhagic stroke. Protonix for PUD prophylaxis. Attestations 2 Medical Necessity Statement*: Admission for more than 2 midnights for management of sepsis in setting of pyelonephritis, UTI, hyponatremia in a patient with history of hemorrhagic stroke, recurrent UTIs Diagnoses Sepsis A41.9 Urinary tract infection N39.0 Pyelonephritis N12 Hyponatremia E87.1 Hypokalemia E87.6 Generalized anxiety disorder F41.1 Bipolar 2 disorder F31.81 Cerebral hemorrhage with hemiparesis I61.9; G81.90 Benign hypertension I10
[2024-07-29] MEDS: CLONazepam 1 mg Tablet PO (19:42)
[2024-07-29] MEDS: potassium chloride ER 20 mEq Tablet 40 MEQ PO (19:42)
[2024-07-29] MEDS: acetaminophen 325 mg Tablet 650 MG PO (19:42)
[2024-07-29] MEDS: sodium chloride 0.9% 1,000 ML 75 ML IV (20:03)
[2024-07-30] VITALS (8 sets, daily range): BP systolic 92–125; BP diastolic 51–69; PULSE 56–87; RESP 16–20; TEMP 37.1–39.3; O2SAT 90–93
[2024-07-30] MEDS: trazodone 50 mg Tablet 25 MG PO (00:55)
[2024-07-30] MEDS: acetaminophen 325 mg Tablet 650 MG PO ×3 (04:22→22:06)
[2024-07-30] MEDS: quetiapine 25 mg Tablet 50 MG PO ×2 (04:22→21:22)
[2024-07-30 05:01] LABS: Basophils % 0.2 %; Hematocrit 30.1 % (36-47); Lymphocytes # 1.3 10^3/uL (0.8-4.8); Mean Corpuscular HGB Conc 32.9 g/dL (30-55); Mean Corpuscular Hemoglobin 29.6 pg (27-33); Mean Corpuscular Volume 90.1 fl (85-98); Mean Platelet Volume 9.1 fL (7.4-10.4); Monocytes % 9.5 %; Neutrophils # 7.76 10^3/uL (1.8-7.7); Neutrophils % 76.7 %; Nucleated Red Blood Cells % 0 %; Platelet Count 173 10^3/cmm (157-399); Red Blood Count 3.34 10^6/uL (3.85-5.65); Red Cell Distribution Width 13.6 % (12.1-15.1); White Blood Count 10.12 10^3/uL (3.29-11.43)
[2024-07-30 05:21] LABS: Alanine Aminotransferase 18 U/L (0-33); Alkaline Phosphatase 73 U/L (35-105); Anion Gap 15.1 (5-19); Aspartate Amino Transferase 24 U/L (0-32); Blood Urea Nitrogen 11 mg/dL (8-23); Carbon Dioxide 17 mmol/L (22-29); Chloride 103 mmol/L (98-107); Creatinine Clr Calc Pharmacy 52.5029; Globulin 2.9 g/dL (1.3-4.6); Glucose 72 mg/dL (65-115); Osmolality Calculated 272 mOsm/kg (285-295); Potassium 3.1 mmol/L (3.5-5.1); Sodium 132 mmol/L (136-145); Total Bilirubin 0.5 mg/dL (0.15-1.2); Total Protein 5.9 g/dL (6.6-8.7)
[2024-07-30] MEDS: venlafaxine ER (24HR) 37.5 mg Capsule PO (09:41)
[2024-07-30] MEDS: sodium chloride 0.9% 1,000 ML 75 ML IV ×2 (09:41→22:07)
[2024-07-30] MEDS: pantoprazole DR 40 mg Tablet PO (09:43)
--- NOTE | 2024-07-30 14:44 | P.PN_ITS ---
Subjective 2 Subjective: No acute vents overnight. Has remained hemodynamically stable and afebrile. States she is feeling extremely weak right now. Tmax of 102 Fahrenheit since admission. Denies any nausea, vomiting. Menendez catheter was placed yesterday in the evening for urinary retention. Vitals/I&O/Wt Last Vital Signs Temp 102.8 F H 07/30/24 04:00 Pulse 77 07/30/24 12:00 Resp 16 07/30/24 12:00 BP 111/66 07/30/24 12:00 Pulse Ox 93 07/30/24 12:00 O2 Del Method Room Air 07/30/24 12:00 07/29/24 07/30/24 07/30/24 22:59 06:59 14:59 Intake Total 800 / 800 1480 / 1480 Output Total 550 / 550 175 / 725 Balance -550 / -550 625 / 75 1480 / 1480 Weight last 48 hrs Weight 59.103 kg Weight 57.635 kg Weight 55.792 kg Physical Exam 2 Narrative: General: AOx3, no acute distress, sick appearing HEENT: PERRLA, pupils bilaterally equal and reactive, pallors not present Chest: Normal vesicular breath sounds, no added sounds, equal good air entry bilaterally CVS: S1-S2 regular, no murmurs, no tachycardia, no gallops, no rubs Abdomen: Soft, nontender, no organomegaly, bowel sounds present Neuro: No focal deficits, no facial deformity, AO x3, Urinary Catheter Management: Menendez: Cath Placed During This Visit: yes Reason for Continuing Indwelling Catheter: Acute Urinary Retention or Obstruction Urinary Catheter Date of Insertion: 07/29/24 Urinary Catheter Time of Insertion: 19:35 Data 07/30/24 04:45 07/30/24 04:45 Micro: Microbiology 07/29/24 14:39 Blood Culture - Preliminary Blood NEGATIVE TO DATE 07/29/24 14:09 Blood Culture - Preliminary Blood Staphylococcus epidermidis 07/30/24 11:14 Blood Culture - Preliminary Blood SPECIMEN COLLECTED 07/30/24 11:11 Blood Culture - Preliminary Blood SPECIMEN COLLECTED 07/29/24 14:21 Urine Culture - Preliminary Urine,Clean Catch Gram Negative Rods A&P Assessment and plan (1) Sepsis: Present on admission SIRS: Tachycardic, Febrile, Leukocytosis Source: UTI/pyelonephritis End organ damage: Acute metabolic encephalopathy, hyponatremia Lactic acid within normal limits Patient did not receive full 30 mL/kg BW as patient was not hypotensive. NS at 75 cc/h for now. Blood culture 1 out of 4 bottles positive for Staph epidermidis from admission. Concerns for contamination. Repeat blood culture. Follow-up urine culture, trend procalcitonin Keep mean artery pressure 65 mmHg. Continue with IV ceftriaxone. For now we will add vancomycin till repeat blood cultures are negative. De-escalate antibiotics as per culture results. (2) Urinary tract infection: Treatment as above. Appreciate past culture history of UTI with E. coli which was pansensitive. Menendez catheterization. Plan to remove Menendez at the earliest. (3) Pyelonephritis: Seen on CT abdomen/pelvis. (4) Hyponatremia: Most likely in setting of poor oral intake. Continue with normal saline at 75 cc/h. Monitor BMP daily. (5) Hypokalemia: Replete 120 mEq of oral potassium. (6) Generalized anxiety disorder: Continue with home dose of Effexor, Seroquel, clonazepam as needed. (7) Bipolar 2 disorder: (8) Cerebral hemorrhage with hemiparesis: Past history. Follows up with neurology. SCD for DVT prophylaxis (9) Benign hypertension: Goal blood pressure less than 140/90 mmHg with mean over 65. Blood pressure slightly soft today. For now hold off on home dose of losartan and amlodipine. Plan Full code Regular diet SCD for DVT prophylaxis. Not on medical prophylaxis given history of recent hemorrhagic stroke. Protonix for PUD prophylaxis. Attestations 2 Medical Necessity Statement*: Requires further hospitalization for management of sepsis in setting of UTI/pyelonephritis Diagnoses Sepsis A41.9 Urinary tract infection N39.0 Pyelonephritis N12 Hyponatremia E87.1 Hypokalemia E87.6 Generalized anxiety disorder F41.1 Bipolar 2 disorder F31.81 Cerebral hemorrhage with hemiparesis I61.9; G81.90 Benign hypertension I10
[2024-07-30] MEDS: vancomycin 1,750 MG/350 ML PIGGYBACK 175 MG IV (15:10)
[2024-07-30] MEDS: cefTRIAXone 1,000 mg SDV 1000 MG IVP (15:11)
[2024-07-30] MEDS: potassium chloride ER 20 mEq Tablet 80 MEQ PO (15:11)
--- NOTE | 2024-07-30 15:53 | PHA.VACGOAL ---
Vancomycin Goal - Goal Vancomycin Goal:: 15-20 mg/L Vancomycin Indication:: Other (SEPSIS) - Therapy Current therapy:: Other Antibiotic (CEFTRIAXONE) Day of therpy:: Day [1]of [] . Actual body weight (kg): 59.103 kg - Data Labs: WBC 10.12 10^3/uL (3.29-11.43) 07/30/24 04:45 RBC 3.34 10^6/uL (3.85-5.65) L 07/30/24 04:45 Hgb 9.90 g/dL (11.27-16.99) L 07/30/24 04:45 Hct 30.1 % (36-47) L 07/30/24 04:45 MCV 90.1 fl (85-98) 07/30/24 04:45 MCH 29.6 pg (27-33) 07/30/24 04:45 MCHC 32.9 g/dL (30-55) 07/30/24 04:45 RDW 13.6 % (12.1-15.1) 07/30/24 04:45 Sodium 132 mmol/L (136-145) L 07/30/24 04:45 Potassium 3.1 mmol/L (3.5-5.1) L 07/30/24 04:45 Chloride 103 mmol/L (98-107) 07/30/24 04:45 Carbon Dioxide 17 mmol/L (22-29) L 07/30/24 04:45 Anion Gap 15.1 (5-19) 07/30/24 04:45 BUN 11 mg/dL (8-23) 07/30/24 04:45 Creatinine 0.6 mg/dL (0.5-0.9) 07/30/24 04:45 GFR Calculation Not Reportable 07/30/24 04:45 Treatment plan:: new consult Regimen:: New start Vancomycin for Sepsis. No prior Vancomycin history found. Load dose of 1750 mg. Maintenance dose of 500 mg q12h started based on population based pharmacokinetic Nomogram. Pharmacy will continue to monitor daily.
[2024-07-30] MEDS: potassium chloride ER 20 mEq Tablet 40 MEQ PO (17:37)
[2024-07-30] MEDS: CLONazepam 1 mg Tablet PO (17:37)
[2024-07-31] VITALS (9 sets, daily range): BP systolic 101–137; BP diastolic 65–84; PULSE 57–83; RESP 15–19; TEMP 36.8–37.7; O2SAT 91–96
[2024-07-31] MEDS: vancomycin 500 MG in sodium chloride 0.9% (plus) 100 ML 200 MG IV (02:14)
[2024-07-31 05:34] LABS: Basophils % 0.5 %; Eosinophils % 0.5 %; Hematocrit 31.2 % (36-47); Lymphocytes # 1.7 10^3/uL (0.8-4.8); Lymphocytes % 21.7 %; Mean Corpuscular HGB Conc 32.1 g/dL (30-55); Mean Corpuscular Hemoglobin 28.1 pg (27-33); Mean Corpuscular Volume 87.6 fl (85-98); Mean Platelet Volume 10.3 fL (7.4-10.4); Monocytes # 1.1 10^3/uL (0.2-0.9); Monocytes % 13.4 %; Neutrophils # 5.08 10^3/uL (1.8-7.7); Neutrophils % 63.6 %; Nucleated Red Blood Cells % 0 %; Platelet Count 169 10^3/cmm (157-399); Red Blood Count 3.56 10^6/uL (3.85-5.65); Red Cell Distribution Width 13.8 % (12.1-15.1); White Blood Count 7.98 10^3/uL (3.29-11.43)
[2024-07-31 05:51] LABS: Alanine Aminotransferase 21 U/L (0-33); Albumin Level 3.1 g/dL (3.5-5.2); Alkaline Phosphatase 76 U/L (35-105); Anion Gap 14.4 (5-19); Aspartate Amino Transferase 29 U/L (0-32); Blood Urea Nitrogen 8 mg/dL (8-23); Calcium 8.3 mg/dL (8.5-10.5); Carbon Dioxide 19 mmol/L (22-29); Chloride 106 mmol/L (98-107); Creatinine Clr Calc Pharmacy 53.4132; Globulin 2.6 g/dL (1.3-4.6); Glucose 103 mg/dL (65-115); Osmolality Calculated 279 mOsm/kg (285-295); Potassium 4.4 mmol/L (3.5-5.1); Sodium 135 mmol/L (136-145); Total Bilirubin 0.4 mg/dL (0.15-1.2); Total Protein 5.7 g/dL (6.6-8.7)
[2024-07-31] MEDS: CLONazepam 1 mg Tablet PO ×2 (10:03→17:53)
[2024-07-31] MEDS: pantoprazole DR 40 mg Tablet PO (10:03)
[2024-07-31] MEDS: venlafaxine ER (24HR) 37.5 mg Capsule PO (10:04)
[2024-07-31] MEDS: sodium chloride 0.9% 1,000 ML 75 ML IV (11:18)
--- NOTE | 2024-07-31 13:47 | P.PN_ITS ---
Subjective 2 Subjective: No acute events overnight. Denies any nausea, vomiting, headache. States feeling better. Able to tolerate oral diet now. Tmax in last 24 hours 99.7 Fahrenheit. Blood pressure better. Vitals/I&O/Wt Last Vital Signs Temp 98.2 F 07/31/24 11:57 Pulse 64 07/31/24 11:57 Resp 18 07/31/24 11:57 BP 128/79 07/31/24 11:57 Pulse Ox 95 07/31/24 11:57 O2 Del Method Room Air 07/31/24 04:00 07/30/24 07/31/24 07/31/24 22:59 06:59 14:59 Intake Total 1402.5 / 2882.5 100 / 2982.5 1228.75 / 1228.75 Output Total 1650 / 1650 1300 / 2950 Balance -247.5 / 1232.5 -1200 / 32.5 1228.75 / 1228.75 Weight last 48 hrs Weight 61.371 kg Weight 59.103 kg Weight 57.635 kg Physical Exam 2 Narrative: General: AOx3, no acute distress, sick appearing HEENT: PERRLA, pupils bilaterally equal and reactive, pallors not present Chest: Normal vesicular breath sounds, no added sounds, equal good air entry bilaterally CVS: S1-S2 regular, no murmurs, no tachycardia, no gallops, no rubs Abdomen: Soft, nontender, no organomegaly, bowel sounds present Neuro: No focal deficits, no facial deformity, AO x3, Urinary Catheter Management: Menendez: Cath Placed During This Visit: yes Reason for Continuing Indwelling Catheter: Acute Urinary Retention or Obstruction Urinary Catheter Date of Insertion: 07/29/24 Urinary Catheter Time of Insertion: 19:35 Data 07/31/24 04:50 07/31/24 04:50 Micro: Microbiology 07/29/24 14:21 Urine Culture - Final Urine,Clean Catch Escherichia coli 07/30/24 11:14 Blood Culture - Preliminary Blood NEGATIVE TO DATE 07/30/24 11:11 Blood Culture - Preliminary Blood NEGATIVE TO DATE 07/29/24 14:39 Blood Culture - Preliminary Blood NEGATIVE TO DATE 07/29/24 14:09 Blood Culture - Preliminary Blood Staphylococcus epidermidis A&P Assessment and plan (1) Sepsis: Present on admission SIRS: Tachycardic, Febrile, Leukocytosis Source: UTI/pyelonephritis End organ damage: Acute metabolic encephalopathy, hyponatremia Lactic acid within normal limits Patient did not receive full 30 mL/kg BW as patient was not hypotensive. NS at 75 cc/h for now. Blood culture 1 out of 4 bottles positive for Staph epidermidis from admission. Concerns for contamination. Repeat blood culture. Follow-up urine culture, trend procalcitonin Keep mean artery pressure 65 mmHg. Continue with IV ceftriaxone. For now we will add vancomycin till repeat blood cultures are negative. De-escalate antibiotics as per culture results. (2) Urinary tract infection: Treatment as above. Appreciate past culture history of UTI with E. coli which was pansensitive. Menendez catheterization. Plan to remove Menendez at the earliest. (3) Pyelonephritis: Seen on CT abdomen/pelvis. (4) Hyponatremia: Most likely in setting of poor oral intake. Continue with normal saline at 75 cc/h. Monitor BMP daily. (5) Hypokalemia: Replete 120 mEq of oral potassium. (6) Generalized anxiety disorder: Continue with home dose of Effexor, Seroquel, clonazepam as needed. (7) Bipolar 2 disorder: (8) Cerebral hemorrhage with hemiparesis: Past history. Follows up with neurology. SCD for DVT prophylaxis (9) Benign hypertension: Goal blood pressure less than 140/90 mmHg with mean over 65. Blood pressure slightly soft today. For now hold off on home dose of losartan and amlodipine. Plan Full code Regular diet SCD for DVT prophylaxis. Not on medical prophylaxis given history of recent hemorrhagic stroke. Protonix for PUD prophylaxis. Plan for the day: Appreciate urine cultures growing E. coli. Sensitivities appreciated. Continue with IV ceftriaxone. Blood culture from admission 1 out of 4 bottles positive for Staph epidermidis. Most likely contaminant. Follow-up repeat blood cultures. As urine culture is growing only E. coli for now we will discontinue vancomycin while we monitor the repeat blood culture sent on 07/30. Continue with oral diet. Holding off on antihypertensive given borderline blood pressure which are improving now. Will restart antihypertensive with goal of blood pressure less than 140/90 mmhg 14-year-old with which would mean over 65. Attestations 2 Medical Necessity Statement*: Requires further hospitalization for management of sepsis in setting of pyelonephritis/UTI, possible staff epidermidis bacteremia. Diagnoses Sepsis A41.9 Urinary tract infection N39.0 Pyelonephritis N12 Hyponatremia E87.1 Hypokalemia E87.6 Generalized anxiety disorder F41.1 Bipolar 2 disorder F31.81 Cerebral hemorrhage with hemiparesis I61.9; G81.90 Benign hypertension I10
[2024-07-31] MEDS: cefTRIAXone 1,000 mg SDV 1000 MG IVP (14:19)
[2024-07-31] MEDS: acetaminophen 325 mg Tablet 650 MG PO (20:54)
[2024-07-31] MEDS: quetiapine 25 mg Tablet 50 MG PO (20:54)
[2024-08-01] VITALS: BP 105/64; PULSE 54; RESP 18; TEMP 37.1; O2SAT 93
[2024-08-01] MEDS: sodium chloride 0.9% 1,000 ML 75 ML IV (00:40)
[2024-08-01 04:00] VITALS: BP 119/77; PULSE 60; RESP 17; TEMP 36.8; O2SAT 93
[2024-08-01 04:25] LABS: Basophils % 0.7 %; Eosinophils # 0.1 10^3/uL (0.0-0.8); Eosinophils % 2.3 %; Hematocrit 32.2 % (36-47); Lymphocytes # 2.3 10^3/uL (0.8-4.8); Lymphocytes % 41.1 %; Mean Corpuscular HGB Conc 32.6 g/dL (30-55); Mean Corpuscular Volume 85.9 fl (85-98); Mean Platelet Volume 9.4 fL (7.4-10.4); Monocytes # 0.6 10^3/uL (0.2-0.9); Monocytes % 10.9 %; Neutrophils # 2.54 10^3/uL (1.8-7.7); Neutrophils % 44.8 %; Nucleated Red Blood Cells % 0 %; Platelet Count 220 10^3/cmm (157-399); Red Blood Count 3.75 10^6/uL (3.85-5.65); Red Cell Distribution Width 13.7 % (12.1-15.1); White Blood Count 5.67 10^3/uL (3.29-11.43)
[2024-08-01 04:44] LABS: Alanine Aminotransferase 27 U/L (0-33); Alkaline Phosphatase 77 U/L (35-105); Anion Gap 13.8 (5-19); Aspartate Amino Transferase 32 U/L (0-32); Blood Urea Nitrogen 5 mg/dL (8-23); Calcium 8.1 mg/dL (8.5-10.5); Carbon Dioxide 23 mmol/L (22-29); Chloride 106 mmol/L (98-107); Creatinine Clr Calc Pharmacy 54.2509; Globulin 2.9 g/dL (1.3-4.6); Glucose 102 mg/dL (65-115); Osmolality Calculated 285 mOsm/kg (285-295); Potassium 3.8 mmol/L (3.5-5.1); Sodium 139 mmol/L (136-145); Total Bilirubin 0.4 mg/dL (0.15-1.2); Total Protein 5.9 g/dL (6.6-8.7)
[2024-08-01 05:18] VITALS: PULSE 62
[2024-08-01 07:13] VITALS: BP 118/71; PULSE 57; RESP 16; TEMP 36.9; O2SAT 92
[2024-08-01] MEDS: venlafaxine ER (24HR) 37.5 mg Capsule PO (08:10)
[2024-08-01] MEDS: CLONazepam 1 mg Tablet PO ×2 (08:10→17:05)
[2024-08-01] MEDS: pantoprazole DR 40 mg Tablet PO (08:10)
--- NOTE | 2024-08-01 09:43 | PC.CHAP ---
Pastoral Care Encounter/Spiritual Assessment Type of Contact [] Declined security nurse visit [] Patient/Family/Request visit [] Outpatient visit [] Follow-up visit [] Physician referral [] Code/Alert [x] Routine visit [] Staff referral [] Actively dying [] Patient sleeping [] Family support [] [] Out of room [] Palliative care [] [] Receiving care in room [] Pre-surgical visit [] Trauma [] Long length of stay [] ICU visit [] Other: Relational/Emotional Strength [] Patient feels connected with others/family/visitors/staff [] Distress [] Loneliness/isolation [] Abandonment Spirituality of Patient [x] Person of Jada [] Attends Faith of their Jada [x] Believes in Prayer [] Reads Bible or Christianity materials [] There are Spiritual issues to be addressed Electrical [employer] Interventions [x] Prayer [x] Active listening [] Non-anxious presence [] Spiritual/emotional support [] Crisis/trauma care [] Spiritual counseling [] Bereavement support [] Provided bereavement packet [x] Provided Bible/devotional materials [] Provided toy/stuffed animal, coloring book to patient or family member [] Provided Communion [] Anointing/[place] [] Salvation [x] Completed spiritual assessment [] Other: Impact on Illness or Injury [] Angry [] Fearful [] Anxious [] Often cries [] Exhaustion [] Unable to work [] Unable to attend taoist [] Unable to walk/stand [] Unable to read [] Unable to drive [] Unable to eat/drink [] Unable to sleep [] Unable to be with family [] Patient intubated [] Other: Summary Time spent with patient 30 min
[2024-08-01 11:53] VITALS: BP 125/71; PULSE 66; RESP 15; TEMP 36.7; O2SAT 95
--- NOTE | 2024-08-01 12:00 | P.DS_ITS ---
Discharge Providers Date of Admission: 07/29/24 17:06 Date of Discharge: August 01, 2024 Attending Provider at Admission: Temi Reza MD Attending Provider at Discharge: Randy Zhu DO Primary Care Provider: Shania Robledo Diagnoses at Discharge Discharge Diagnosis (1) Sepsis: Status: Acute (2) Urinary tract infection: Status: Acute (3) Pyelonephritis: Status: Acute (4) Hyponatremia: Status: Acute (5) Hypokalemia: Status: Acute (6) Generalized anxiety disorder: Status: Chronic (7) Bipolar 2 disorder: Status: Chronic (8) Cerebral hemorrhage with hemiparesis: Status: Acute (9) Benign hypertension: Status: Acute Reason for Visit Reason for Visit: UTI Cant keep anything down Brief History: Patient presented with difficulty urinating abdominal pain and nausea. She was found to have UTI and was admitted Hospital Course Hospital Course Patient was placed on IV antibiotics. A CT scan showed some right pericolonic stranding consistent with pyelonephritis. Cultures showed urine with E. coli blood cultures were negative. On the day of discharge patient was afebrile with a normal white count and less than admission. She was changed to Cipro p.o. twice daily for the remaining 7-day course. Please note the cultures showed pansensitive to all antibiotics tested. Patient discharged in stable and improved condition Physical Exam Narrative: Patient appears her stated age of 74. She is alert and oriented to person place time and situation. Heart is regular normal S1-S2 without murmurs clicks gallops or rubs. Lungs clear to auscultation without wheezes rales or rhonchi. Abdomen soft nontender nondistended positive bowel sounds no hepatosplenomegaly. Extremities no clubbing cyanosis edema Urinary Catheter Management: Menendez: Cath Placed During This Visit: yes Reason for Continuing Indwelling Catheter: Acute Urinary Retention or Obstruction Urinary Catheter Date of Insertion: 07/29/24 Urinary Catheter Time of Insertion: 19:35 Discharge Data Studies Completed and Pending Completed Studies During Hospitalization Category Date Time Status CT kidney stone 00041 Stat Cat Scan 07/29/24 13:51 Completed Pending at discharge Category Date Time Status Blood Culture Stat Lab 07/29/24 14:39 Results Blood Culture Stat Lab 07/30/24 11:14 Results Radiology Impressions Abdomen/Pelvis CT 07/29/24 13:51 IMPRESSION: There is significant asymmetric right perinephric stranding with no interval radiopaque obstructive calculus or hydronephrosis suggestive urinary tract inflammation, pyelonephritis. Laboratory Results WBC 5.67 10^3/uL (3.29-11.43) 08/01/24 04:12 RBC 3.75 10^6/uL (3.85-5.65) L 08/01/24 04:12 Hgb 10.50 g/dL (11.27-16.99) L 08/01/24 04:12 Hct 32.2 % (36-47) L 08/01/24 04:12 MCV 85.9 fl (85-98) 08/01/24 04:12 MCH 28.0 pg (27-33) 08/01/24 04:12 MCHC 32.6 g/dL (30-55) 08/01/24 04:12 RDW 13.7 % (12.1-15.1) 08/01/24 04:12 Plt Count 220 10^3/cmm (157-399) D 08/01/24 04:12 MPV 9.4 fL (7.4-10.4) 08/01/24 04:12 Neut % (Auto) 44.8 % 08/01/24 04:12 Lymph % (Auto) 41.1 % 08/01/24 04:12 [place] % (Auto) 10.9 % 08/01/24 04:12 Eos % (Auto) 2.3 % 08/01/24 04:12 Baso % (Auto) 0.7 % 08/01/24 04:12 Neut # (Auto) 2.54 10^3/uL (1.8-7.7) 08/01/24 04:12 Lymph # (Auto) 2.3 10^3/uL (0.8-4.8) 08/01/24 04:12 [place] # (Auto) 0.6 10^3/uL (0.2-0.9) 08/01/24 04:12 Eos # (Auto) 0.1 10^3/uL (0.0-0.8) 08/01/24 04:12 Baso # (Auto) 0.0 10^3/uL (0.0-0.1) 08/01/24 04:12 Nucleated RBC % (auto) 0 % 08/01/24 04:12 Nucleated RBCs # 0.0 /100WBC 08/01/24 04:12 Sodium 139 mmol/L (136-145) 08/01/24 04:12 Potassium 3.8 mmol/L (3.5-5.1) 08/01/24 04:12 Chloride 106 mmol/L (98-107) 08/01/24 04:12 Carbon Dioxide 23 mmol/L (22-29) 08/01/24 04:12 Anion Gap 13.8 (5-19) 08/01/24 04:12 BUN 5 mg/dL (8-23) L 08/01/24 04:12 Creatinine 0.5 mg/dL (0.5-0.9) 08/01/24 04:12 GFR Calculation Not Reportable 08/01/24 04:12 Glucose 102 mg/dL (65-115) 08/01/24 04:12 Calculated Osmolality 285 mOsm/kg (285-295) 08/01/24 04:12 Lactic Acid 1.3 mmol/L (0.5-2.2) 07/29/24 14:09 Calcium 8.1 mg/dL (8.5-10.5) L 08/01/24 04:12 Total Bilirubin 0.4 mg/dL (0.15-1.2) 08/01/24 04:12 AST 32 U/L (0-32) 08/01/24 04:12 ALT 27 U/L (0-33) 08/01/24 04:12 Alkaline Phosphatase 77 U/L (35-105) 08/01/24 04:12 Total Protein 5.9 g/dL (6.6-8.7) L 08/01/24 04:12 Albumin 3.0 g/dL (3.5-5.2) L 08/01/24 04:12 Globulin 2.9 g/dL (1.3-4.6) 08/01/24 04:12 Urine Color Yellow (Yellow) 07/29/24 14:21 Urine Appearance Turbid (CLEAR) A 07/29/24 14:21 Urine pH 5.5 (5-7) 07/29/24 14:21 Ur Specific Rankin 1.019 (1.005-1.030) 07/29/24 14:21 Urine Protein 2+ (Negative) A 07/29/24 14:21 Urine Glucose (UA) Negative (Normal) 07/29/24 14:21 Urine Ketones Negative (Negative) 07/29/24 14:21 Urine Blood 2+ (Negative) A 07/29/24 14:21 Urine Nitrate Positive (Negative) A 07/29/24 14:21 Urine Bilirubin Negative (Negative) 07/29/24 14:21 Urine Urobilinogen 0.2 mg/dL (Negative) 07/29/24 14:21 Ur Leukocyte Esterase 2+ (Negative) A 07/29/24 14:21 Urine RBC 6-10 /hpf (0-2) 07/29/24 14:21 Urine WBC >100 /hpf (0-5) H 07/29/24 14:21 Ur Squamous Epith Cells 0-5 /hpf (0-5) 07/29/24 14:21 Amorphous Sediment Not Reportable 07/29/24 14:21 Urine Bacteria Exceeds /hpf (NONE) 07/29/24 14:21 Hyaline Casts 31.43 /lpf 07/29/24 14:21 Vitals Last Vital Signs Temp 98.4 F 08/01/24 07:13 Pulse 57 L 08/01/24 07:13 Resp 16 08/01/24 07:13 BP 118/71 08/01/24 07:13 Pulse Ox 92 08/01/24 07:13 O2 Del Method Room Air 08/01/24 07:13 Discharge Plan Discharge Patient Disposition: Home Condition: Stable Prescriptions: New ciprofloxacin HCl 500 mg Tablet 500 mg PO BID@0900,2100 Qty: 11 0RF Continued losartan 100 mg tablet 100 mg PO DAILY amlodipine 10 mg tablet 10 mg PO DAILY venlafaxine 37.5 mg capsule,extended release 24hr 37.5 mg PO DAILY clonazepam 1 mg tablet 1 mg PO BID quetiapine 50 mg tablet 50 mg PO QPM atorvastatin 80 mg tablet 80 mg PO QPM lisinopril 40 mg tablet 40 mg PO DAILY Discharge Orders: Discharge Order (Routine); Ordered 08/01/24 Ordered By: Randy Zhu Referrals: Shania Robledo, STEEL CRANE OPERATOR [Primary Care Provider] - Discharge Diet: Advance as tolerated Discharge Activity: Increase activity as tolerated Discharge Attestations Time Spent in Discharge Care*: less than 30 min Quality Metrics Clinical Quality Measures [ No reported AMI, CVA or VTE this stay] Coding Level of Care Code Acute Code for Chg Fwd Diagnoses Sepsis A41.9 Urinary tract infection N39.0 Pyelonephritis N12 Hyponatremia E87.1 Hypokalemia E87.6 Generalized anxiety disorder F41.1 Bipolar 2 disorder F31.81 Cerebral hemorrhage with hemiparesis I61.9; G81.90 Benign hypertension I10
[2024-08-01] MEDS: ciprofloxacin 500 mg Tablet PO (12:14)
--- NOTE | 2024-08-01 12:28 | PC.SOCIAL ---
IMM Update pg 2 of IMM Updated and reviewed w/ patient. Copy provided and copy dated, initialed and placed in chart.
--- NOTE | 2024-08-01 14:00 | PC.NURSE ---
D/c pending medicaid ride.
[2024-08-01 15:02] VITALS: BP 118/72; PULSE 64; RESP 15; TEMP 36.7; O2SAT 96
== END 2024-08-01 18:12 | disposition home or self-care (01) | DRG 872 ==
LOC: ER 13:55 → MEDSURG 17:06
PROVIDERS: Student in an Organized Health Care Education/Training Program; Admitting Provider Student in an Organized Health Care Education/Training Program; Emergency Provider Family Medicine; PCP Nurse Practitioner Family; Visit Provider Internal Medicine
DX: A41.9 Sepsis, unspecified organism (principal); N10 Acute pyelonephritis; E87.1 Hypo-osmolality and hyponatremia; F31.81 Bipolar II disorder; E87.6 Hypokalemia; F41.1 Generalized anxiety disorder; Z86.73 Personal history of transient ischemic attack (TIA), and cerebral infarction without residual deficits; I10 Essential (primary) hypertension; B96.20 Unspecified Escherichia coli [E. coli] as the cause of diseases classified elsewhere
CPT/HCPCS: 36415; 51702; 51798; 74176; 80053; 81001; 83605; 85025; 87040; 87077; 87086; 87150; 87186; 87205; 96374; 99285; J0696; J2405; J3370; J3372; J7030

== ENCOUNTER → 2024-08-23 15:02 | Outpatient (BNVA) | payer MEDICARE, MEDICAID, SELFPAY | PROVIDERS: PCP Nurse Practitioner Family; Visit Provider Psychiatry & Neurology Neurology | DX: I61.9 Nontraumatic intracerebral hemorrhage, unspecified (principal); I63.9 Cerebral infarction, unspecified; G40.109 Localization-related (focal) (partial) symptomatic epilepsy and epileptic syndromes with simple partial seizures, not intractable, without status epilepticus | CPT/HCPCS: 99212 ==

== ENCOUNTER 2025-01-29 13:17 | Emergency (ER) | payer MEDICARE, MEDICAID, SELFPAY ==
[2025-01-29 13:18] VITALS: BP 158/114; PULSE 85; RESP 21; TEMP 36.7; O2SAT 96; BMI 23.6
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
--- OUTSIDE RECORDS SUMMARY | 2025-01-29 13:19 | XMS_ITS | Clinical Summary ---
Author Organization [facility] Address [address] Attn: [place] [address] Care Team Providers Care Scientific Informatics Analyst Name Role Phone Unavailable Primary Care Provider Unavailabl e Allergies No known active allergies Medications HYDROcodone-erika taminophen (NORCO) 5-325 mg tablet Take 1 Tablet by mouth every 8 hours as needed for Pain, Moderate. Max Daily Amount: 3 Tablets 10 Tablet None 11/07/2016 Active promethazine (PHENERGAN) 12.5 mg Tablet Take 1 Tablet (12.5 mg) by mouth every 8 hours as needed for Nausea/Emesi s. 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 Gender Identity Not on file Sexual Orientation Not on file Last Filed Vital Signs Vital Sign Reading Time Taken Comments Blood Pressure 100/65 11/07/2016 7:25 PM CDT Pulse 75 11/07/2016 7:25 PM CDT Temperature 36.3 C (97.4 F) 11/07/2016 3:50 PM CDT Respiratory Rate 16 11/07/2016 7:25 PM CDT Oxygen Saturation - - Inhaled Oxygen Concentration - - Weight 55.8 kg (123 lb) 11/07/2016 3:50 PM CDT Height 157.5 cm (5' 2 ) 11/07/2016 3:50 PM CDT Body Mass Index 22.5 11/07/2016 3:50 PM CDT Plan of Treatment Health Maintenance Due Date Last Done Comments DTAP/TDAP/TD VACCINES (1 - Tdap) 1971 BREAST CANCER SCREENING 1992 COLORECTAL SCREENING 1997 Colorectal Cancer Screening 1997 FIT-DNA Q 3 years 1997 FIT/FOBT Q 1 year 1997 Flex Sig/CT Colonography Q 5 years 1997 PNEUMOCOCCAL VACCINE 50+ YEARS (1 of 1 - PCV) 04/14/20 02 ZOSTER VACCINE (1 of 2) 2002 OSTEOPOROSIS SCREENING 2017 INFLUENZA VACCINE (#1) 2025 RSV VACCINE (60+ or ) (1 - 1-dose 75+ series) 2027
--- OUTSIDE RECORDS SUMMARY | 2025-01-29 13:19 | XMS_ITS | Clinical Summary ---
Author Organization [facility] Address [address] [place] [address] Phone Care Team Providers Care Title Curative Specialist Name Role Phone Unavailable Primary Care Provider [...] as needed for Nausea/Emesi s. 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 Gender Identity Not on file Sexual Orientation Not on file Last Filed Vital Signs Vital Sign Reading Time Taken Comments Blood Pressure 100/65 11/07/2016 7:25 PM CDT Pulse 75 11/07/2016 7:25 PM CDT Temperature 36.3 C (97.4 F) 11/07/2016 3:50 PM CDT Respiratory Rate 16 11/07/2016 7:25 PM CDT Oxygen Saturation 95% 11/07/2016 7:25 PM CDT Inhaled Oxygen Concentration - - Weight 55.8 [...] ) (1 - 1-dose 75+ series) 2027 [place] / Payer (Ef fective 2016-Present) Name:Kisha Villalobos Relation to Subscriber:Self Name:Kisha Villalobos Payer ID:[id number] Group ID:Not on file Type:Medicaid Address: [address]
--- OUTSIDE RECORDS SUMMARY | 2025-01-29 13:19 | XMS_ITS ---
Author Organization [facility] Care Team Providers Care Client Success Director Name Role Phone Eula Weaver Unavailable Unavailable Venkata Chen Unavailable Unavailable Amara Russell Unavailable Unavailable Laurel Chen Unavailable Unavailable Jean Paul Mcpherson Unavailable Unavailable Allergies and adverse reactions Code CodeSystem Substance Reaction Severity StartDate Concern Status 007839321 SNOMED CT Lactose Unknown 06/19/2023 active Care Team Name Role Address Phone Organization Dates Laurel Chen [facility] [address] [place], [address], [place] (Office): : [facility] 06/19/2023 - 07/18/2023 Eula Weaver [address] [facility] [place] [address], [address], [place] (Office): [facility] 06/19/2023 - 07/18/2023 Venkata Chen [address] [place], [address], [place] (Office): : [facility] 06/19/2023 - 07/18/2023 Amara Russell [address], [address], [place] (Office): : [facility] 06/19/2023 - 07/18/2023 eJan Paul Mcpherson [address] [address], [place], [address], [facility] (Office): : [facility] 06/19/2023 - 07/18/2023 Mental Status Section Date Assessment Total Score Description 07/18/2023 BIMS 14 cognitively int act CAM 0 No delirium ind icated PHQ-9 00 06/25/2023 BIMS 10 moderate cognit uriel impairment CAM 2 Delirium indica ailyn PHQ-9 00 Problems Problem # Description Date of onset Resolved Date Code CodeSystem Concern Status 1 CONSTIPATION, UNSPECIFIED [address] active 2 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 3 COGNITIVE COMMUNICATION DEFICIT [address] active 4 DYSPHAGIA, OROPHARYNGEAL PHASE [address] active 5 ESSENTIAL (PRIMARY) HYPERTENSION [address] active 6 NONTRAUMATIC INTRACEREBRAL HEMORRHAGE, UNSPECIFIED [address] active 7 OTHER MUSCLE SPASM [address] active 8 OTHER REDUCED MOBILITY [address] active 9 OTHER SPECIFIED HEALTH STATUS [address] active 10 PERSONAL HISTORY OF OTHER DISEASES OF THE NERVOUS SYSTEM AND SENSE ORGANS [address] active 11 PERSONAL HISTORY OF OTHER MENTAL AND BEHAVIORAL DISORDERS [address] active 12 RETENTION OF URINE, UNSPECIFIED [address] active [address] WEAKNESS [address] active Reason for Referral No Reasons for Referral Entered Social History Social History Observation Description Start Date End Date Code Code System Current Smoking Status Tobacco smoking consumption unknown 844498144 SNOMED CT Sex Assigned At Female 1950 [address]-5 [facility] Gender Identity Vital Signs Code Code System Vitals Name Values and Units Timing Information 9279-1 [facility] Respiratory Rate Value=16.0 Units=/m in 07/18/2023 8462-4 [facility] Blood Pressure-Diastolic Value=64 Un its=mmHg 07/18/2023 8480-6 [facility] Blood Pressure-Systolic Wkzuz=969 Un its=mmHg 07/18/2023 8310-5 [facility] Body Temperature Value=97.9 Units= F 07/18/2023 8867-4 [facility] Heart rate Value=72.0 Units=/min 12692-3 [facility] O2 % BldC Oximetry Value=93.0 Units= % 07/18/2023 39364-2 [facility] Pain Level Value=0.0 07/15/2023 86448-0 [facility] Weight Yjemz=312.0 Units=Lbs 02/2023
--- OUTSIDE RECORDS SUMMARY | 2025-01-29 13:19 | XMS_ITS | Encounter Summary ---
Author Organization [facility] Address [address] [place] [address] Care Team Providers Care Data Transcriber Name Role Phone Unavailable Primary Care Provider Unavailabl e Encounter Details Date Type Department Care Team (Latest Contact Info) Description 06/24/1999 Outpatient Historical [facility] General and Trauma Surgery-[address] [place] [address] Dorie Waddell MD NO ADDRESS ON FILE Liver laceration, minor, without mention of open wound into cavity (Primary Dx) Social History Tobacco Use Types Packs/Day Years Used Date Smoking Tobacco: Never Assessed Comments Unknown Sex and Gender Information Value Date Recorded Sex Assigned at Not on file 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
--- NOTE | 2025-01-29 13:37 | W.ED.ABDPA2 ---
HPI - Abdominal Pain General: Chief Complaint: Abdominal Pain Stated Complaint: abd pain Time Seen by Provider: 01/29/25 13:20 History of Present Illness: 74-year-old female with a history of anxiety, bipolar disorder, hemorrhagic stroke, hypertension, hyperlipidemia who presents to the emergency room by ambulance with abdominal pain. She said she was diagnosed with UTI yesterday.She says the pain started about a week ago but became much worse today. She said she was having epigastric pain but now has developed low abdominal pain. She is extremely anxious and tearful. She says someone told her not to take her anxiety medicine today. She has had some nausea but no vomiting. No known fevers. No diarrhea. Related Data Home Medications ?Medication ?Instructions ?Recorded ?Confirmed amlodipine 10 mg tablet 10 mg PO DAILY 07/19/23 01/29/25 clonazepam 1 mg tablet 1 mg PO BID PRN Anxiety 07/29/24 01/29/25 quetiapine 50 mg tablet 50 mg PO QPM 07/29/24 01/29/25 venlafaxine 37.5 mg 37.5 mg PO DAILY 07/29/24 01/29/25 capsule,extended release 24 hr atorvastatin 80 mg tablet 80 mg PO QPM 07/30/24 01/29/25 venlafaxine 75 mg capsule,extended 75 mg PO .QOD 01/29/25 01/29/25 release 24 hr Previous Rx's ?Medication ?Instructions ?Recorded ciprofloxacin HCl 500 mg tablet 500 mg PO BID@0900,2100 #11 tabs 08/01/24 cefdinir 300 mg capsule 300 mg PO BID 7 days #14 caps 01/29/25 ondansetron 4 mg disintegrating 4 mg PO Q8H PRN nausea and 01/29/25 tablet vomiting #10 tabs Allergies Allergy/AdvReac Type Severity Reaction Status Date / Time divalproex sodium (From Allergy Mild ADR-Confusi Verified 08/23/24 15:03 Depakote) on aripiprazole (From Abilify) Allergy ADR-Irritab Verified 08/23/24 15:03 le lisinopril Allergy ADR-Cough Verified 01/29/25 13:31 lithium Allergy Unknown Verified 08/23/24 15:03 losartan Allergy Unknown Verified 01/29/25 13:31 quetiapine (From Seroquel) Allergy ADR-Halluci Verified 01/29/25 13:30 nating vilazodone (From Viibryd) Allergy Unknown Verified 08/23/24 15:03 Review of Systems Narrative: Constitutional symptoms: Negative except as documented in HPI. Skin symptoms: Negative except as documented in HPI. Eye symptoms: Negative except as documented in HPI. ENMT symptoms: Negative except as documented in HPI. Respiratory symptoms: Negative except as documented in HPI. Cardiovascular symptoms: Negative except as documented in HPI. Gastrointestinal symptoms: Negative except as documented in HPI. Genitourinary symptoms: Negative except as documented in HPI. Musculoskeletal symptoms: Negative except as documented in HPI. Neurologic symptoms: Negative except as documented in HPI. Psychiatric symptoms: Negative except as documented in HPI. Endocrine symptoms: Negative except as documented in HPI. PFSH ED PFSH: Medical History (Updated 01/29/25 @ 17:24 by Jyoti Morgan MD) Sepsis Cataract (lens) fragments in eye following cataract surgery, bilateral Benign hypertension Cerebral hemorrhage with hemiparesis Cystocele with third degree uterine prolapse Bipolar 2 disorder Generalized anxiety disorder Psychiatric care Family History Mother Heart disease Stroke Hypertension Hyperlipidemia Denies family history of Colon cancer Ovarian cancer Breast cancer Uterine cancer Thyroid disease Social History Smoking and tobacco/nicotine status: never used tobacco/nicotine Alcohol intake: never Substance/Drug Use: never Lives independently: Yes Household members: significant other Physical Exam Narrative: EXAM NARRATIVE: General: Alert, no acute distress. Skin: Warm, dry. Head: Normocephalic, atraumatic. Neck: Supple, trachea midline. Eye: Extraocular movements are intact. Ears, nose, mouth and throat: mucosa moist. Cardiovascular: Regular, Normal peripheral perfusion. Respiratory: Lungs are clear to auscultation, respirations are non-labored, breath sounds are equal, Symmetrical chest wall expansion. Gastrointestinal: Soft, epigastric tenderness, Non distended Musculoskeletal: Normal ROM, no deformity. Neurological: Alert and oriented, No focal neurological deficit observed. Psychiatric: Cooperative, patient is anxious and tearful Course Vital Signs: Vital signs: Vital Signs Temperature 98.1 F 01/29/25 13:18 Pulse Rate 84 01/29/25 16:04 Respiratory Rate 16 01/29/25 16:04 Blood Pressure 139/90 01/29/25 16:04 Pulse Oximetry 91 01/29/25 16:04 Oxygen Delivery Me thod Room Air 01/29/25 16:04 MDM - Abdominal Pain Medical Decision Making Medical decision making: Differential diagnosis including but not limited to and based on the above HPI, review of systems and physical exam: In this patient with epigastric pain differential would include cholelithiasis or cholecystitis. Hepatitis. Diverticulitis. Constipation. UTI. colitis. small bowel obstruction. crohn's flare. pancreatitis. gastritis. peptic ulcer. also concern for acute cardiac event. Orders placed to evaluate differential diagnosis based on the above differential, HPI and physical exam Lab Review: Laboratory results were reviewed and interpreted by myself the emergency room physician. No leukocytosis. No anemia. No renal failure. Urine is 4+ bacteria with nitrate positive. There is only a few whites but believe this is an actual infection. Possibly only partially treated with Cipro. I do not have any culture reports some going to change her to cephalosporin. CT of the abdomen pelvis: Nothing acute. There was some concern for right sided pelvic gonadal vein defect, however the patient does not have any pain in her right pelvic area. This was reviewed and interpreted by myself the emergency room physician. I also reviewed the radiology report. I reviewed the patient's medical record. Reexamination: Patient remained stable. No increased work of breathing. No altered mental status. No focal motor deficits. Assessment and plan: Urinary tract infection Anxiety ? IV Rocephin and IV Ativan in the emergency room - Discharged home - Discussed plan with patient. Answered any questions. - Evaluation and treatment of this problem were appropriate in the emergency setting. Lab Data 01/29/25 14:08 01/29/25 14:08 Labs/Radiology: Radiology Impressions Abdomen/Pelvis CT 01/29/25 14:42 IMPRESSION: 1. Low-density filling defect in the right gonadal vein, which could represent partial thrombosis or contrast flow related artifact. Follow-up contrast-enhanced abdomen pelvis CT with delayed images is recommended to exclude partial gonadal vein thrombosis, especially if symptoms are referable to the right pelvis. 2. No other acute disease in the abdomen or pelvis. COMMENTS: Consistent with the [employer]'s Incidental Findings Committee white paper (J Am Patti Radiol 2018): Any incidental renal lesion less than 1 cm or classified as too small to characterize, or any incidental cystic renal lesion characterized as simple-appearing, is likely benign. No follow-up imaging is recommended for these lesions per consensus recommendations based on imaging criteria. Laboratory Results WBC 5.27 10^3/uL (3.29-11.43) 01/29/25 14:08 RBC 5.52 10^6/uL (3.85-5.65) 01/29/25 14:08 Hgb 15.60 g/dL (11.27-16.99) 01/29/25 14:08 Hct 47.2 % (36-47) H 01/29/25 14:08 MCV 85.5 fl (85-98) 01/29/25 14:08 MCH 28.3 pg (27-33) 01/29/25 14:08 MCHC 33.1 g/dL (30-55) 01/29/25 14:08 RDW 13.2 % (12.1-15.1) 01/29/25 14:08 Plt Count 290 10^3/cmm (157-399) 01/29/25 14:08 MPV 9.1 fL (7.4-10.4) 01/29/25 14:08 Neut % (Auto) 41.8 % 01/29/25 14:08 Lymph % (Auto) 47.4 % 01/29/25 14:08 Nelson % (Auto) 7.6 % 01/29/25 14:08 Eos % (Auto) 2.1 % 01/29/25 14:08 Baso % (Auto) 0.9 % 01/29/25 14:08 Neut # (Auto) 2.20 10^3/uL (1.8-7.7) 01/29/25 14:08 Lymph # (Auto) 2.5 10^3/uL (0.8-4.8) 01/29/25 14:08 Nelson # (Auto) 0.4 10^3/uL (0.2-0.9) 01/29/25 14:08 Eos # (Auto) 0.1 10^3/uL (0.0-0.8) 01/29/25 14:08 Baso # (Auto) 0.1 10^3/uL (0.0-0.1) 01/29/25 14:08 Nucleated RBC % (auto) 0 % 01/29/25 14:08 Nucleated RBCs # 0.0 /100WBC 01/29/25 14:08 Sodium 140 mmol/L (136-145) 01/29/25 14:08 Potassium 3.6 mmol/L (3.5-5.1) 01/29/25 14:08 Chloride 104 mmol/L (98-107) 01/29/25 14:08 Carbon Dioxide 21 mmol/L (22-29) L 01/29/25 14:08 Anion Gap 18.6 (5-19) 01/29/25 14:08 BUN 10 mg/dL (8-23) 01/29/25 14:08 Creatinine 0.7 mg/dL (0.5-0.9) 01/29/25 14:08 GFR Calculation Not Reportable 01/29/25 14:08 Glucose 115 mg/dL (65-115) 01/29/25 14:08 Calculated Osmolality 290 mOsm/kg (285-295) 01/29/25 14:08 Lactic Acid 1.3 mmol/L (0.5-2.2) 01/29/25 14:08 Calcium 9.3 mg/dL (8.5-10.5) 01/29/25 14:08 Total Bilirubin 0.4 mg/dL (0.15-1.2) 01/29/25 14:08 AST 16 U/L (0-32) 01/29/25 14:08 ALT 10 U/L (0-33) 01/29/25 14:08 Alkaline Phosphatase 98 U/L (35-105) 01/29/25 14:08 C-Reactive Protein 3.0 mg/L (0.0-4.9) 01/29/25 14:08 Total Protein 7.6 g/dL (6.6-8.7) 01/29/25 14:08 Albumin 4.2 g/dL (3.5-5.2) 01/29/25 14:08 Globulin 3.4 g/dL (1.3-4.6) 01/29/25 14:08 Lipase 25 U/L (13-60) 01/29/25 14:08 Urine Color Yellow (Yellow) 01/29/25 14:17 Urine Appearance Clear (CLEAR) 01/29/25 14:17 Urine pH 7.5 (5-7) 01/29/25 14:17 Ur Specific [place] 1.011 (1.005-1.030) 01/29/25 14:17 Urine Protein Negative (Negative) 01/29/25 14:17 Urine Glucose (UA) Negative (Normal) 01/29/25 14:17 Urine Ketones Negative (Negative) 01/29/25 14:17 Urine Blood Negative (Negative) 01/29/25 14:17 Urine Nitrate Positive (Negative) A 01/29/25 14:17 Urine Bilirubin Negative (Negative) 01/29/25 14:17 Urine Urobilinogen 0.2 mg/dL (Negative) 01/29/25 14:17 Ur Leukocyte Esterase Negative (Negative) 01/29/25 14:17 Urine RBC 0-2 /hpf (0-2) 01/29/25 14:17 Urine WBC 0-5 /hpf (0-5) 01/29/25 14:17 Ur Squamous Epith Cells 0-5 /hpf (0-5) 01/29/25 14:17 Amorphous Sediment Not Reportable 01/29/25 14:17 Urine Bacteria 4+ /hpf (NONE) H 01/29/25 14:17 Hyaline Casts 0-4 /lpf H 01/29/25 14:17 All radiology interpretation(s) finalized by discharge Discharge Plan Discharge Patient Disposition: Home Clinical Impression: Urinary tract infection Condition: Stable Prescriptions: New cefdinir 300 mg capsule 300 mg PO BID 7 Days Qty: 14 0RF ondansetron 4 mg tablet,disintegrating 4 mg PO Q8H PRN (Reason: nausea and vomiting) Qty: 10 0RF No Action amlodipine 10 mg tablet 10 mg PO DAILY venlafaxine 37.5 mg capsule,extended release 24hr 37.5 mg PO DAILY clonazepam 1 mg tablet 1 mg PO BID PRN (Reason: Anxiety) quetiapine 50 mg tablet 50 mg PO QPM atorvastatin 80 mg tablet 80 mg PO QPM ciprofloxacin HCl 500 mg Tablet 500 mg PO BID@0900,2100 Qty: 11 0RF venlafaxine 75 mg capsule,extended release 24hr 75 mg PO .QOD Discharge Orders: Discharge ED (Routine); Ordered 01/29/25 Ordered By: Jyoti Morgan Referrals: Shania Robledo, GALLERY OR MUSEUM ATTENDANT [Primary Care Provider, Nurse Practitioner] Discharge Diet: Usual diet Discharge Activity: Increase activity as tolerated Patient Instructions: Opioid Safety, Pain Management, Patient Portal & [place] Instructions Activity Restrictions/Additional Instructions: Stop Cipro and start Omnicef Thank you for choosing [facility] for your healthcare needs today. You have been screened and evaluated and felt safe for discharge. Health conditions do change or evolve sometimes and as such it is important that you follow up with your Primary Doctor to be re checked, 3-5 days is a general good time frame for follow up. You are always welcome to return to the ED for re assessment if your symptoms are worsening or you have new concerns Print Language: Citizen Of [place] Coding Level of Care Code ED Religious Ritual Slaughterer for Stefany Raza
[2025-01-29] MEDS: LORazepam 1 MG/0.5 ML injection IVP (14:08)
[2025-01-29 14:14] VITALS: BP 140/96; PULSE 84; RESP 22; O2SAT 96
[2025-01-29 14:16] LABS: Hematocrit 47.2 % (36-47); Hemoglobin 15.60 g/dL (11.27-16.99); Mean Corpuscular HGB Conc 33.1 g/dL (30-55); Mean Corpuscular Hemoglobin 28.3 pg (27-33); Mean Corpuscular Volume 85.5 fl (85-98); Nucleated Red Blood Cells % 0 %; Platelet Count 290 10^3/cmm (157-399); Red Blood Count 5.52 10^6/uL (3.85-5.65); White Blood Count 5.27 10^3/uL (3.29-11.43)
[2025-01-29 14:41] LABS: Alanine Aminotransferase 10 U/L (0-33); Albumin Level 4.2 g/dL (3.5-5.2); Alkaline Phosphatase 98 U/L (35-105); Anion Gap 18.6 (5-19); Aspartate Amino Transferase 16 U/L (0-32); Blood Urea Nitrogen 10 mg/dL (8-23); Calcium 9.3 mg/dL (8.5-10.5); Carbon Dioxide 21 mmol/L (22-29); Chloride 104 mmol/L (98-107); Creatinine Clr Calc Pharmacy 51.5379; Globulin 3.4 g/dL (1.3-4.6); Glucose 115 mg/dL (65-115); Lipase 25 U/L (13-60); Osmolality Calculated 290 mOsm/kg (285-295); Potassium 3.6 mmol/L (3.5-5.1); Sodium 140 mmol/L (136-145); Total Protein 7.6 g/dL (6.6-8.7)
[2025-01-29 14:42] LABS: Lactic Sepsis W/Reflex 1.3 mmol/L (0.5-2.2)
--- NOTE | 2025-01-29 14:42 | CTR_ITS ---
PROCEDURE INFORMATION: Exam: CT Abdomen And Pelvis With Contrast Exam date and time: 01/29/2025 3:24 PM Age: 74 years old Clinical indication: Abdominal pain; Generalized TECHNIQUE: Imaging protocol: Computed tomography of the abdomen and pelvis with contrast. Radiation optimization: All CT scans at this facility use at least one of these dose optimization techniques: automated exposure control; mA and/or kV adjustment per patient size (includes targeted exams where dose is matched to clinical indication); or iterative reconstruction. Contrast material: OMNIPAQUE 350; Contrast volume: 80 ml; Contrast route: INTRAVENOUS (IV); COMPARISON: 1. CT kidney stone [id number] 07/29/2024 2:[address] abdomen pelvis w con* [id number] 03/03/2023 4:11 PM RADIATION DOSE METRICS: Total DLP (mGy-cm): 383.67 FINDINGS: Lungs: Lung bases are unremarkable. Coronary arteries: Coronary artery calcifications are present Liver: Liver density is reduced, likely representing fatty infiltration. No liver mass Gallbladder and biliary ducts: The gallbladder is unremarkable. No biliary ductal dilatation. Pancreas: The pancreas is unremarkable. Spleen: The spleen is unremarkable. Adrenal glands: The adrenal glands are unremarkable. Kidneys and ureters: 12 mm and 8 mm round hypodensities in the lower pole of the left kidney are greater than water density, but are essentially unchanged from 03/03/2023. Cysts are likely. No hydronephrosis. Stomach and bowel: Bowel caliber is normal. Numerous diverticula are present in the sigmoid colon. No pericolonic inflammatory changes. Appendix: No evidence of appendicitis. Intraperitoneal space: No significant peritoneal free fluid. No free peritoneal air. Vasculature: Aortic caliber is normal. Lymph nodes: No lymph node enlargement. Urinary bladder: No focal wall thickening of the urinary bladder. Reproductive: Uterine calcifications are again noted. Uterus size is normal. Ovary size is normal. Low-density filling defect projects within the mildly distended right gonadal vein. No associated surrounding inflammatory changes. Bones/joints: Severe degenerative disc disease is again noted in the lower lumbar spine. No interval change in the osseous structures. Soft tissues: Unremarkable. CT/CT abdomen pelvis w con* [id number] IMPRESSION: 1. Low-density filling defect in the right gonadal vein, which could represent partial thrombosis or contrast flow related artifact. Follow-up contrast-enhanced abdomen pelvis CT with delayed images is recommended to exclude partial gonadal vein thrombosis, especially if symptoms are referable to the right pelvis. 2. No other acute disease in the abdomen or pelvis. COMMENTS: Consistent with the [employer]'s Incidental Findings Committee white paper (J Am Patti Radiol 2018): Any incidental renal lesion less than 1 cm or classified as too small to characterize, or any incidental cystic renal lesion characterized as simple-appearing, is likely benign. No follow-up imaging is recommended for these lesions per consensus recommendations based on imaging criteria.
[2025-01-29 14:46] LABS: Glucose Urine UA Negative (Normal); Nitrate Urine Positive (Negative); Specific Gravity, Urine 1.011 (1.005-1.030)
--- NOTE | 2025-01-29 15:09 | PC.PHAR ---
Pt states stopped Atorvastatin 80mg qpm, Linsinopril 40mg daily, Losartan 100mg daily, and Quetiapine 50mg qpm.
[2025-01-29] MEDS: iohexol 350 mg/mL 500 mL Btl (per mL) IV (15:26)
[2025-01-29] MEDS: cefTRIAXone 1,000 mg SDV 1000 MG IVP (15:34)
[2025-01-29 15:39] VITALS: BP 147/97; PULSE 77; RESP 18; O2SAT 97
[2025-01-29 16:04] VITALS: BP 139/90; PULSE 84; RESP 16; O2SAT 91
[2025-01-29 17:40] VITALS: BP 133/96; PULSE 83; O2SAT 95
== END 2025-01-29 17:44 | disposition home or self-care (01) ==
PROVIDERS: Emergency Provider Emergency Medicine; PCP Nurse Practitioner Family
DX: N39.0 Urinary tract infection, site not specified (principal); I10 Essential (primary) hypertension; E78.5 Hyperlipidemia, unspecified; F41.9 Anxiety disorder, unspecified; Z86.73 Personal history of transient ischemic attack (TIA), and cerebral infarction without residual deficits; Z79.899 Other long term (current) drug therapy; Z88.8 Allergy status to other drugs, medicaments and biological substances
CPT/HCPCS: 36415; 51701; 74177; 80053; 81001; 83605; 83690; 85025; 86140; 87040; 87077; 87086; 87186; 96374; 96375; 99285; J0696; J2060

== ENCOUNTER → 2025-02-21 13:11 | Outpatient (BNVA) | payer MEDICARE, MEDICAID, SELFPAY | PROVIDERS: PCP Electrodiagnostic Medicine; Visit Provider Psychiatry & Neurology Neurology | DX: I61.9 Nontraumatic intracerebral hemorrhage, unspecified (principal); I63.9 Cerebral infarction, unspecified; G40.109 Localization-related (focal) (partial) symptomatic epilepsy and epileptic syndromes with simple partial seizures, not intractable, without status epilepticus; G81.91 Hemiplegia, unspecified affecting right dominant side | CPT/HCPCS: 99212 ==

== ENCOUNTER → 2025-03-03 10:28 | Outpatient (BNVA) | payer MEDICARE, MEDICAID, SELFPAY | PROVIDERS: PCP Electrodiagnostic Medicine; Referring Provider Specialist; Visit Provider Specialist | DX: I63.9 Cerebral infarction, unspecified (principal); G40.109 Localization-related (focal) (partial) symptomatic epilepsy and epileptic syndromes with simple partial seizures, not intractable, without status epilepticus | CPT/HCPCS: 95816 ==

== ENCOUNTER → 2025-05-18 10:12 | Outpatient (BNVA) | payer MEDICARE, MEDICAID, SELFPAY | PROVIDERS: PCP Family Medicine; Visit Provider Family Medicine | DX: R39.9 Unspecified symptoms and signs involving the genitourinary system (principal) | CPT/HCPCS: 81000; 87086 ==

== ENCOUNTER 2025-06-05 15:05 | Emergency (ER) | payer MEDICARE, MEDICAID, SELFPAY ==
--- NOTE | 2025-06-05 15:17 | XR_ITS ---
WS: [id number] XR chest 1V portable [id number] REASON FOR EXAM: sob FINDINGS: The chest is unchanged compared to previous examination 09/18/2023. Mild tortuosity and ectasia of the ascending and descending thoracic aorta. Normal heart size. Calcified granulomatous disease bilaterally. No acute pulmonary parenchymal or pleural abnormality is identified. Mild degenerative spondylosis in the mid and lower thoracic spine. XR/XR chest 1V portable [id number] IMPRESSION: Stable chest without acute abnormality.
[2025-06-05 15:22] VITALS: BP 171/99; PULSE 103; RESP 17; TEMP 36.6; O2SAT 95; BMI 23.2
--- NOTE | 2025-06-05 15:28 | ECG_ITS ---
[facility] Test Date: 2025-06-05 Pat Name: Kisha Villalobos Department: Room: Gender: Female [employer] Software Engineer: : [id number] Requested By: Jyoti Adame Order Number: [id number] No MD: Sandie Martínez M.D. Measurements Intervals [place] Rate: 89 P: 77 NE: 152 QRS: 87 QRSD: 114 T: 64 QT: 379 QTc: 463 Interpretive Statements SINUS RHYTHM POSSIBLE RIGHT ATRIAL ENLARGEMENT [0.25mV P-WAVE] RIGHT BUNDLE BRANCH BLOCK [120+ ms QRS DURATION, UPRIGHT V1, 40+ ms S IN I/aVL/V4/V5/V6] Compared to ECG 10/14/2023 15:13:42 Right bundle-branch block now present Incomplete right bundle-branch block no longer present Electronically Signed On 06-07-2025 09:47:30 REFRACTORY SPECIALIST by Sandie Martínez M.D. [email or web address]
--- NOTE | 2025-06-05 15:46 | ED_ITS ---
HPI - Weakness 2 General: Chief complaint: Weakness Stated complaint: SOB pos blood clots in Lungs Time Seen by Provider: 06/05/25 15:44 History of Present Illness: 75-year-old female with a history of hem orrhagic stroke, focal motor seizures, .bipolar disorder, hypertension, anxiety, who presents to the emergency room from her PCPs office with concern for shortness of breath. She says that he wanted to make sure she did not have a blood clot or heart problems. She said she is been short of breath for a couple of days. No increased cough. No lower extremity swelling. No chest pain. Related Data Home Medications ?Medication ?Instructions ?Recorded ?Confirmed clonazepam 1 mg tablet 1 mg PO BID PRN Anxiety 07/2006/05/25 venlafaxine 37.5 mg 37.5 mg PO DAILY 07/29/24 capsule,extended release 24 hr venlafaxine 75 mg capsule,extended 75 mg PO .QOD 01/2906/05/25 release 24 hr d-mannose 500 mg capsule mg PO 05/18/25 06/05/25 omega 3-jdz-ahh-fish oil 300 1 cap PO DAILY 05/18/25 1 08/05/24 mg-1,000 mg capsule (Fish Oil) Previous Rx's ?Medication ?Instructions ?Recorded pantoprazole 40 mg tablet,delayed 40 mg PO BID 6 weeks #84 tabs 05/18/25 release (Protonix) sucralfate 1 gram tablet (Carafate) 1 g PO BID 6 weeks #84 tabs 05/18/25 cephalexin 500 mg tablet 500 mg PO TID 7 days #21 tab s 06/05/25 Allergies Allergy/AdvReac Type Severity Reaction Status Date / Time divalproex sodium (From Allergy Mild ADR-Confusi Verified 06/05/25 14:05 Depakote) on amlodipine Allergy Unknown Verified 06/05/25 14:05 aripiprazole (From Abilify) Allergy ADR-Irritab Verified 06/05/25 14:05 le lisinopril Allergy ADR-Cough Verified 06/05/25 14:05 lithium Allergy Unknown Verified 06/05/25 14:05 losartan Allergy Unknown Verified 06/05/25 14:05 quetiapine (From Seroquel) Allergy ADR-Halluci Verified 06/05/25 14:05 nating vilazodone (From Viibryd) Allergy Unknown Verified 06/05/25 14:05 Review of Systems 2 Narrative: Constitutional symptoms: Negative except as documented in HPI. Skin symptoms: Negative except as documented in HPI. Eye symptoms: Negative except as documented in HPI. ENMT symptoms: Negative except as documented in HPI. Respiratory symptoms: Negative except as documented in HPI. Cardiovascular symptoms: Negative except as documented in HPI. Gastrointestinal symptoms: Negative except as documented in HPI. Genitourinary symptoms: Negative except as documented in HPI. Musculoskeletal symptoms: Negative except as documented in HPI. Neurologic symptoms: Negative except as documented in HPI. Psychiatric symptoms: Negative except as documented in HPI. Endocrine symptoms: Negative except as documented in HPI. PFSH ED 2 PFSH: Medical History (Updated 06/05/25 @ 18:02 by Jyoti Morgan MD) Bipolar 1 disorder Benign hypertension FH: premature coronary heart disease Sepsis Cataract (lens) fragments in eye following cataract surgery, bilateral Cerebral hemorrhage with hemiparesis Cystocele with third degree uterine prolapse Bipolar 2 disorder Generalized anxiety disorder Family History Mother Heart disease Stroke Hypertension Hyperlipidemia Denies family history of Colon cancer Ovarian cancer Breast cancer Uterine cancer Thyroid disease Social History Smoking and tobacco/nicotine status: never used tobacco/nicotine Alcohol intake: never Substance/Drug Use: never Lives independently: Yes Household members: significant other Physical Exam 2 Narrative: EXAM NARRATIVE: General: Alert, no acute distress. Skin: Warm, dry. Head: Normocephalic, atraumatic. Neck: Supple, trachea midline. Eye: Extraocular movements are intact. Ears, nose, mouth and throat: mucosa moist. Cardiovascular: Regular, Normal peripheral perfusion. Respiratory: Lungs are clear to auscultation, respirations are non-labored, breath sounds are equal, Symmetrical chest wall expansion. Gastrointestinal: Soft, Nontender, Non distended Musculoskeletal: Normal ROM, no deformity. Neurological: Alert and oriented, No focal neurological deficit observed. Psychiatric: Cooperative, appropriate mood & affect. Course 2 Vital Signs: Vital signs: Vital Signs Temperature 97.9 F 06/05/25 15:22 Pulse Rate 91 06/05/25 18:42 Respiratory Rate 17 06/05/25 15:22 Blood Pressure 140/82 06/05/25 18:42 Pulse Oximetry 92 06/05/25 18:42 Oxygen Delivery Me thod Room Air 06/05/25 17:20 MDM - Weakness Medical Decision Making Medical decision making Patient's reason for coming to the emergency room: Dyspnea, concern for blood clots or heart problems Social determinants: Patient is , retired, accompanied by her daughter I reviewed the patient's medical record. 75-year-old female with a history of hemorrhagic stroke, focal motor seizures, .bipolar disorder, hypertension, anxiety, . I reviewed Dr. Mariee's note from clinic today. I reviewed the patient's current home meds Patient is not on any blood thinners. Alternate historians: None Differential diagnosis for patient with shortness of breath includes but is not limited to and based on the above HPI, review of systems and physical exam: Pneumonia. Bronchitis. Asthma or COPD with acute exacerbation. Acute coronary syndrome / [place]. Pulmonary embolism. Anxiety. Congestive heart failure. Viral infections including influenza and Covid-19. Atrial fibrillation. Anxiety. Pleural effusion. Pneumothorax. Orders placed to evaluate differential diagnosis based on the above differential, HPI and physical exam EKG: Time 1753. Rate 72. Normal sinus rhythm, No ST-T changes, no ectopy, right bundle branch block, This was reviewed and interpreted by myself the ER physician at 1758 Chest x-ray: No acute process. No infiltrate. No pneumothorax. This was reviewed and interpreted by myself the emergency room physician. I also reviewed the radiology report. Lab Review: Laboratory results were reviewed and interpreted by myself the emergency room physician. No leukocytosis. No anemia. No renal failure. Cardiac markers are 70 and 67 respectively. No significant change. This appears to be her baseline. Urinalysis does show signs of infection. Assessment of risk: Level of risk: Moderate risk patient. Multiple comorbidities. Hospitalization considerations: No indications for admission today. Reexamination: Patient remained stable. No increased work of breathing. No altered mental status. No focal motor deficits. Assessment and plan: Dyspnea Urinary tract infection Dehydration ?IV fluids and IV Rocephin in the emergency room - Discharged home - Discussed plan with patient. Answered any questions. - Evaluation and treatment of this problem were appropriate in the emergency setting. Lab Data 06/05/25 15:34 06/05/25 15:34 Radiology Impressions Chest X-Ray 06/05/25 15:17 IMPRESSION: Stable chest without acute abnormality. Chest CTA 06/05/25 16:21 IMPRESSION: Findings suspicious for early interstitial edema with small left-sided pleural effusion no consolidations No acute or chronic pulmonary embolism present. Head CT 06/05/25 17:15 IMPRESSION: No definite acute findings. Laboratory Results WBC 6.18 10^3/uL (3.29-11.43) 06/05/25 15:34 RBC 5.20 10^6/uL (3.85-5.65) 06/05/25 15:34 Hgb 14.90 g/dL (11.27-16.99) 06/05/25 15:34 Hct 44.2 % (36-47) 06/05/25 15:34 MCV 85.0 fl (85-98) 06/05/25 15:34 MCH 28.7 pg (27-33) 06/05/25 15:34 MCHC 33.7 g/dL (30-55) 06/05/25 15:34 RDW 12.8 % (12.1-15.1) 06/05/25 15:34 Plt Count 302 10^3/cmm (157-399) 06/05/25 15:34 MPV 9.0 fL (7.4-10.4) 06/05/25 15:34 Neut % (Auto) 39.9 % 06/05/25 15:34 Lymph % (Auto) 49.2 % 06/05/25 15:34 [place] % (Auto) 7.0 % 06/05/25 15:34 Eos % (Auto) 2.9 % 06/05/25 15:34 Baso % (Auto) 0.8 % 06/05/25 15:34 Neut # (Auto) 2.47 10^3/uL (1.8-7.7) 06/05/25 15:34 Lymph # (Auto) 3.0 10^3/uL (0.8-4.8) 06/05/25 15:34 [place] # (Auto) 0.4 10^3/uL (0.2-0.9) 06/05/25 15:34 Eos # (Auto) 0.2 10^3/uL (0.0-0.8) 06/05/25 15:34 Baso # (Auto) 0.1 10^3/uL (0.0-0.1) 06/05/25 15:34 Nucleated RBC % (auto) 0 % 06/05/25 15:34 Nucleated RBCs # 0.0 /100WBC 06/05/25 15:34 PT 12.40 SECONDS (12.1-14.9) 06/05/25 15:34 INR 0.86 (0.8-1.2) 06/05/25 15:34 APTT 25.9 SECONDS (23.9-36.7) 06/05/25 15:34 Sodium 136 mmol/L (136-145) 06/05/25 15:34 Potassium 3.4 mmol/L (3.5-5.1) L 06/05/25 15:34 Chloride 99 mmol/L (98-107) 06/05/25 15:34 Carbon Dioxide 25 mmol/L (22-29) 06/05/25 15:34 Anion Gap 15.4 (5-19) 06/05/25 15:34 BUN 8 mg/dL (8-23) 06/05/25 15:34 Creatinine 0.6 mg/dL (0.5-0.9) 06/05/25 15:34 GFR Calculation Not Reportable 06/05/25 15:34 Glucose 107 mg/dL (65-115) 06/05/25 15:34 Calculated Osmolality 281 mOsm/kg (285-295) L 06/05/25 15:34 Calcium 9.3 mg/dL (8.5-10.5) 06/05/25 15:34 Total Bilirubin 0.5 mg/dL (0.15-1.2) 06/05/25 15:34 AST 23 U/L (0-32) 06/05/25 15:34 ALT 16 U/L (0-33) 06/05/25 15:34 Alkaline Phosphatase 73 U/L (35-105) 06/05/25 15:34 Troponin T Baseline 67 ng/L (0-10) H 06/05/25 15:34 Troponin T 120 Minute 71.84 ng/L (0-10) H 06/05/25 17:21 Delta Troponin T 4.84 ABS# (0-10) 06/05/25 17:21 NT-Pro-B Natriuret Pep 54 pg/mL (0-125) 06/05/25 15:34 Total Protein 7.2 g/dL (6.6-8.7) 06/05/25 15:34 Albumin 4.6 g/dL (3.5-5.2) 06/05/25 15:34 Globulin 2.6 g/dL (1.3-4.6) 06/05/25 15:34 Lipase 34 U/L (13-60) 06/05/25 15:34 Urine Color Yellow (Yellow) 06/05/25 15:05 Urine Appearance Clear (CLEAR) 06/05/25 15:05 Urine pH 8.0 (5-7) A 06/05/25 15:05 Ur Specific [place] 1.004 (1.005-1.030) L 06/05/25 15:05 Urine Protein Negative (Negative) 06/05/25 15:05 Urine Glucose (UA) Negative (Normal) 06/05/25 15:05 Urine Ketones Negative (Negative) 06/05/25 15:05 Urine Blood Negative (Negative) 06/05/25 15:05 Urine Nitrate Negative (Negative) 06/05/25 15:05 Urine Bilirubin Negative (Negative) 06/05/25 15:05 Urine Urobilinogen 0.2 mg/dL (Negative) 06/05/25 15:05 Ur Leukocyte Esterase 2+ (Negative) A 06/05/25 15:05 Urine RBC 0-2 /hpf (0-2) 06/05/25 15:05 Urine WBC 11-20 /hpf (0-5) H 06/05/25 15:05 Ur Squamous Epith Cells 0-5 /hpf (0-5) 06/05/25 15:05 Amorphous Sediment Not Reportable 06/05/25 15:05 Urine Bacteria Trace /hpf (NONE) 06/05/25 15:05 Hyaline Casts 0-4 /lpf H 06/05/25 15:05 All radiology interpretation(s) finalized by discharge Discharge Plan Discharge Patient Disposition: Home Clinical Impression: Dyspnea, Dehydration, Acute UTI Condition: Stable Prescriptions: New cephalexin 500 mg tablet 500 mg PO TID 7 Days Qty: 21 0RF No Action omega 2-mdk-sha-fish oil [Fish Oil] 300-1,000 mg capsule 1 cap PO DAILY d-mannose 500 mg capsule PO sucralfate [Carafate] 1 gram tablet 1 g PO BID 42 Days Qty: 84 0RF pantoprazole [Protonix] 40 mg tablet,delayed release (DR/EC) 40 mg PO BID 42 Days Qty: 84 0RF venlafaxine 37.5 mg capsule,extended release 24hr 37.5 mg PO DAILY clonazepam 1 mg tablet 1 mg PO BID PRN (Reason: Anxiety) venlafaxine 75 mg capsule,extended release 24hr 75 mg PO .QOD Discharge Orders: Discharge ED (Routine); Ordered 06/05/25 Ordered By: Jyoti Morgan Referrals: Clement Mariee MD [Primary Care Provider, Family Practice] Discharge Diet: Usual diet Discharge Activity: Increase activity as tolerated Patient Instructions: Urinary Tract Infection in Women (ED), Opioid Safety, Pain Management, Patient Portal & [place] Instructions Activity Restrictions/Additional Instructions: Thank you for choosing [facility] for your healthcare needs today. You have been screened and evaluated and felt safe for discharge. Health conditions do change or evolve sometimes and as such it is important that you follow up with your Primary Doctor to be re checked, 3-5 days is a general good time frame for follow up. You are always welcome to return to the ED for re assessment if your symptoms are worsening or you have new concerns Print Language: Lithuanian Coding Level of Care Code ED Learning And Development Manager for Stefany Raza
[2025-06-05 15:50] LABS: Hematocrit 44.2 % (36-47); Hemoglobin 14.90 g/dL (11.27-16.99); Mean Corpuscular HGB Conc 33.7 g/dL (30-55); Mean Corpuscular Hemoglobin 28.7 pg (27-33); Mean Corpuscular Volume 85.0 fl (85-98); Nucleated Red Blood Cells % 0 %; Platelet Count 302 10^3/cmm (157-399); Red Blood Count 5.20 10^6/uL (3.85-5.65); White Blood Count 6.18 10^3/uL (3.29-11.43)
[2025-06-05 15:53] LABS: INR 0.86 (0.8-1.2); Prothrombin Time 12.40 SECONDS (12.1-14.9)
[2025-06-05 15:54] LABS: Partial Thromboplastin Time 25.9 SECONDS (23.9-36.7)
[2025-06-05 16:05] LABS: Troponin(5th) Baseline 67 ng/L (0-10)
[2025-06-05 16:16] LABS: Alanine Aminotransferase 16 U/L (0-33); Albumin Level 4.6 g/dL (3.5-5.2); Alkaline Phosphatase 73 U/L (35-105); Anion Gap 15.4 (5-19); Aspartate Amino Transferase 23 U/L (0-32); Blood Urea Nitrogen 8 mg/dL (8-23); Calcium 9.3 mg/dL (8.5-10.5); Carbon Dioxide 25 mmol/L (22-29); Chloride 99 mmol/L (98-107); Globulin 2.6 g/dL (1.3-4.6); Glucose 107 mg/dL (65-115); Lipase 34 U/L (13-60); NT Pro B Type Natriuretic Pept 54 pg/mL (0-125); Osmolality Calculated 281 mOsm/kg (285-295); Potassium 3.4 mmol/L (3.5-5.1); Sodium 136 mmol/L (136-145); Total Protein 7.2 g/dL (6.6-8.7)
--- NOTE | 2025-06-05 16:21 | CTR_ITS ---
PROCEDURE INFORMATION: Exam: CTA Chest With Contrast Exam date and time: 06/05/2025 5:35 PM Age: 75 years old Clinical indication: Shortness of breath; PT states she has been having an increase in weakness and some shortnes of breath for the last few days. PT states she has a history of a stroke. PT denies any use of blood thinners. Dr. Mariee sent PT due to potential pe. pt unable to raise RT arm due to HX of stroke; Additional info: SOB, tachycardia TECHNIQUE: Imaging protocol: Computed tomographic angiography of the chest with contrast. Exam focused on the arteries. 3D rendering (Not supervised by radiologist): MIP and/or 3D reconstructed images were created by the technologist. Radiation optimization: All CT scans at this facility use at least one of these dose optimization techniques: automated exposure control; mA and/or kV adjustment per patient size (includes targeted exams where dose is matched to clinical indication); or iterative reconstruction. Contrast material: [id number]; Contrast volume: 100 ml; Contrast route: INTRAVENOUS (IV); COMPARISON: CR XR chest 1V portable [id number] 06/05/2025 3:51 PM RADIATION DOSE METRICS: Total DLP (mGy-cm): 235.93 FINDINGS: Pulmonary arteries: There is no acute or chronic pulmonary embolism. Aorta: Unremarkable. No aortic aneurysm. No aortic dissection. Lungs: There are subtle findings in the upper and lower lung dior suggest some interlobular septal thickening very early interstitial edema could be considered small left-sided pleural effusion present. There are compressed atelectasis changes lower lobes Pleural spaces: There are no pneumothoraces. Heart: Unremarkable. No cardiomegaly. No pericardial effusion. Lymph nodes: Unremarkable. No enlarged lymph nodes. Bones/joints: Unremarkable. No acute fracture. Soft tissues: Unremarkable. Other findings: There is no aneurysm. CT/CT angio chest PE protcl [id number] IMPRESSION: Findings suspicious for early interstitial edema with small left-sided pleural effusion no consolidations No acute or chronic pulmonary embolism present.
[2025-06-05 16:24] LABS: Glucose Urine UA Negative (Normal); Nitrate Urine Negative (Negative); Specific Gravity, Urine 1.004 (1.005-1.030)
--- NOTE | 2025-06-05 17:15 | CTR_ITS ---
PROCEDURE INFORMATION: Exam: CT Head Without Contrast Exam date and time: 06/05/2025 5:31 PM Age: 75 years old Clinical indication: Condition or disease; Other: HX of stroke; PT states she has been having an increase in weakness and some shortnes of breath for the last few days. PT states she has a history of a stroke. PT denies any use of blood thinners. Dr. Mariee sent PT due to potential pe. ; Additional info: PT request TECHNIQUE: Imaging protocol: Computed tomography of the head without contrast. Radiation optimization: All CT scans at this facility use at least one of these dose optimization techniques: automated exposure control; mA and/or kV adjustment per patient size (includes targeted exams where dose is matched to clinical indication); or iterative reconstruction. COMPARISON: MR head wo/w con [id number] 07/07/2024 11:28 AM RADIATION DOSE METRICS: Total DLP (mGy-cm): 972.65 FINDINGS: Brain: Few lacunar foci in the bilateral basal ganglia, nonspecific although commonly chronic. Encephalomalacia changes of the small area of the posterior left frontal lobe. Chronic small-vessel ischemic change. Cerebral ventricles: Moderate involutional changes of the ventricles and sulci. Paranasal sinuses: Visualized sinuses are unremarkable. No fluid levels. Mastoid air cells: Visualized mastoid air cells are well aerated. Bones: Unremarkable. No acute fracture. Soft tissues: Unremarkable. CT/CT head wo con* [id number] IMPRESSION: No definite acute findings.
--- NOTE | 2025-06-05 17:17 | ECG_ITS ---
[facility] Test Date: 2025-06-05 Pat Name: Kisha Villalobos Department: Room: Gender: Female Generation Engineering Technologist: : 1950 Requested By: Jyoti Adame Order Number: [id number] No MD: Sandie Martínez M.D. Measurements Intervals Ronald Rate: 72 P: 70 WI: 161 QRS: 70 QRSD: 122 T: 63 QT: 412 QTc: 451 Interpretive Statements SINUS RHYTHM RIGHT BUNDLE BRANCH BLOCK [120+ ms QRS DURATION, UPRIGHT V1, 40+ ms S IN I/aVL/V4/V5/V6] Compared to ECG 06/05/2025 15:28:29 No significant changes Electronically Signed On 06-08-2025 00:22:28 RN MOBILE by Sandie Martínez M.D. [email or web address]
[2025-06-05 17:20] VITALS: BP 148/105; PULSE 68; O2SAT 98
[2025-06-05] MEDS: iohexol 350 mg/mL 500 mL Btl (per mL) IV (17:38)
[2025-06-05 17:57] LABS: Troponin 5 2HR 71.84 ng/L (0-10); Troponin 5 2HR Delta 4.84 ABS# (0-10)
[2025-06-05] MEDS: cefTRIAXone 1,000 mg SDV 1000 MG IVP (18:16)
[2025-06-05 18:42] VITALS: BP 140/82; PULSE 91; O2SAT 92
--- OUTSIDE RECORDS SUMMARY | 2025-06-06 00:30 | XMS_ITS | Patient Health Record ---
Author Organization [facility] Address [address] [place] [address] Care Team Providers Care Retread Operator Name Role Phone Stan Lerner Unavailable [phone] Reason For Referral No Information Medications Medication SIG (Take, Route, Frequency, Duration) Notes Start Date End Date Status Pravastatin Sodium 80 MG Tablet Take 1 tablet(s) by mouth at bedtime Oral; Duration: 30 Pravastatin 80mg Tablet Take 1 tablet(s) by mouth at bedtime #30 (Thirty) tablet(s) 08/20/2011 Active clonazePAM 1 MG Tablet one tab po bid prn Oral; Duration: 30 Clonazepam 1mg Tablet one tab po bid prn 03/03/2011 Active SUMAtriptan Succinate 50 MG Tablet Take 1 tablet(s) by mouth prn for migraine Oral; Duration: 30 Sumatriptan 50mg Tablet Take 1 tablet(s) by mouth prn for migraine #1 (One) 9 tablet blister pack 11/14/2010 Active Problems Problem Type SNOMED Code ICD Code Onset Dates Problem Status W/U Status Risk Notes Problem Paranoia (420508086) Paranoia (297.1) 2010 Active confirmed [id number]- Problem Insomnia (681691752) Insomnia (307.41) 2007 Active confirmed [id number]-98 [id number]- Problem Bipolar affective disorder, currently depressed, moderate (408737753) Bipolar I disorder, most recent episode (or current) depressed, moderate (296.52) 2007 Problem resolved confirmed [id number]-[id number] [id number]- Problem Diarrhea (48074411) Diarrhea (787.91) 2007 Problem resolved confirmed [id number]-[id number] [id number]- Problem Headache (22085689) Headache (307.81) 2007 Problem resolved confirmed [facility] 5911- Problem Hypercholesterolemia (23794751) Hypercholesterolemia (272.0) 2007 Problem resolved confirmed [facility]98 5911- Problem Loss of hair (154466814) Loss of hair (704.00) 2006 Problem resolved confirmed Omid-98 [id number]- Problem Bipolar disorder (02078311) Bipolar disorder (296.7) 2007 Problem resolved confirmed [facility] 5911- Problem Bipolar I disord er, most recent episode (or current) depressed (296.5) 2009 Problem resolved confirmed Omid-[id number] [id number]- Problem Migraine with aura (5966942) Classic migraine (346.00) 2007 Problem resolved confirmed Omid-98 [id number]- Problem Nausea (703967520) Nausea (787.02) 2010 Problem resolved confirmed Omid-98 [id number]- Problem Primary hypercholesterolemia (557534942) Primary hypercholesterolemia (272.0) 2010 Problem resolved confirmed [facility]98 5911- Plan Of Treatment No Information Insurance Providers Payer Name Payer Address Payer Phone Subscriber Number Group Number Insured Name Patient Relationship to Insured Coverage Start Date Coverage End Date [employer] Medicare Replacemen t - PPO [address] [place] [address] [id number] Kisha Villalobos Self - patient is the insured [place] [address] [place] [address] [id number] Kisha Villalobos Self - patient is the insured Medical (General) History Surgical History Surgery Date(Month/Year) NONE
--- OUTSIDE RECORDS SUMMARY | 2025-06-06 00:30 | XMS_ITS | Clinical Summary ---
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
--- OUTSIDE RECORDS SUMMARY | 2025-06-06 00:31 | XMS_ITS | Clinical Summary ---
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
--- OUTSIDE RECORDS SUMMARY | 2025-06-06 00:32 | XMS_ITS | Encounter Summary ---
Author Organization [facility] Address [address] [place] [address] Care Team Providers Care Surgical Sales Representative Name Role Phone Unavailable Primary Care Provider Unavailabl e Encounter Details Date Type Department Care Team (Latest Contact Info) Description 06/24/1999 Outpatient Historical [facility] General and Trauma Surgery-[address] [place] [address] Dorie Waddell MD NO ADDRESS ON FILE Liver laceration, minor, without mention of open wound into cavity (Primary Dx) Social History Tobacco Use Types Packs/Day Years Used Date Smoking Tobacco: Never Assessed Comments Unknown Sex and Gender Information Value Date Recorded Sex Assigned at Not on file 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
== END 2025-06-05 19:05 | disposition home or self-care (01) ==
PROVIDERS: Emergency Provider Emergency Medicine; PCP Family Medicine
DX: R06.00 Dyspnea, unspecified (principal); E86.0 Dehydration; N39.0 Urinary tract infection, site not specified; I10 Essential (primary) hypertension
CPT/HCPCS: 36415; 70450; 71045; 71275; 80053; 81001; 83690; 83880; 84484; 85025; 85610; 85730; 93005; 96361; 96374; 99285; J0696; J7040

== ENCOUNTER 2025-06-18 08:20 | Emergency (ER) | payer MEDICARE, MEDICAID, SELFPAY ==
[2025-06-18 08:23] VITALS: BP 181/114; PULSE 96; RESP 18; TEMP 36.6; O2SAT 95; BMI 20.5
--- OUTSIDE RECORDS SUMMARY | 2025-06-18 08:28 | XMS_ITS | Encounter Summary ---
Author Organization [facility] Address [address] [place] [address] Care Team Providers Care Boarding Machine Operator Name Role Phone Unavailable Primary Care Provider Unavailabl e Encounter Details Date Type Department Care Team (Latest Contact Info) Description 06/24/1999 Outpatient Historical [facility] General and Trauma Surgery-[address] [place] [address] Dorie Waddell MD NO ADDRESS ON FILE Liver laceration, minor, without mention of open wound into cavity (Primary Dx) Social History Tobacco Use Types Packs/Day Years Used Date Smoking Tobacco: Never Assessed Comments Unknown Sex and Gender Information Value Date Recorded Sex Assigned at Not on file 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
--- OUTSIDE RECORDS SUMMARY | 2025-06-18 08:28 | XMS_ITS | Encounter Summary ---
Author Organization [facility] Address [address] [place] [address] Care Team Providers Care Field Assistant Name Role Phone Unavailable Primary Care Provider Unavailabl e Encounter Details Date Type Department Care Team (Latest Contact Info) Description 05/09/1999 Outpatient Historical [facility] General and Trauma Surgery-[address] [place] [address] Dorie Waddell MD NO ADDRESS ON FILE Liver laceration, minor, without mention of open wound into cavity (Primary Dx); Accident involving animal being ridden injuring rider of animal Social History Tobacco Use Types Packs/Day Years Used Date Smoking Tobacco: Never Assessed Comments Unknown Sex and Gender Information Value Date Recorded Sex Assigned at Not on file 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
--- OUTSIDE RECORDS SUMMARY | 2025-06-18 08:28 | XMS_ITS | Clinical Summary ---
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
--- OUTSIDE RECORDS SUMMARY | 2025-06-18 08:28 | XMS_ITS | Patient Health Record ---
Author Organization [facility] Address [address] [place] [address] Care Team Providers Care Property Portfolio Officer Name Role Phone Stan Lerner Unavailable [phone] Reason For Referral No Information Medications Medication [...] Problem Status W/U Status Risk Notes Problem Information temporarily unavailable Paranoia (297.1) 011 Active confirmed [id number]- Problem Information temporarily unavailable Insomnia (307.41) 008 Active confirmed [id number]- Problem Information temporarily unavailable Bipolar I disorder, most recent episode (or current) depressed, moderate (296.52) 008 Problem resolved confirmed [id number]- Problem Information temporarily unavailable Diarrhea (787.91) 008 Problem resolved confirmed [id number]- Problem Information temporarily unavailable Headache (307.81) 008 Problem resolved confirmed [id number]- Problem Information temporarily unavailable Hypercholesterolemia (272.0) 008 Problem resolved confirmed [id number]- Problem Information temporarily unavailable Loss of hair (704.00) 007 Problem resolved confirmed [id number]- Problem Information temporarily unavailable Bipolar disorder (296.7) 008 Problem resolved confirmed [id number]- Problem Information temporarily unavailable Bipolar I disorder, most recent episode (or current) depressed (296.5) 010 Problem resolved confirmed [id number]- Problem Information temporarily unavailable Classic migraine (346.00) 008 Problem resolved confirmed [id number]- Problem Information temporarily unavailable Nausea (787.02) 011 Problem resolved confirmed [id number] 911- Problem Information temporarily unavailable Primary hypercholesterolemia (272.0) 011 Problem resolved confirmed [id number] 911- Plan Of Treatment No Information Insurance Providers Payer Name Payer Address Payer Phone Subscriber Number Group Number Insured Name Patient Relationship to Insured Coverage Start Date Coverage End Date [employer] Medicare Replacemen t - PPO [address] [place] [address] [id number] Kisha Villalobos Self - patient is the insured [place] Medicaid [address] [place] [address] [id number] Kisha Villalobos Self - patient is the insured Medical (General) History Surgical History Surgery Date(Month/Year) NONE
--- OUTSIDE RECORDS SUMMARY | 2025-06-18 08:28 | XMS_ITS | Clinical Summary ---
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
[2025-06-18 08:31] VITALS: BP 181/114; PULSE 96; RESP 18; O2SAT 95
--- NOTE | 2025-06-18 08:51 | W.ED.FEMALGU ---
HPI - Female Genitourinary General: Chief complaint: Urogenital-Female Stated complaint: pos uti Time Seen by Provider: 06/18/25 08:23 Source: patient Mode of arrival: ambulatory Limitations: no limitations History of Present Illness: 75-year-old female states that she has not been feeling well. She states she is feels generally unwell has little lower abdominal pain. She denies any fevers vomiting or diarrhea. She states that she is has frequent UTIs and this is how she typically feels. Denies any worse improved factors. Patient states she has been feeling generally weak as well Related Data Home Medications ?Medication ?Instructions ?Recorded ?Confirmed clonazepam 1 mg tablet 1 mg PO BID PRN Anxiety 07/29/24 06/18/25 venlafaxine 37.5 mg 37.5 mg PO .QOD 07/29/24 06/18/25 capsule,extended release 24 hr venlafaxine 75 mg capsule,extended 75 mg PO .QOD 01/29/25 06/18/25 release 24 hr d-mannose 500 mg capsule 500 mg PO BID 05/18/25 06/18/25 omega 7-gne-xys-fish oil 300 1 cap PO DAILY 05/18/25 06/18/25 mg-1,000 mg capsule (Fish Oil) cranberry extract 500 mg capsule 500 mg PO BID 06/18/25 06/18/25 Previous Rx's ?Medication ?Instructions ?Recorded pantoprazole 40 mg tablet,delayed 40 mg PO BID 6 weeks #84 tabs 05/18/25 release (Protonix) sucralfate 1 gram tablet (Carafate) 1 g PO BID 6 weeks #84 tabs 05/18/25 nitrofurantoin 100 mg PO Q12H 5 days #10 caps 06/14/25 monohydrate/macrocrystals 100 mg capsule (Macrobid) Allergies Allergy/AdvReac Type Severity Reaction Status Date / Time divalproex sodium (From Allergy Mild ADR-Confusi Verified 06/18/25 08:31 Depakote) on amlodipine Allergy Unknown Verified 06/18/25 08:31 aripiprazole (From Abilify) Allergy ADR-Irritab Verified 06/18/25 08:31 le lisinopril Allergy ADR-Cough Verified 06/18/25 08:31 lithium Allergy Unknown Verified 06/18/25 08:31 losartan Allergy Unknown Verified 06/18/25 08:31 quetiapine (From Seroquel) Allergy ADR-Halluci Verified 06/18/25 08:31 nating vilazodone (From Viibryd) Allergy Unknown Verified 06/18/25 08:31 PFS ED PFSH: Medical History (Updated 06/18/25 @ 09:33 by Jose Luis Wiseman MD) Bipolar 1 disorder Benign hypertension FH: premature coronary heart disease Sepsis Cataract (lens) fragments in eye following cataract surgery, bilateral Cerebral hemorrhage with hemiparesis Cystocele with third degree uterine prolapse Bipolar 2 disorder Generalized anxiety disorder Family History Mother Heart disease Stroke Hypertension Hyperlipidemia Denies family history of Colon cancer Ovarian cancer Breast cancer Uterine cancer Thyroid disease Social History Smoking and tobacco/nicotine status: never used tobacco/nicotine Alcohol intake: never Substance/Drug Use: never Lives independently: Yes Household members: significant other Physical Exam Const: COMMON NORMALS: no acute distress, patient oriented x3 and healthy appearing HENMT: COMMON NORMALS: normocephalic and atraumatic HEAD & SCALP: normocephalic and atraumatic Neck/C-Spine: COMMON NORMALS: full ROM and supple Chest: COMMONS NORMALS: normal inspection of the chest Resp: COMMON NORMALS: normal respiratory effort Cardio: COMMON NORMALS: regular rate, regular rhythm and No murmurs present (Cardio) RATE: regular rate RHYTHM: regular rhythm GI: COMMON NORMALS: Normal to inspection, nondistended, normoactive bowel sounds present, Soft to palpation, non-tender and no masses PALPATION: Yes Soft to palpation Extremity: COMMON NORMALS: normal to inspection and full ROM Neuro: COMMON NORMALS: patient oriented x3, moves all extremities and no focal motor deficits Psych: COMMON NORMALS: mental status grossly normal, Normal thought process present and cooperative THOUGHT PROCESS: Normal thought process present Skin: COMMON NORMALS: no rashes or lesions noted and no wounds GENERAL SKIN EXAM: no rashes or lesions noted Course Vital Signs: Vital signs: Vital Signs Temperature 97.9 F 06/18/25 08:23 Pulse Rate 96 06/18/25 08:31 Respiratory Rate 18 06/18/25 08:31 Blood Pressure 181/114 11/30/25 08:31 Pulse Oximetry 95 06/18/25 08:31 Oxygen Delivery Me thod Room Air 06/18/25 08:23 MDM - Female Medical Decision Making 75-year-old female presents here with general weakness was concerned about a UTI. Differential includes anemia, acute cystitis. Patient's been well-appearing here she has no focal deficits no signs of neurologic cause. Urinalysis showed no UTI blood work showed no significant abnormality she feels improved here after fluids her vitals here been normal. Patient is stable for discharge she is to follow-up with her PCP and return if worsening Medical Records I reviewed the patient's medical records. Lab Data I reviewed the patient's lab results. 06/18/25 09:05 06/18/25 09:05 Laboratory Results WBC 4.61 10^3/uL (3.29-11.43) 06/18/25 09:05 RBC 5.00 10^6/uL (3.85-5.65) 06/18/25 09:05 Hgb 14.60 g/dL (11.27-16.99) 06/18/25 09:05 Hct 42.7 % (36-47) 06/18/25 09:05 MCV 85.4 fl (85-98) 06/18/25 09:05 MCH 29.2 pg (27-33) 06/18/25 09:05 MCHC 34.2 g/dL (30-55) 06/18/25 09:05 RDW 13.1 % (12.1-15.1) 06/18/25 09:05 Plt Count 281 10^3/cmm (157-399) 06/18/25 09:05 MPV 8.9 fL (7.4-10.4) 06/18/25 09:05 Neut % (Auto) 39.4 % 06/18/25 09:05 Lymph % (Auto) 46.0 % 06/18/25 09:05 [place] % (Auto) 7.2 % 06/18/25 09:05 Eos % (Auto) 5.9 % 06/18/25 09:05 Baso % (Auto) 1.5 % 06/18/25 09:05 Neut # (Auto) 1.82 10^3/uL (1.8-7.7) 06/18/25 09:05 Lymph # (Auto) 2.1 10^3/uL (0.8-4.8) 06/18/25 09:05 [place] # (Auto) 0.3 10^3/uL (0.2-0.9) 06/18/25 09:05 Eos # (Auto) 0.3 10^3/uL (0.0-0.8) 06/18/25 09:05 Baso # (Auto) 0.1 10^3/uL (0.0-0.1) 06/18/25 09:05 Nucleated RBC % (auto) 0 % 06/18/25 09:05 Nucleated RBCs # 0.0 /100WBC 06/18/25 09:05 Sodium 138 mmol/L (136-145) 06/18/25 09:05 Potassium 3.9 mmol/L (3.5-5.1) 06/18/25 09:05 Chloride 102 mmol/L (98-107) 06/18/25 09:05 Carbon Dioxide 24 mmol/L (22-29) 06/18/25 09:05 Anion Gap 15.9 (5-19) 06/18/25 09:05 BUN 12 mg/dL (8-23) 06/18/25 09:05 Creatinine 0.6 mg/dL (0.5-0.9) 06/18/25 09:05 GFR Calculation Not Reportable 06/18/25 09:05 Glucose 106 mg/dL (65-115) 06/18/25 09:05 Calculated Osmolality 286 mOsm/kg (285-295) 06/18/25 09:05 Calcium 9.1 mg/dL (8.5-10.5) 06/18/25 09:05 Total Bilirubin 0.4 mg/dL (0.15-1.2) 06/18/25 09:05 AST 19 U/L (0-32) 06/18/25 09:05 ALT 16 U/L (0-33) 06/18/25 09:05 Alkaline Phosphatase 69 U/L (35-105) 06/18/25 09:05 Total Protein 7.0 g/dL (6.6-8.7) 06/18/25 09:05 Albumin 4.3 g/dL (3.5-5.2) 06/18/25 09:05 Globulin 2.7 g/dL (1.3-4.6) 06/18/25 09:05 Lipase 36 U/L (13-60) 06/18/25 09:05 Urine Color Yellow (Yellow) 06/18/25 09:13 Urine Appearance Clear (CLEAR) 06/18/25 09:13 Urine pH 7.5 (5-7) 06/18/25 09:13 Ur Specific [place] 1.005 (1.005-1.030) 06/18/25 09:13 Urine Protein Negative (Negative) 06/18/25 09:13 Urine Glucose (UA) Negative (Normal) 06/18/25 09:13 Urine Ketones Negative (Negative) 06/18/25 09:13 Urine Blood Negative (Negative) 06/18/25 09:13 Urine Nitrate Negative (Negative) 06/18/25 09:13 Urine Bilirubin Negative (Negative) 06/18/25 09:13 Urine Urobilinogen 0.2 mg/dL (Negative) 06/18/25 09:13 Ur Leukocyte Esterase Negative (Negative) 06/18/25 09:13 Urine RBC 0-2 /hpf (0-2) 06/18/25 09:13 Urine WBC 0-5 /hpf (0-5) 06/18/25 09:13 Ur Squamous Epith Cells 0-5 /hpf (0-5) 06/18/25 09:13 Amorphous Sediment Not Reportable 06/18/25 09:13 Urine Bacteria None seen /hpf (NONE) 06/18/25 09:13 Hyaline Casts 0-4 /lpf H 06/18/25 09:13 No radiology studies performed this visit Discharge Plan Discharge Patient Disposition: Home Clinical Impression: Generalized weakness Condition: Stable Prescriptions: No Action omega 1-nvc-fao-fish oil [Fish Oil] 300-1,000 mg capsule 1 cap PO DAILY d-mannose 500 mg capsule 500 mg PO BID sucralfate [Carafate] 1 gram tablet 1 g PO BID 42 Days Qty: 84 0RF pantoprazole [Protonix] 40 mg tablet,delayed release (DR/EC) 40 mg PO BID 42 Days Qty: 84 0RF nitrofurantoin monohyd/m-cryst [Macrobid] 100 mg capsule 100 mg PO Q12H 5 Days Qty: 10 0RF Rx Instructions: must administer with a meal/food venlafaxine 37.5 mg capsule,extended release 24hr 37.5 mg PO .QOD clonazepam 1 mg tablet 1 mg PO BID PRN (Reason: Anxiety) venlafaxine 75 mg capsule,extended release 24hr 75 mg PO .QOD cranberry extract 500 mg Capsule 500 mg PO BID Rx Instructions: administer with meals Discharge Orders: Discharge ED (Routine); Ordered 06/18/25 Ordered By: Jose Luis Wiseman Referrals: Clement Mariee MD [Primary Care Provider, [facility]] - 4-7 days Discharge Diet: Advance as tolerated Discharge Activity: Resume usual activity Patient Instructions: Weakness (Generalized) Print Language: Korean Coding Level of Care Code ED Senior Medical Transcriptionist for Stefany Raza
[2025-06-18 09:09] LABS: Hematocrit 42.7 % (36-47); Hemoglobin 14.60 g/dL (11.27-16.99); Mean Corpuscular HGB Conc 34.2 g/dL (30-55); Mean Corpuscular Hemoglobin 29.2 pg (27-33); Mean Corpuscular Volume 85.4 fl (85-98); Nucleated Red Blood Cells % 0 %; Platelet Count 281 10^3/cmm (157-399); Red Blood Count 5.00 10^6/uL (3.85-5.65); White Blood Count 4.61 10^3/uL (3.29-11.43)
[2025-06-18] MEDS: ondansetron 2 mg/ML SDV 2 mL 4 MG IVP (09:15)
[2025-06-18 09:22] LABS: Glucose Urine UA Negative (Normal); Nitrate Urine Negative (Negative); Specific Gravity, Urine 1.005 (1.005-1.030)
[2025-06-18 09:26] LABS: Alanine Aminotransferase 16 U/L (0-33); Albumin Level 4.3 g/dL (3.5-5.2); Alkaline Phosphatase 69 U/L (35-105); Anion Gap 15.9 (5-19); Aspartate Amino Transferase 19 U/L (0-32); Blood Urea Nitrogen 12 mg/dL (8-23); Calcium 9.1 mg/dL (8.5-10.5); Carbon Dioxide 24 mmol/L (22-29); Chloride 102 mmol/L (98-107); Creatinine Clr Calc Pharmacy 53.9763; Globulin 2.7 g/dL (1.3-4.6); Glucose 106 mg/dL (65-115); Lipase 36 U/L (13-60); Osmolality Calculated 286 mOsm/kg (285-295); Potassium 3.9 mmol/L (3.5-5.1); Sodium 138 mmol/L (136-145); Total Protein 7.0 g/dL (6.6-8.7)
[2025-06-18 09:27] LABS: Add Urine Microscopic? YES
[2025-06-18 09:43] VITALS: BP 130/83; PULSE 85; O2SAT 97
== END 2025-06-18 09:45 | disposition home or self-care (01) ==
PROVIDERS: Emergency Provider Emergency Medicine; PCP Family Medicine
DX: R53.1 Weakness (principal); I10 Essential (primary) hypertension
CPT/HCPCS: 36415; 80053; 81001; 83690; 85025; 96374; 99284; J2405; J7030

== ENCOUNTER → 2025-07-06 14:04 | Outpatient (BNVA) | payer MEDICARE, MEDICAID, SELFPAY | PROVIDERS: PCP Family Medicine; Visit Provider Family Medicine | DX: R39.9 Unspecified symptoms and signs involving the genitourinary system (principal) | CPT/HCPCS: 81000 ==